=== PATIENT | female | born 1935 | race Caucasian/White ===

== ENCOUNTER 2016-05-01 12:52 | Inpatient (IN) | payer MEDICARE ==
[2016-05-01 15:47] VITALS: BMI 38.2
[2016-05-01] MEDS: KETOROLAC 30 MG/ML 1 ML VIAL IVP SCH (18:04)
[2016-05-01] MEDS: LIDOCAINE 5% PATCH TOPICAL SCH (18:05)
[2016-05-01] MEDS ORDERED: CYCLOBENZAPRINE 5 MG TAB PO STA (19:29)
--- NOTE | 2016-05-01 19:29 | P.HPIM ---
History of Present Illness H&P Date: 05/01/16 Chief Complaint: abd pain 80 yr old female with history of COPD is admitted to the hospital from [facility] after being admitted for sudden onset of abdominal pain. Pt apparently got out of bed on tuesday, suddenly noticed abdominal pain, right sided, radiating to her groin, intermittent in nature, exacerbated by movement relieved with rest. Pt thereafter drove to the ER, pt was admitted and was seen by Dr Waddell. Pt was in good health till she woke up that morning, denies having any fevers, chills, change in bowel habits, urinary urgency or frequency. Pt then underwent a CT scan to rule out appendicitis, was noted to have a non inflamed appendix, with non specific diverticuli, with no signs of active inflammation. No signs of occult fracture was noted. today, pt complaints of pain, with raising her right lower extremity, points to an area about 10cms from her umbilicus, laterally to the right. No previous surgeries in that area. Is usually healthy and very active. pt apparently also removed mariusz lights the night before the pain started, maneuvering around with a ladder. 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 History of Any Multi-Drug Resistant Organisms: None Reported Past Surgical History: Back Surgery Additional Past Surgical History / Comment(s): LAMINECTOMY, LEFT TOE SURGERY, ELBOW ON RIGHT, RIGHT CARPAL TUNNEL Past Anesthesia/Blood Transfusion Reactions: No Reported Reaction Past Psychological History: No Psychological Hx Reported Smoking Status: Never smoker - Past Family History Mother Additional Family Medical History / Comment(s): MOM PASSED FROM BLOOD CLOT Father Family Medical History: Dementia Medications and Allergies Home Medications Medication Instructions Recorded Confirmed Type Albuterol Sulfate [Proair Hfa] 1 puff INHALATION RT-BID 05/01/16 05/01/16 History Aspirin [Adult Low Dose Aspirin EC] 81 mg PO DAILY 05/01/16 05/01/16 History Budesonide/Formoterol Fumarate 2 puff INHALATION RT-BID 05/01/16 05/01/16 History [Symbicort 80-4.5 Mcg Inhaler] Cyanocobalamin (Vitamin B-12) 1 tab PO DAILY 05/01/16 05/01/16 History [Vitamin B12] Furosemide [Lasix] 20 mg PO DAILY 05/01/16 05/01/16 History Lisinopril [Zestril] 20 mg PO DAILY 05/01/16 05/01/16 History Multivitamin [Multivitamins Adult 1 tab PO DAILY 05/01/16 05/01/16 History Gummies] Simvastatin [Zocor] 40 mg PO HS 05/01/16 05/01/16 History Tiotropium 18 Mcg/Puff [Spiriva] 1 cap INHALATION RT-DAILY 05/01/16 05/01/16 History Vit A,C & E/Lutein/Minerals 1 tab PO DAILY 05/01/16 05/01/16 History [Ocuvite with Lutein Tablet] Allergies Allergy/AdvReac Type Severity Reaction Status Date / Time Sulfa (Sulfonamide Allergy Anaphylaxis Verified 05/01/16 15:47 Antibiotics) Physical Exam Vitals: Vital Signs Temp Pulse Resp BP Pulse Ox 05/01/16 15:14 101.2 F H 87 22 96/58 91 L Intake and Output 05/01/16 05/01/16 05/01/16 06:59 14:59 22:59 Other: Voiding Method Indwelling Catheter Weight 86 kg Patient Weight 05/02/16 06:59 Weight 86 kg Gen a & O times 4, appears to be in mod distress Lungs CTA b/l, no rhochi, wheezing appreciated Heart RRR, No murmurs appreciated, s1, s2 heard Abdomen: soft, point tenderness in the right lower quadrant, mostly in the abdominal wall, was able to reproduce the pain with pinching the abdominal wall fat. No RUQ tenderness. straight leg raise worsens the pain, however, it is more predominat at the same point, no organomegaly appreciated Hip joint appears stable, non tender to manipulation. Gamino in place Neuro : no focal motor or sensory deficits noted. Thrombosis Risk Factor Assmnt - Choose All That Apply Each Factor Represents 1 point: Obesity (BMI >25) Other Risk Factors: Yes Each Risk Factor Represents 3 Points: Age 75 years or older Other congenital or acquired thrombophilia - If yes, enter type in comment: No Thrombosis Risk Factor Assessment Total Risk Factor Score: 4 Thrombosis Risk Factor Assessment Level: Moderate Risk Assessment and Plan Plan: Abdominal pain, likely secondary to abdominal wall injury with rectus muscle sprain/tear vs panniculitis COPD that is stable HTN stable Dyslipidemia Plan Lidocaine patch one dose of flexeril Toradol 15mg iv q6h Reviewed ct scan results Lab work from [facility] Bed rest DVT prophylaxis with lovenox. Will obtain calcium and phos levels. to obtain a ca, phos score to rule out calciphylaxis. pain control.
[2016-05-01] MEDS: ALBUTEROL NEBULIZED 2.5 MG/3 ML INHALATION SCH (19:48)
[2016-05-01] MEDS: SYMBICORT 80-4.5 MCG INHALER INHALATION SCH (19:48)
[2016-05-01] MEDS: ENOXAPARIN 40 MG/0.4 ML SYRINGE SQ SCH (22:55)
[2016-05-02] MEDS: KETOROLAC 30 MG/ML 1 ML VIAL IVP SCH ×5 (00:02→23:22)
[2016-05-02] MEDS: ATORVASTATIN 20 MG TAB PO SCH ×2 (00:09→22:18)
[2016-05-02] MEDS: ALBUTEROL NEBULIZED 2.5 MG/3 ML INHALATION SCH ×2 (07:40→20:09)
[2016-05-02] MEDS: TIOTROPIUM 18 MCG/PUFF INHALER INHALATION SCH (08:35)
[2016-05-02] MEDS: SYMBICORT 80-4.5 MCG INHALER INHALATION SCH ×2 (08:38→20:09)
[2016-05-02] MEDS: ASPIRIN 81 MG CHEW PO SCH (09:20)
[2016-05-02] MEDS: LIDOCAINE 5% PATCH TOPICAL SCH (09:21)
[2016-05-02] MEDS: CYANOCOBALAMIN 500 MCG TAB PO SCH (09:21)
[2016-05-02 09:26] LABS: Basophils % (A) 1 %; CH 28.6; CHCM 31.3; Eosinophils # (A) 0.1 k/uL (0-0.7); Eosinophils % (A) 1 %; HCT 36.3 % (34.0-46.0); HDW 2.34; HGB 11.2 gm/dL (11.4-16.0); Luc % (Auto) 2; Lymphocytes # (A) 1.8 k/uL (1.0-4.8); Lymphocytes % (A) 30 %; MCH 28.4 pg (25.0-35.0); MCV 91.9 fL (80.0-100.0); Mean Platelet Volume 7.2; Monocytes # (A) 0.3 k/uL (0-1.0); Monocytes % (A) 6 %; Neutrophils # (A) 3.7 k/uL (1.3-7.7); Neutrophils % (A) 61 %; RBC 3.95 m/uL (3.80-5.40); RDW 13.5 % (11.5-15.5); WBC (Perox) 6.38
[2016-05-02 09:44] LABS: ALT 31 U/L (9-52); AST 18 U/L (14-36); Alkaline Phosphatase 70 U/L (38-126); Anion Gap 8 mmol/L; Blood Urea Nitrogen 22 mg/dL (7-17); Calcium 8.6 mg/dL (8.4-10.2); Carbon Dioxide 25 mmol/L (22-30); Chloride 106 mmol/L (98-107); Glucose 70 mg/dL (74-99); Non-African American GFR(MDRD) 57 (>60 ml/min/1.73 sqM); Phosphorous 3.8 mg/dL (2.5-4.5); Potassium 4.5 mmol/L (3.5-5.1); Sodium 139 mmol/L (137-145); Total Bilirubin 0.4 mg/dL (0.2-1.3); Total Protein 5.8 g/dL (6.3-8.2)
[2016-05-02] MEDS: HYDROmorphone 1 MG/ML 1 ML SYRINGE IVP PRN (13:23)
[2016-05-02] MEDS: ENOXAPARIN 40 MG/0.4 ML SYRINGE SQ SCH (17:44)
--- NOTE | 2016-05-02 19:07 | P.PN ---
Subjective 80-year-old female is admitted to the hospital from [facility] after being admitted for sudden onset of abdominal pain. Patient underwent a computed tomography scan of the abdomen pelvis and lower extremities did not reveal any abnormalities. Patient started having abdominal pain suddenly after moving out of bed. Pain appears to be secondary to his abdominal wall injury, or muscle sprain versus panniculitis Denies having any fevers, chills, nausea, vomiting, diarrhea. Patient states that the pain gets worse with any movement or raising her right lower extremity. Objective - Vital Signs Vital signs: Vital Signs Temp 98.6 F 05/02/16 14:53 Pulse 67 05/02/16 14:53 Resp 18 05/02/16 14:53 BP 112/54 05/02/16 14:53 Pulse Ox 96 05/02/16 14:53 Intake & Output 05/02/16 05/02/16 05/03/16 06:59 18:59 06:59 Output Total 800 600 Balance -800 -600 Output: Urine 800 600 Other: Voiding Method Indwelling Catheter Indwelling Catheter - Exam Gen. appearance alert oriented 3 in mild distress Lungs good air entry clear to auscultation no rhonchi or wheezing Heart S1-S2 heard regular rate and rhythm no murmurs appreciated Abdomen Is soft, point tenderness in the right hemiabdomen about 10 cm lateral to the umbilicus. Also reproduced with flexion at the hip joint Neurologically no focal motor or sensory deficits appreciated Neck is supple no JVD - Labs CBC & Chem 7: 05/02/16 08:43 05/02/16 08:43 Labs: Abnormal Lab Results - Last 24 Hours (Table) 05/02/16 05/02/16 Range/Units 08:43 08:43 Hgb 11.2 L (11.4-16.0) gm/dL BUN 22 H (7-17) mg/dL Glucose 70 L (74-99) mg/dL Total Protein 5.8 L (6.3-8.2) g/dL Albumin 3.1 L (3.5-5.0) g/dL Assessment and Plan Plan: Abdominal pain, likely secondary to abdominal wall injury with rectus muscle sprain/tear vs panniculitis COPD that is stable HTN stable Dyslipidemia Plan Lidocaine patch Continue with Dilaudid. Toradol 15mg iv q6h Reviewed ct scan results Lab work from [facility] Bed rest DVT prophylaxis with lovenox.
[2016-05-03] MEDS: HYDROmorphone 1 MG/ML 1 ML SYRINGE IVP PRN ×4 (01:15→23:06)
[2016-05-03] MEDS: KETOROLAC 30 MG/ML 1 ML VIAL IVP SCH ×4 (05:54→23:01)
[2016-05-03] MEDS: TIOTROPIUM 18 MCG/PUFF INHALER INHALATION SCH (07:30)
[2016-05-03] MEDS: SYMBICORT 80-4.5 MCG INHALER INHALATION SCH ×2 (07:30→20:33)
[2016-05-03] MEDS: ALBUTEROL NEBULIZED 2.5 MG/3 ML INHALATION SCH ×2 (07:31→20:33)
[2016-05-03 09:11] LABS: Basophils % (A) 0 %; CH 28.3; Eosinophils # (A) 0.2 k/uL (0-0.7); Eosinophils % (A) 4 %; HCT 36.4 % (34.0-46.0); HDW 2.35; HGB 11.6 gm/dL (11.4-16.0); Luc # (Auto) 0.14; Luc % (Auto) 2; Lymphocytes # (A) 1.5 k/uL (1.0-4.8); Lymphocytes % (A) 26 %; MCH 28.1 pg (25.0-35.0); MCHC 31.8 g/dL (31.0-37.0); MCV 88.6 fL (80.0-100.0); Mean Platelet Volume 6.7; Monocytes # (A) 0.3 k/uL (0-1.0); Monocytes % (A) 5 %; Neutrophils # (A) 3.7 k/uL (1.3-7.7); Neutrophils % (A) 62 %; RDW 13.4 % (11.5-15.5)
[2016-05-03] MEDS: ASPIRIN 81 MG CHEW PO SCH (10:22)
[2016-05-03] MEDS: CYANOCOBALAMIN 500 MCG TAB PO SCH (10:22)
[2016-05-03] MEDS: LIDOCAINE 5% PATCH TOPICAL SCH (10:22)
[2016-05-03] MEDS: ENOXAPARIN 40 MG/0.4 ML SYRINGE SQ SCH (17:46)
[2016-05-03] MEDS: ATORVASTATIN 20 MG TAB PO SCH (20:07)
--- NOTE | 2016-05-03 21:04 | P.PN ---
Subjective 80-year-old female is admitted to the hospital from [facility] after being admitted for sudden onset of abdominal pain. Patient underwent a computed tomography scan of the abdomen pelvis and lower extremities did not reveal any abnormalities. Patient started having abdominal pain suddenly after moving out of bed. Pain appears to be secondary to his abdominal wall injury, or muscle sprain versus panniculitis Denies having any fevers, chills, nausea, vomiting, diarrhea. Patient states that the pain gets worse with any movement or raising her right lower extremity. 05/03/2016 Patient continues to have abdominal pain is slightly better controlled on the current pain medications. Denies having any fevers, urinary urgency or frequency. No change in bowel habits reported. Objective - Vital Signs Vital signs: Vital Signs Temp 97.7 F 05/03/16 15:00 Pulse 78 05/03/16 20:43 Resp 20 05/03/16 15:00 BP 116/57 05/03/16 15:00 Pulse Ox 96 05/03/16 15:00 Intake & Output 05/03/16 05/03/16 05/04/16 06:59 18:59 06:59 Output Total 675 1000 Balance -675 -1000 Weight 89 kg Output: Urine 675 1000 Other: Voiding Method Indwelling Catheter Indwelling Catheter Indwelling Catheter # Voids 1 - Exam Gen. appearance alert oriented 3 in mild distress Lungs good air entry clear to auscultation no rhonchi or wheezing Heart S1-S2 heard regular rate and rhythm no murmurs appreciated Abdomen Is soft, point tenderness in the right hemiabdomen about 10 cm lateral to the umbilicus. Also reproduced with flexion at the hip joint Neurologically no focal motor or sensory deficits appreciated Neck is supple no JVD - Labs CBC & Chem 7: 05/03/16 08:15 05/02/16 08:43 Assessment and Plan Plan: Abdominal pain, likely secondary to abdominal wall injury with rectus muscle sprain/tear vs panniculitis COPD that is stable HTN stable Dyslipidemia Plan Lidocaine patch Continue with Dilaudid. Toradol 15mg iv q6h We'll obtain a MRI of the abdomen and right hip to evaluate entrapment syndrome/ muscle injury. Bed rest DVT prophylaxis with lovenox.
[2016-05-04] MEDS: HYDROmorphone 1 MG/ML 1 ML SYRINGE IVP PRN ×3 (03:49→14:57)
[2016-05-04] MEDS: KETOROLAC 30 MG/ML 1 ML VIAL IVP SCH ×3 (06:04→17:12)
--- NOTE | 2016-05-04 09:04 | MR ---
EXAMINATION TYPE: MR abdomen wo con DATE OF EXAM: 05/04/2016 8:49 AM COMPARISON: Outside CT abdomen and pelvis from 4 days earlier HISTORY: Abdominal wall injury, pain in right lower abdomen. Standard multiplanar, multisequence MRI departmental protocol Multiplanar, multisequence images of the abdomen were acquired. FINDINGS: Liver is normal in size. Some mild diffuse signal dropout consistent with mild fatty infilt ration is present. Gallbladder has distended margins without intraluminal gallstones or abnormal gall bladder wall thickening. Common bile duct measures up to 7 mm in diameter which is upper limits of no rmal for patient's age. There is a nonspecific 7 mm thin-walled cystic lesion in the pancreatic body that can be followed. Adrenal glands are within normal limits. Renal sizes are symmetric and slightly small. There are a few simple appearing cysts scattered throughout the right kidney. No hydronephros is is evident bilaterally. There is small to moderate-sized hiatal hernia. There is no suspicious small or large bowel dilatatio n. Normal-appearing appendix is seen from the cecum. Scattered colonic diverticula are present. Small area of abnormal stranding within the fat anteriorly in the mid left colon is redemonstrated seen be st on axial image 15. No free abdominal fluid collection is seen. No suspicious greater than 1 cm abd ominal adenopathy is noted. Anterior abdominal wall is intact without suspicious lateral bowel containing hernia. No worrisome petty bcutaneous solid or cystic mass or fluid collection is seen. There is some facet arthropathy and disc herniation contributing to spinal canal effacement at multip le levels in the mid lumbar spine. Slightly ectatic descending aorta is redemonstrated. IMPRESSION: Small focal area of epiploic appendagitis versus fatty infarction in the left colon mid segment anter ior aspect is redemonstrated at level just below umbilicus. No fat or bowel containing ventral wall h ernia identified. No new finding identified on this MRI to account for patient's symptoms.
[2016-05-04] MEDS: CYANOCOBALAMIN 500 MCG TAB PO SCH (09:37)
[2016-05-04] MEDS: LIDOCAINE 5% PATCH TOPICAL SCH (09:37)
[2016-05-04] MEDS: ASPIRIN 81 MG CHEW PO SCH (09:38)
[2016-05-04] MEDS: ALBUTEROL NEBULIZED 2.5 MG/3 ML INHALATION SCH ×2 (09:55→20:16)
[2016-05-04] MEDS: SYMBICORT 80-4.5 MCG INHALER INHALATION SCH ×2 (09:55→20:16)
[2016-05-04] MEDS: TIOTROPIUM 18 MCG/PUFF INHALER INHALATION SCH (09:56)
[2016-05-04 10:21] LABS: Basophils % (A) 0 %; CH 28.2; CHCM 31.7; Eosinophils # (A) 0.3 k/uL (0-0.7); Eosinophils % (A) 5 %; HCT 38.9 % (34.0-46.0); HDW 2.35; HGB 12.2 gm/dL (11.4-16.0); Luc # (Auto) 0.09; Luc % (Auto) 1; Lymphocytes # (A) 1.1 k/uL (1.0-4.8); Lymphocytes % (A) 17 %; MCHC 31.3 g/dL (31.0-37.0); MCV 89.4 fL (80.0-100.0); Mean Platelet Volume 6.7; Monocytes # (A) 0.4 k/uL (0-1.0); Monocytes % (A) 6 %; Neutrophils # (A) 4.3 k/uL (1.3-7.7); Neutrophils % (A) 70 %; RBC 4.35 m/uL (3.80-5.40); RDW 13.4 % (11.5-15.5); WBC 6.1 k/uL (3.8-10.6); WBC (Perox) 6.78
[2016-05-04 10:29] LABS: ALT 30 U/L (9-52); AST 22 U/L (14-36); Alkaline Phosphatase 69 U/L (38-126); Anion Gap 7 mmol/L; Blood Urea Nitrogen 18 mg/dL (7-17); Calcium 9.6 mg/dL (8.4-10.2); Carbon Dioxide 27 mmol/L (22-30); Chloride 107 mmol/L (98-107); Glucose 91 mg/dL (74-99); Non-African American GFR(MDRD) >60 (>60 ml/min/1.73 sqM); Potassium 4.9 mmol/L (3.5-5.1); Sodium 141 mmol/L (137-145); Total Bilirubin 0.6 mg/dL (0.2-1.3); Total Protein 6.1 g/dL (6.3-8.2)
--- NOTE | 2016-05-04 11:01 | MR ---
EXAMINATION TYPE: MR hip RT wo con DATE OF EXAM: 05/04/2016 8:49 AM COMPARISON: CT abdomen pelvis 04/30/2016 HISTORY: 80-year-old female Pain in right hip and groin, no known injury. TECHNIQUE: Multiplanar, multisequence images of the right hip were obtained without IV contrast. FINDINGS: There is mild to moderate generalized muscular atrophy throughout the musculature about the pelvis sp aring the adductors and iliopsoas. The rectus femoris origins are maintained. Mild tendinotic signal at the origin of the left hamstring s but otherwise, hamstrings origins are intact. The iliopsoas insertions are intact with some tendinosis on the right. There some increased signal at both gluteal insertions and mild bilateral gluteus minimus bursal effu sions. There is a small partial-thickness tear involving the lateral insertional fibers of the gluteu s medius on both sides. Normal course, caliber, and signal intensity of the sciatic nerves. Slight asymmetric edema in the subcutaneous fat of the lateral right hip, for example, series 701 axi al image 10. There is some edematous change with more confluent subcutaneous edema overlying the superficial fasci a laterally lower right abdomen, series 701, axial image 29. Some degenerative subarticular signal at the right greater than left SI joints. No evidence for hip f racture or AVN. No pelvic fracture is seen. No suspicious bone marrow replacement. There is degenerat kieran subchondral signal change and some bony irregularity at the pubic symphysis. Mild to moderate degenerative changes at both hips without significant hip joint effusion. Mild presacral edema and trace pelvic free fluid possibly an independent basis. Gamino catheter is in place decompressing the bladder. Sigmoid diverticulosis is noted. IMPRESSION: 1. Mild to moderate bilateral hip osteoarthrosis. No evidence for pelvic or hip fracture. 2. Bilateral insertional gluteal tendinosis and small partial-thickness tears of the lateral insertio nal fibers of the gluteus medius on both sides. 3. Some confluent edema in the subcutaneous fat lateral right hip and also along the lower right abdo men. Findings could reflect soft tissue contusion related to an injury. 4. Some presacral edema and mild pelvic free fluid. Findings could be reactive to some intra-abdomina l process or secondary to some degree of fluid overload. Clinically correlate. 5. Osteitis pubis. Sigmoid diverticulosis. Gamino catheter in place. Generalized muscular atrophy.
[2016-05-04] MEDS: ENOXAPARIN 40 MG/0.4 ML SYRINGE SQ SCH (17:12)
[2016-05-04] MEDS: MORPHINE SULFATE ER 15 MG TABLET PO SCH (20:33)
[2016-05-04] MEDS: ATORVASTATIN 20 MG TAB PO SCH (20:33)
--- NOTE | 2016-05-04 21:47 | P.PN ---
Subjective 80-year-old female is admitted to the hospital from [facility] after being admitted for sudden onset of abdominal pain. Patient underwent a computed tomography scan of the abdomen pelvis and lower extremities did not reveal any abnormalities. Patient started having abdominal pain suddenly after moving out of bed. Pain appears to be secondary to his abdominal wall injury, or muscle sprain versus panniculitis Denies having any fevers, chills, nausea, vomiting, diarrhea. Patient states that the pain gets worse with any movement or raising her right lower extremity. 05/03/2016 Patient continues to have abdominal pain is slightly better controlled on the current pain medications. Denies having any fevers, urinary urgency or frequency. No change in bowel habits reported. 05/04/16 States to be improved in regards to pain control No fevers, chills, nausea or vomiting are reported. Objective - Vital Signs Vital signs: Vital Signs Temp 98.3 F 05/04/16 15:00 Pulse 80 05/04/16 20:26 Resp 20 05/04/16 15:00 BP 144/71 05/04/16 15:00 Pulse Ox 97 05/04/16 15:00 Intake & Output 05/04/16 05/04/16 05/05/16 06:59 18:59 06:59 Intake Total 450 Output Total 950 1150 Balance -500 -1150 Weight 89 kg Intake: Oral 450 Output: Urine 950 1150 Other: Voiding Method Indwelling Catheter Indwelling Catheter Indwelling Catheter - Exam Gen. appearance alert oriented 3 in mild distress Lungs good air entry clear to auscultation no rhonchi or wheezing Heart S1-S2 heard regular rate and rhythm no murmurs appreciated Abdomen Is soft, point tenderness in the right hemiabdomen about 10 cm lateral to the umbilicus. Also reproduced with flexion at the hip joint Neurologically no focal motor or sensory deficits appreciated Neck is supple no JVD - Labs CBC & Chem 7: 05/04/16 09:13 05/04/16 09:13 Labs: Abnormal Lab Results - Last 24 Hours (Table) 05/04/16 Range/Units 09:13 BUN 18 H (7-17) mg/dL Total Protein 6.1 L (6.3-8.2) g/dL Albumin 3.2 L (3.5-5.0) g/dL Assessment and Plan Plan: Abdominal pain, likely secondary to abdominal wall injury with rectus muscle sprain/tear vs panniculitis COPD that is stable HTN stable Dyslipidemia Plan Lidocaine patch Continue with Dilaudid. Toradol 15mg iv q6h Mri does show gluteus medius partial tear and some fat stranding at the right hip. Fat stranding noted at paracolic gutter around the colon, however no bowel symptoms are reported. PT/OT d/c villeda cath May benefit from a inpatient vs outpatient rehab on discharge. Bed rest DVT prophylaxis with lovenox.
[2016-05-05] MEDS: KETOROLAC 30 MG/ML 1 ML VIAL IVP SCH ×3 (04:04→11:38)
[2016-05-05] MEDS: CYANOCOBALAMIN 500 MCG TAB PO SCH (07:54)
[2016-05-05] MEDS: LIDOCAINE 5% PATCH TOPICAL SCH (07:54)
[2016-05-05] MEDS: ASPIRIN 81 MG CHEW PO SCH (07:54)
[2016-05-05] MEDS: MORPHINE SULFATE ER 15 MG TABLET PO SCH ×2 (07:55→21:27)
[2016-05-05] MEDS: SYMBICORT 80-4.5 MCG INHALER INHALATION SCH ×2 (09:24→19:44)
[2016-05-05] MEDS: TIOTROPIUM 18 MCG/PUFF INHALER INHALATION SCH (09:24)
[2016-05-05] MEDS: ALBUTEROL NEBULIZED 2.5 MG/3 ML INHALATION SCH ×2 (09:24→19:44)
--- NOTE | 2016-05-05 10:28 | P.CONS ---
History of Present Illness - Chief Complaint Medical debility - History of Present Illness I had the opportunity see patient for inpatient rehab consultation with regard to medical debility, today. She was admitted to [facility] May 01 as a transfer from [place] with abdominal pain and COPD. Note MRI of abdomen demonstrated epiploic appendagitis versus fatty infarct of left colon. MRI of hips demonstrated mild to moderate bilateral arthritis, bilateral gluteal tendinosis, edema in the right hip and lower right lower quadrant of the abdomen , pre-sacral/pelvic edema, osteitis pubis, muscle atrophy and IDC. PT and OT prescribed. Previous functional history: As elicited from patient and family. 80-year-old right-handed white female who is , lives and one for home alone. Retired. History smoking but doesn't smoke or drink currently. Independent with cooking, laundry, driving, standing shower and gait without device. Family history father of heart attack. Mother at young age of 27 with a blood clot. Review of Systems Review of systems: ENT: Denies sneezes or discharge. Eyes: Denies discharge or photophobia. Cardiac: Denies chest pain or palpitation. Pulmonary: Denies cough or shortness of breath. Breast: Denies discharge or lumps. Gastrointestinal: Mild abdominal discomfort but much improved from admission. Genitourinary: Denies discharge or frequency. Musculoskeletal: Denies muscle or bone aches. Neurologic: Denies motor or sensory change. Endocrine: Denies shakes or sweats. Oncology: Denies cancers. Dermatologic: Denies rash, itching, pruritus. ALLERGY/immunology: Denies sneezes, rashes. 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 History of Any Multi-Drug Resistant Organisms: None Reported Past Surgical History: Back Surgery Additional Past Surgical History / Comment(s): LAMINECTOMY, LEFT TOE SURGERY, ELBOW ON RIGHT, RIGHT CARPAL TUNNEL Past Anesthesia/Blood Transfusion Reactions: No Reported Reaction Past Psychological History: No Psychological Hx Reported Smoking Status: Never smoker - Past Family History Mother Additional Family Medical History / Comment(s): MOM PASSED FROM BLOOD CLOT Father Family Medical History: Dementia Medications and Allergies Home Medications Medication Instructions Recorded Confirmed Type Albuterol Sulfate [Proair Hfa] 1 puff INHALATION RT-BID 05/01/16 05/01/16 History Aspirin [Adult Low Dose Aspirin EC] 81 mg PO DAILY 05/01/16 05/01/16 History Budesonide/Formoterol Fumarate 2 puff INHALATION RT-BID 05/01/16 05/01/16 History [Symbicort 80-4.5 Mcg Inhaler] Cyanocobalamin (Vitamin B-12) 1 tab PO DAILY 05/01/16 05/01/16 History [Vitamin B12] Furosemide [Lasix] 20 mg PO DAILY 05/01/16 05/01/16 History Lisinopril [Zestril] 20 mg PO DAILY 05/01/16 05/01/16 History Multivitamin [Multivitamins Adult 1 tab PO DAILY 05/01/16 05/01/16 History Gummies] Simvastatin [Zocor] 40 mg PO HS 05/01/16 05/01/16 History Tiotropium 18 Mcg/Puff [Spiriva] 1 cap INHALATION RT-DAILY 05/01/16 05/01/16 History Vit A,C & E/Lutein/Minerals 1 tab PO DAILY 05/01/16 05/01/16 History [Ocuvite with Lutein Tablet] Allergies Allergy/AdvReac Type Severity Reaction Status Date / Time Sulfa (Sulfonamide Allergy Anaphylaxis Verified 05/01/16 15:47 Antibiotics) Physical Exam Vitals: Vital Signs Temp Pulse Pulse Resp BP Pulse Ox 05/05/16 09:36 76 05/05/16 09:24 76 05/05/16 07:00 98.5 F 75 20 123/56 94 L 05/04/16 23:00 98.0 F 75 16 141/67 98 05/04/16 20:26 80 05/04/16 20:16 80 05/04/16 15:00 98.3 F 81 20 144/71 97 Intake and Output 05/04/16 05/05/16 05/05/16 22:59 06:59 14:59 Output Total 650 800 Balance -650 -800 Output: Urine 650 800 Other: Voiding Method Indwelling Catheter Toilet Diaper Weight 89.5 kg Skin: Good color, texture, turgor. General: Overweight and comfortable appearance. Head: Normocephalic, atraumatic. Eyes: Symmetric. Pupils equal round. Ears: Symmetric. Hearing within normal limits. Mouth: Clear. Neck: Supple. Carotid without bruit. Cardiac: Regular rate and rhythm. Lungs: Clear anteriorly and posteriorly. Abdomen: Soft active nontender, overweight. Extremities: Normal tone. Arthritic changes throughout of at least mild severity, including hands. Neurological: Mental status: Alert, cooperative, pleasant. Cranial nerves: Symmetric facial tone and trapezius. Motor: Normal strength and isolation all 4 limbs. Sensation: Intact throughout. DTRs: Symmetric and equal throughout. Mobility: Sits and stands minimal (to moderate) assistance. Results CBC & Chem 7: 05/04/16 09:13 05/04/16 09:13 Labs: Abnormal Lab Results - Last 24 Hours (Table) 05/04/16 Range/Units 09:13 BUN 18 H (7-17) mg/dL Total Protein 6.1 L (6.3-8.2) g/dL Albumin 3.2 L (3.5-5.0) g/dL MRI - abdomen: report reviewed (Epiploic appendagitis versus fatty infarct left colon.) Assessment and Plan Plan: Impression: 1. Medical debility. 2. Abdominal pain related to some type of diverticulitis/appendagitis versus fatty infarct, left colon. 3. Bilateral hip arthritis. 4. Pelvis with osteitis pubis, presacral/pelvic edema, bilateral gluteal tendinosis. 5 COPD. 6. Hypertension. 7. Overweight to obese. 8. Osteoarthritis. Comments and plan: At this time physical and occupational therapies are prescribed. Have discussed would anticipate endurance limited. Have discussed possible options after this. Note granddaughter who was present, works at [employer], is discussed that patient is from Dr. Sharp for for [place] discharge. [facility] would be appropriate if patient requires ongoing therapy , from here. In fact patient should do quite well.
--- NOTE | 2016-05-05 12:16 | XR ---
EXAMINATION TYPE: XR chest 2V DATE OF EXAM: 05/05/2016 12:05 PM COMPARISON: NONE INDICATION: ECF placement TECHNIQUE: Frontal and lateral views of the chest are obtained. FINDINGS: The heart size is normal. The pulmonary vasculature is normal. Small posterior left pleural effusion may be present. Mild subsegmental atelectasis may be at the loretta g bases. IMPRESSION: 1. Mild subsegmental atelectasis bilateral lung bases. Pneumonia is considered less likely within the differential. 2. Small left pleural effusion. 3. Upper lung snyder are clear.
--- NOTE | 2016-05-05 16:00 | P.PN ---
Subjective 80-year-old female is admitted to the hospital from [facility] after being admitted for sudden onset of abdominal pain. Patient underwent a computed tomography scan of the abdomen pelvis and lower extremities did not reveal any abnormalities. Patient started having abdominal pain suddenly after moving out of bed. Pain appears to be secondary to his abdominal wall injury, or muscle sprain versus panniculitis Denies having any fevers, chills, nausea, vomiting, diarrhea. Patient states that the pain gets worse with any movement or raising her right lower extremity. 05/03/2016 Patient continues to have abdominal pain is slightly better controlled on the current pain medications. Denies having any fevers, urinary urgency or frequency. No change in bowel habits reported. 05/04/16 States to be improved in regards to pain control No fevers, chills, nausea or vomiting are reported. 05/05/2016 Significant improved. Is able to tolerate physical therapy. Objective - Vital Signs Vital signs: Vital Signs Temp 98.5 F 05/05/16 07:00 Pulse 76 05/05/16 09:36 Resp 20 05/05/16 07:00 BP 123/56 05/05/16 07:00 Pulse Ox 94 L 05/05/16 07:00 Intake & Output 05/04/16 05/05/16 05/05/16 18:59 06:59 18:59 Output Total 1150 1000 Balance -1150 -1000 Weight 89.5 kg Output: Urine 1150 1000 Other: Voiding Method Indwelling Catheter Indwelling Catheter Toilet Diaper # Voids 2 - Exam Gen. appearance alert oriented 3 in mild distress Lungs good air entry clear to auscultation no rhonchi or wheezing Heart S1-S2 heard regular rate and rhythm no murmurs appreciated Abdomen Is soft, point tenderness in the right hemiabdomen about 10 cm lateral to the umbilicus. 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 Toradol 15mg iv q6h Mri does show gluteus medius partial tear and some fat stranding at the right hip. Fat stranding noted at paracolic gutter around the colon, however no bowel symptoms are reported. PT/OT. Will likely be discharged [facility]. Dr. berger's recommendations are appreciated. Bed rest DVT prophylaxis with lovenox. Changed to inpatient care
[2016-05-05] MEDS: ENOXAPARIN 40 MG/0.4 ML SYRINGE SQ SCH (17:43)
[2016-05-05] MEDS: ATORVASTATIN 20 MG TAB PO SCH (21:27)
[2016-05-06] MEDS: SYMBICORT 80-4.5 MCG INHALER INHALATION SCH ×2 (08:55→19:14)
[2016-05-06] MEDS: ALBUTEROL NEBULIZED 2.5 MG/3 ML INHALATION SCH ×2 (08:55→19:14)
[2016-05-06] MEDS: TIOTROPIUM 18 MCG/PUFF INHALER INHALATION SCH (08:55)
[2016-05-06] MEDS: MORPHINE SULFATE ER 15 MG TABLET PO SCH ×2 (09:26→20:00)
[2016-05-06] MEDS: ASPIRIN 81 MG CHEW PO SCH (09:27)
[2016-05-06] MEDS: CYANOCOBALAMIN 500 MCG TAB PO SCH (09:27)
[2016-05-06] MEDS: LIDOCAINE 5% PATCH TOPICAL SCH (09:28)
--- NOTE | 2016-05-06 16:30 | P.PN ---
Subjective 80-year-old female is admitted to the hospital from [facility] after being admitted for sudden onset of abdominal pain. Patient underwent a computed tomography scan of the abdomen pelvis and lower extremities did not reveal any abnormalities. Patient started having abdominal pain suddenly after moving out of bed. Pain appears to be secondary to his abdominal wall injury, or muscle sprain versus panniculitis Denies having any fevers, chills, nausea, vomiting, diarrhea. Patient states that the pain gets worse with any movement or raising her right lower extremity. 05/03/2016 Patient continues to have abdominal pain is slightly better controlled on the current pain medications. Denies having any fevers, urinary urgency or frequency. No change in bowel habits reported. 05/04/16 States to be improved in regards to pain control No fevers, chills, nausea or vomiting are reported. 05/05/2016 Significant improved. Is able to tolerate physical therapy 05/06/2016 Improved. No new complaints.. Objective - Vital Signs Vital signs: Vital Signs Temp 99.0 F 05/06/16 14:12 Pulse 87 05/06/16 14:12 Resp 18 05/06/16 14:12 BP 111/61 05/06/16 14:12 Pulse Ox 92 L 05/06/16 14:12 Intake & Output 05/05/16 05/06/16 05/06/16 18:59 06:59 18:59 Intake Total 240 Output Total 600 Balance -600 240 Weight 87 kg Intake: Oral 240 Output: Urine 600 Other: Voiding Method Toilet Toilet Diaper Diaper # Voids 2 2 4 - Exam Gen. appearance alert oriented 3 in mild distress Lungs good air entry clear to auscultation no rhonchi or wheezing Heart S1-S2 heard regular rate and rhythm no murmurs appreciated Abdomen Is soft, point tenderness in the right hemiabdomen about 10 cm lateral to the umbilicus. 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 Toradol 15mg iv q6h Mri does show gluteus medius partial tear and some fat stranding at the right hip. Fat stranding noted at paracolic gutter around the colon, however no bowel symptoms are reported. PT/OT. Will likely be discharged [facility]. Dr. berger's recommendations are appreciated. Bed rest DVT prophylaxis with lovenox. Changed to inpatient care
[2016-05-06] MEDS: ENOXAPARIN 40 MG/0.4 ML SYRINGE SQ SCH (17:55)
[2016-05-06] MEDS: ATORVASTATIN 20 MG TAB PO SCH (20:01)
[2016-05-06] MEDS: HYDROmorphone 1 MG/ML 1 ML SYRINGE IVP PRN (22:05)
[2016-05-07] MEDS: ASPIRIN 81 MG CHEW PO SCH (08:21)
[2016-05-07] MEDS: CYANOCOBALAMIN 500 MCG TAB PO SCH (08:21)
[2016-05-07] MEDS: LIDOCAINE 5% PATCH TOPICAL SCH (08:21)
[2016-05-07] MEDS: MORPHINE SULFATE ER 15 MG TABLET PO SCH ×2 (08:21→20:06)
[2016-05-07] MEDS: ALBUTEROL NEBULIZED 2.5 MG/3 ML INHALATION SCH ×2 (08:43→20:46)
[2016-05-07] MEDS: SYMBICORT 80-4.5 MCG INHALER INHALATION SCH ×2 (08:44→20:48)
[2016-05-07] MEDS: TIOTROPIUM 18 MCG/PUFF INHALER INHALATION SCH (08:44)
--- NOTE | 2016-05-07 15:58 | P.PN ---
Subjective 80-year-old female is admitted to the hospital from [facility] after being admitted for sudden onset of abdominal pain. Patient underwent a computed tomography scan of the abdomen pelvis and lower extremities did not reveal any abnormalities. Patient started having abdominal pain suddenly after moving out of bed. Pain appears to be secondary to his abdominal wall injury, or muscle sprain versus panniculitis Denies having any fevers, chills, nausea, vomiting, diarrhea. Patient states that the pain gets worse with any movement or raising her right lower extremity. 05/03/2016 Patient continues to have abdominal pain is slightly better controlled on the current pain medications. Denies having any fevers, urinary urgency or frequency. No change in bowel habits reported. 05/04/16 States to be improved in regards to pain control No fevers, chills, nausea or vomiting are reported. 05/05/2016 Significant improved. Is able to tolerate physical therapy 05/06/2016 Improved. No new complaints.. 05/07/2016 improved no new complaints. Patient is able to ambulate Objective - Vital Signs Vital signs: Vital Signs Temp 98.0 F 05/07/16 15:00 Pulse 78 05/07/16 15:00 Resp 16 05/07/16 15:00 BP 92/56 05/07/16 15:00 Pulse Ox 95 05/07/16 15:00 Intake & Output 05/06/16 05/07/16 05/07/16 18:59 06:59 18:59 Intake Total 365 740 200 Balance 365 740 200 Weight 83.5 kg Intake: IV 220 0.9@NS @ 20 ml/hr 220 Oral 365 520 200 Other: Voiding Method Toilet Toilet # Voids 2 2 3 - Exam Gen. appearance alert oriented 3 in mild distress Lungs good air entry clear to auscultation no rhonchi or wheezing Heart S1-S2 heard regular rate and rhythm no murmurs appreciated Abdomen Is soft, point tenderness in the right hemiabdomen about 10 cm lateral to the umbilicus. 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 We'll likely discharge the patient tomorrow. Toradol 15mg iv q6h Mri does show gluteus medius partial tear and some fat stranding at the right hip. Fat stranding noted at paracolic gutter around the colon, however no bowel symptoms are reported. PT/OT. Will likely be discharged [facility]. Bed rest DVT prophylaxis with lovenox. Changed to inpatient care
[2016-05-07] MEDS: ENOXAPARIN 40 MG/0.4 ML SYRINGE SQ SCH (16:57)
[2016-05-07] MEDS: ATORVASTATIN 20 MG TAB PO SCH (20:06)
[2016-05-08 07:36] VITALS: BP 101/58; RESP 20; TEMP 98.2
[2016-05-08] MEDS: MORPHINE SULFATE ER 15 MG TABLET PO SCH (08:39)
[2016-05-08] MEDS: LIDOCAINE 5% PATCH TOPICAL SCH (08:40)
[2016-05-08] MEDS: ASPIRIN 81 MG CHEW PO SCH (08:40)
[2016-05-08] MEDS: CYANOCOBALAMIN 500 MCG TAB PO SCH (08:40)
[2016-05-08] MEDS: SYMBICORT 80-4.5 MCG INHALER INHALATION SCH (09:43)
[2016-05-08] MEDS: ALBUTEROL NEBULIZED 2.5 MG/3 ML INHALATION SCH (09:43)
[2016-05-08] MEDS: TIOTROPIUM 18 MCG/PUFF INHALER INHALATION SCH (09:43)
[2016-05-08 12:35] VITALS: PULSE 87
--- NOTE | 2016-05-08 13:11 | P.DS ---
Providers Date of admission: 05/05/16 09:51 Expected date of discharge: 05/08/16 Attending physician: vIanna Sommers Consults: 05/05/16 09:45 Consult Physician Routine Consulting Provider: Yfn Barry Consult Reason/Comments: Rehab Do you want consulting provider notified?: Yes Primary care physician: [facility] Course: Subjective 80-year-old female is admitted to the hospital from [facility] after being admitted for sudden onset of abdominal pain. Patient underwent a computed tomography scan of the abdomen pelvis and lower extremities did not reveal any abnormalities. Patient started having abdominal pain suddenly after moving out of bed. Pain appears to be secondary to his abdominal wall injury, or muscle sprain versus panniculitis Denies having any fevers, chills, nausea, vomiting, diarrhea. Patient states that the pain gets worse with any movement or raising her right lower extremity. 05/03/2016 Patient continues to have abdominal pain is slightly better controlled on the current pain medications. Denies having any fevers, urinary urgency or frequency. No change in bowel habits reported. 05/04/16 States to be improved in regards to pain control No fevers, chills, nausea or vomiting are reported. 05/05/2016 Significant improved. Is able to tolerate physical therapy 05/06/2016 Improved. No new complaints.. 05/07/2016 improved no new complaints. Patient is able to ambulate 2016 Patient is able to stand without any help. Pain seems to be well-controlled. Denies having any nausea vomiting. Patient is able tolerate diet. - Exam Gen. appearance alert oriented 3 in mild distress Lungs good air entry clear to auscultation no rhonchi or wheezing Heart S1-S2 heard regular rate and rhythm no murmurs appreciated Abdomen Is soft, point tenderness in the right hemiabdomen about 10 cm lateral to the umbilicus. 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 Patient will be discharged to intermediate. These medications should ideally be discontinued in the next week to 2 weeks as patient's muscle tear pain will improve. Plan - Discharge Summary New Discharge Prescriptions: HYDROcodone/APAP 7.5-325MG [[place] 7.5-325] 1 tab PO Q6HR PRN #50 tab PRN Reason: Pain Morphine Sulfate ER [Ms Contin] 15 mg PO Q12HR #60 tablet Discharge Medication List Albuterol Sulfate [Proair Hfa] 1 puff INHALATION RT-BID 05/01/16 [History] Aspirin [Adult Low Dose Aspirin EC] 81 mg PO DAILY 05/01/16 [History] Budesonide/Formoterol Fumarate [Symbicort 80-4.5 Mcg Inhaler] 2 puff INHALATION RT-BID 05/01/16 [History] Cyanocobalamin (Vitamin B-12) [Vitamin B12] 1 tab PO DAILY 05/01/16 [History] Furosemide [Lasix] 20 mg PO DAILY 05/01/16 [History] Lisinopril [Zestril] 20 mg PO DAILY 05/01/16 [History] Multivitamin [Multivitamins Adult Gummies] 1 tab PO DAILY 05/01/16 [History] Simvastatin [Zocor] 40 mg PO HS 05/01/16 [History] Tiotropium 18 Mcg/Puff [Spiriva] 1 cap INHALATION RT-DAILY 05/01/16 [History] Vit A,C & E/Lutein/Minerals [Ocuvite with Lutein Tablet] 1 tab PO DAILY [History] HYDROcodone/APAP 7.5-325MG [[place] 7.5-325] 1 tab PO Q6HR PRN #50 tab 05/08/16 [ Rx] Morphine Sulfate ER [Ms Contin] 15 mg PO Q12HR #60 tablet 05/08/16 [Rx] Follow up Appointment(s)/Referral(s): Cristina Orozco MD [STAFF PHYSICIAN] - 1 Week Discharge Disposition: TRANSFER TO SNF/ECF
== END 2016-05-08 14:03 | DRG 392 ==
LOC: INTOOBSV 15:04 → 4MS4W 15:04 → OBSVTOIN 05-05 09:51
PROVIDERS: ADMIT Hospitalist; ATTEND Hospitalist
DX: R10.9 Unspecified abdominal pain (principal); J44.9 Chronic obstructive pulmonary disease, unspecified; M76.01 Gluteal tendinitis, right hip; M79.3 Panniculitis, unspecified; S39.001A Unspecified injury of muscle, fascia and tendon of abdomen, initial encounter; S39.011A Strain of muscle, fascia and tendon of abdomen, initial encounter; M76.02 Gluteal tendinitis, left hip; I10 Essential (primary) hypertension; E78.5 Hyperlipidemia, unspecified; Z87.891 Personal history of nicotine dependence; M19.90 Unspecified osteoarthritis, unspecified site; Z79.82 Long term (current) use of aspirin; Z79.51 Long term (current) use of inhaled steroids; Z79.899 Other long term (current) drug therapy
CPT/HCPCS: 71020; 74181; 80053; 84100; 85025; 94640; 94760; 96372; 96375; 96376

== ENCOUNTER 2017-08-08 11:56 | Inpatient (IN) | payer MEDICARE ==
[2017-08-08] MEDS ORDERED: ALBUTEROL NEBULIZED 2.5 MG/3 ML INHALATION STA (12:25)
[2017-08-08] MEDS ORDERED: IPRATROPIUM-ALBUTEROL 3 ML NEB INHALATION STA (12:25)
--- NOTE | 2017-08-08 12:36 | ED ---
General Adult HPI - General Chief complaint: Shortness of Breath Stated complaint: SOB Time Seen by Provider: 08/08/17 12:03 Source: patient, EMS, RN notes reviewed Mode of arrival: EMS Limitations: no limitations - History of Present Illness Initial comments: 81-year-old female history of COPD transferred from outside hospital for admission. Patient was found to have left lower lobe pneumonia with effusion. She was given antibiotics site Medrol and albuterol prior to transfer. Patient states she has had worsening productive cough and dyspnea for the past several days. She denies chest pain. Denies lower extremity pain or swelling. No abdominal pain nausea vomiting. - Related Data Home Medications Medication Instructions Recorded Confirmed Albuterol Sulfate [Proair Hfa] 1 puff INHALATION RT-BID 05/01/16 05/01/16 Aspirin [Adult Low Dose Aspirin EC] 81 mg PO DAILY 05/01/16 05/01/16 Budesonide/Formoterol Fumarate 2 puff INHALATION RT-BID 05/01/16 05/01/16 [Symbicort 80-4.5 Mcg Inhaler] Cyanocobalamin (Vitamin B-12) 1 tab PO DAILY 05/01/16 05/01/16 [Vitamin B12] Furosemide [Lasix] 20 mg PO DAILY 05/01/16 05/01/16 Lisinopril [Zestril] 20 mg PO DAILY 05/01/16 05/01/16 Multivitamin [Multivitamins Adult 1 tab PO DAILY 05/01/16 05/01/16 Gummies] Simvastatin [Zocor] 40 mg PO HS 05/01/16 05/01/16 Tiotropium 18 Mcg/Puff [Spiriva] 1 cap INHALATION RT-DAILY 05/01/16 05/01/16 Vits A,C,E/Lutein/Minerals 1 tab PO DAILY 05/01/16 05/01/16 [Ocuvite with Lutein Tablet] Previous Rx's Medication Instructions Recorded HYDROcodone/APAP 7.5-325MG [[place] 1 tab PO Q6HR PRN #50 tab 05/08/16 7.5-325] Morphine Sulfate ER [Ms Contin] 15 mg PO Q12HR #60 tablet 05/08/16 Allergies Allergy/AdvReac Type Severity Reaction Status Date / Time Sulfa (Sulfonamide Allergy Anaphylaxis Verified 08/08/17 12:10 Antibiotics) Review of Systems ROS Statement: Those systems with pertinent positive or pertinent negative responses have been documented in the HPI. ROS Other: All systems not noted in ROS Statement are negative. 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, renal mass History of Any Multi-Drug Resistant Organisms: None Reported Past Surgical History: Back Surgery Additional Past Surgical History / Comment(s): LAMINECTOMY, LEFT TOE SURGERY, ELBOW ON RIGHT, RIGHT CARPAL TUNNEL Past Anesthesia/Blood Transfusion Reactions: No Reported Reaction Past Psychological History: No Psychological Hx Reported Smoking Status: Never smoker Past Alcohol Use History: None Reported Past Drug Use History: None Reported - Past Family History Mother Additional Family Medical History / Comment(s): MOM PASSED FROM BLOOD CLOT Father Family Medical History: Dementia General Exam Limitations: no limitations General appearance: alert, in no apparent distress Head exam: Present: atraumatic, normocephalic Eye exam: Present: normal appearance, PERRL ENT exam: Present: normal exam Neck exam: Present: normal inspection. Absent: tenderness Respiratory exam: Present: respiratory distress, wheezes, rhonchi Cardiovascular Exam: Present: regular rate, normal rhythm GI/Abdominal exam: Present: soft. Absent: distended, tenderness, guarding Extremities exam: Present: normal inspection, normal capillary refill, pedal edema. Absent: calf tenderness Neurological exam: Present: alert, oriented X3, CN II-XII intact. Absent: motor sensory deficit Psychiatric exam: Present: normal affect, normal mood Skin exam: Present: warm, dry, intact. Absent: cyanosis, diaphoretic Course Vital Signs 08/08/17 12:04 Temperature 99.4 F Pulse Rate 104 H Respiratory 27 H Rate Blood Pressure 94/55 O2 Sat by Pulse 97 Oximetry Medical Decision Making - Medical Decision Making 81-year-old female with moderate respiratory distress secondary to pneumonia and COPD. Chest x-ray from outside hospital shows left infiltrate with effusion. She was given azithromycin, Rocephin and Solu-Medrol prior to transfer. Laboratory studies reveal a negative troponin, normal sodium and potassium. Creatinine is 2.0. White blood cell count elevated at 15.8, hemoglobin 10.1. Patient will be continued on BiPAP, given IV hydration, continued on treatment of COPD exacerbation and antibiotics. Dr. Ghosh is aware of this transfer. Disposition Clinical Impression: Community acquired pneumonia, Acute exacerbation of chronic obstructive airways disease Disposition: ADMITTED IP TO THIS [facility] Condition: Stable Is patient prescribed a controlled substance at discharge?: No Referrals: Nonstaff,Physician [Primary Care Provider] - 1-2 days Decision to Admit Reason: Admit from EC Decision Date: 08/08/17 Decision Time: 12:36
[2017-08-08] MEDS ORDERED: IPRATROPIUM-ALBUTEROL 3 ML NEB INHALATION PRN (13:14)
[2017-08-08] MEDS ORDERED: ALBUTEROL NEBULIZED 2.5 MG/3 ML INHALATION PRN (13:16)
--- NOTE | 2017-08-08 13:33 | XR ---
EXAMINATION TYPE: XR chest 1V portable DATE OF EXAM: 08/08/2017 COMPARISON: Prior chest x-ray May 05, 2016. Outside chest x-ray from earlier today. HISTORY: Shortness of breath TECHNIQUE: Single frontal view of the chest is obtained. FINDINGS: There is background chronic emphysematous change with new left midlung lateral opacity. Th ere are suspected small left greater than right bilateral pleural effusions on current study. The ca rdiac silhouette size remains mildly enlarged with atherosclerotic thoracic aorta. The osseous stru ctures remain demineralized. IMPRESSION: Chronic changes and mild cardiomegaly with new left greater than right small bilateral p leural effusions and new lateral left mid lung suspicious infiltrate. Advised progress two-view ches t x-ray.
--- NOTE | 2017-08-08 14:47 | P.HPIM ---
History of Present Illness Patient is a very pleasant 81-year-old female was transferred from outside hospital because of acute respiratory failure on BiPAP patient is found to have pneumonia patient does have the symptoms going on about 2-3 days unable to cough up anything patient is presently on BiPAP bilateral to provide much of the history patient used to smoke in the past. Patient is wheezing on exam patient is found to have left midlung infiltrate with bilateral pleural effusions. Unable to assess JVD I'll obtain a BNP patient has poor renal function with creatinine going up to 2 baseline creatinine around 1. Patient is on lisinopril and Lasix doesn't have any known history of CHF. Patient has wheezing on exam. Patient probably has pneumonia with the COPD exacerbation. Patient was started on IV fluids at 100 mL per hour. Since patient is an BiPAP will discuss with pulmonology and probably transfer her to ICU. Patient denied any recent hospitalizations patient can be treated like, today quite pneumonia with Rocephin and azithromycin. Review of Systems Unable to get much of the history patient denied any dysuria patient will to cough up anything since patient is at has BiPAP unable to get much of the history from the patient. 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, renal mass History of Any Multi-Drug Resistant Organisms: None Reported Past Surgical History: Back Surgery Additional Past Surgical History / Comment(s): LAMINECTOMY, LEFT TOE SURGERY, ELBOW ON RIGHT, RIGHT CARPAL TUNNEL Past Anesthesia/Blood Transfusion Reactions: No Reported Reaction Past Psychological History: No Psychological Hx Reported Smoking Status: Never smoker Past Alcohol Use History: None Reported Past Drug Use History: None Reported - Past Family History Mother Additional Family Medical History / Comment(s): MOM PASSED FROM BLOOD CLOT Father Family Medical History: Dementia Medications and Allergies Home Medications Medication Instructions Recorded Confirmed Type Aspirin [Adult Low Dose Aspirin EC] 81 mg PO DAILY 05/01/16 08/08/17 History Cyanocobalamin (Vitamin B-12) 1 tab PO DAILY 05/01/16 08/08/17 History [Vitamin B12] Furosemide [Lasix] 20 mg PO DAILY 05/01/16 08/08/17 History Lisinopril [Zestril] 20 mg PO DAILY 05/01/16 08/08/17 History Simvastatin [Zocor] 40 mg PO HS 05/01/16 08/08/17 History Vits A,C,E/Lutein/Minerals 1 tab PO DAILY 05/01/16 08/08/17 History [Ocuvite with Lutein Tablet] Budesonide-Formot 160-4.5 Mcg 2 puff INHALATION RT-BID 08/08/17 08/08/17 History [Symbicort 160-4.5 Mcg Inhaler] Montelukast [Singulair] 10 mg PO HS 08/08/17 08/08/17 History Allergies Allergy/AdvReac Type Severity Reaction Status Date / Time Sulfa (Sulfonamide Allergy Anaphylaxis Verified 08/08/17 13:40 Antibiotics) Physical Exam Vitals: Vital Signs Temp Pulse Resp BP Pulse Ox 08/08/17 13:12 98 48 H 187/134 95 08/08/17 12:48 98 08/08/17 12:33 98 28 H 08/08/17 12:04 99.4 F 104 H 27 H 94/55 97 Intake and Output 08/07/17 08/08/17 08/08/17 22:59 06:59 14:59 Other: Weight 75.296 kg PHYSICAL EXAMINATION: GENERAL: The patient is alert and oriented x3, patient is not on any respiratory distress on BiPAP HEENT: Pupils are round and equally reacting to light. EOMI. No scleral icterus. No conjunctival pallor. Normocephalic, atraumatic. No pharyngeal erythema. No thyromegaly. CARDIOVASCULAR: S1 and S2 present. No murmurs, rubs, or gallops. PULMONARY: Patient is on BiPAP expiratory wheezing on exam no cigarette in crackles were appreciated I am unable to appreciate JVD ABDOMEN: Soft, nontender, nondistended, normoactive bowel sounds. No palpable organomegaly. MUSCULOSKELETAL: No joint swelling or deformity. EXTREMITIES: No cyanosis, clubbing, or pedal edema. NEUROLOGICAL: Gross neurological examination did not reveal any focal deficits. SKIN: No rashes. Assessment and Plan Plan: Acute hypoxic and hypercapnic respiratory failure secondary to pneumonia and COPD exacerbation patient was started on Rocephin as the medicine patient is also on IV steroids which will be continued inhalational treatments. Patient is on BiPAP support. Patient will be admitted to ICU. -COPD with acute exacerbation -Hypertension hold off on lisinopril because of acute renal dysfunction patient baseline creatinine is around 1 now around 2 patient was started on IV fluids as of my suspicion is low that patient has CHF exacerbation we'll obtain a BNP as I'm unable to appreciate JVD or S3 -Hyperlipidemia -Osteoarthritis -Previous history of smoking
[2017-08-08] MEDS: SODIUM CHLORIDE 0.9% 1,000 ML IV SCH (15:04)
[2017-08-08 15:43] LABS: Glucose,Whole Blood 177 mg/dL (75-99)
[2017-08-08] MEDS ORDERED: cefTRIAXone IN SWFI 1,000 MG/10 ML SYRINGE IVP SCH (16:00)
[2017-08-08] MEDS ORDERED: AZITHROMYCIN 500 MG in SODIUM CHLORIDE 0.9% 250 ML IVPB SCH (16:00)
[2017-08-08] MEDS: IPRATROPIUM-ALBUTEROL 3 ML NEB INHALATION SCH ×2 (16:10→20:49)
[2017-08-08] MEDS ORDERED: NALOXONE 0.4 MG/ML 1 ML VIAL IV PRN (16:20)
[2017-08-08 16:58] LABS: Glucose,Whole Blood 193 mg/dL (75-99)
[2017-08-08] MEDS: INSULIN ASPART 100 UNIT/ML 1 ML 10 ML VIAL SQ SCH ×2 (17:04→21:28)
[2017-08-08] MEDS: methylPREDNISolone SOD SUCCI 40 MG/ML 1 ML VIAL IV SCH (17:04)
[2017-08-08] MEDS ORDERED: SODIUM CHLORIDE 0.9% 500 ML IV ONE ×2 (17:22→19:59)
--- NOTE | 2017-08-08 17:25 | P.CNPUL ---
History of Present Illness Consult date: 08/08/17 Reason for consult: dyspnea, COPD, pneumonia History of present illness: A 81-year-old female patient with known history of mild COPD with a baseline FEV1 of 82% of predicted, whereas been followed up in our office with Dr. Skinner. The patient is known to have hyperlipidemia and hypertension. The patient came into the hospital for increased shortness of breath. The patient was apparently having increased cough and dyspnea chest tightness and wheezing. She was found to have a pneumonia at [facility] and the patient got transferred to our hospital for further care. She was having considerable distress and she was placed on BiPAP for respiratory support and currently she is on BiPAP at a pressure of 12/5 cm of water with an FiO2 of 40%. She was is saturating in the order of 93%. She is hemodynamically stable. Her white cell count is at 15.8. Hemoglobin is at 10.1. Chest x-ray showed a left lower lobe pulmonary infiltrate along with small effusion in addition to chronic changes. The patient is alert and awake. The patient is following commands and answering questions appropriately. The patient has no chest pain. No pleurisy. No hemoptysis. She is currently on Rocephin and Zithromax. The patient has been given a course of Z-Luis on outpatient basis and she just finished a course of Z-Luis prior to her coming to the hospital. She is having frequent coughing spells. No significant sputum production. No drop in urine output. No edema in lower extremities. No altered mentation. No aspiration and she is able to swallow food without any major difficulties. Currently she is on high flow oxygen as she is having some soft diet at 10 L/m nasal cannula. Review of Systems Constitutional: Reports fatigue, Reports weakness Eyes: denies blurred vision, denies bulging eye, denies decreased vision Ears: deny: decreased hearing, ear discharge, earache, tinnitus Ears, nose, mouth and throat: Denies headache, Denies sore throat Breasts: absent: change in shape, gynecomastia, masses Cardiovascular: Reports decreased exercise tolerance, Reports dyspnea on exertion, Reports shortness of breath Respiratory: Reports cough, Reports dyspnea, Reports wheezing Gastrointestinal: Denies abdominal pain, Denies diarrhea, Denies nausea, Denies vomiting Genitourinary: Denies dysuria, Denies hematuria Menstruation: Reports as per HPI Musculoskeletal: Denies myalgias Musculoskeletal: absent: ankle pain, ankle stiffness, ankle swelling Integumentary: Denies pruritus, Denies rash Neurological: Denies numbness, Denies weakness Psychiatric: Reports as per HPI Endocrine: Reports as per HPI Hematologic/Lymphatic: Reports as per HPI Allergic/Immunologic: Reports as per HPI Past Medical History Past Medical History: Heart Failure, COPD, Hyperlipidemia, Hypertension, Osteoarthritis (OA), Pneumonia Additional Past Medical History / Comment(s): COPD there has been mild in severity with an FEV1 of 82%, closed head injury during childhood, osteoarthritis, hypertension, hyperlipidemia, rectus diathesis of the abdominal wall History of Any Multi-Drug Resistant Organisms: None Reported Past Surgical History: Back Surgery Additional Past Surgical History / Comment(s): neck sx-, LEFT TOE SURGERY, RIGHT CARPAL TUNNEL Past Anesthesia/Blood Transfusion Reactions: No Reported Reaction Smoking Status: Former smoker - Past Family History Mother Additional Family Medical History / Comment(s): MOM PASSED FROM BLOOD CLOT Father Family Medical History: Dementia Medications and Allergies Home Medications Medication Instructions Recorded Confirmed Type Aspirin [Adult Low Dose Aspirin EC] 81 mg PO DAILY 05/01/16 08/08/17 History Cyanocobalamin (Vitamin B-12) 1 tab PO DAILY 05/01/16 08/08/17 History [Vitamin B12] Furosemide [Lasix] 20 mg PO DAILY 05/01/16 08/08/17 History Lisinopril [Zestril] 20 mg PO DAILY 05/01/16 08/08/17 History Simvastatin [Zocor] 40 mg PO HS 05/01/16 08/08/17 History Vits A,C,E/Lutein/Minerals 1 tab PO DAILY 05/01/16 08/08/17 History [Ocuvite with Lutein Tablet] Budesonide-Formot 160-4.5 Mcg 2 puff INHALATION RT-BID 08/08/17 08/08/17 History [Symbicort 160-4.5 Mcg Inhaler] Montelukast [Singulair] 10 mg PO HS 08/08/17 08/08/17 History Allergies Allergy/AdvReac Type Severity Reaction Status Date / Time Sulfa (Sulfonamide Allergy Anaphylaxis Verified 08/08/17 13:40 Antibiotics) Physical Exam Vitals: Vital Signs Temp Pulse Resp BP Pulse Ox 08/08/17 16:10 87 08/08/17 15:19 98.5 F 42 L 42 H 105/51 96 08/08/17 14:48 95 20 80/47 96 08/08/17 13:12 98 48 H 187/134 95 08/08/17 12:48 98 08/08/17 12:33 98 28 H 08/08/17 12:04 99.4 F 104 H 27 H 94/55 97 Intake and Output 08/08/17 08/08/17 08/08/17 06:59 14:59 22:59 Other: Weight 75.296 kg GENERAL: The patient is alert and oriented x3, patient is not on any respiratory distress on BiPAP HEENT: Pupils are round and equally reacting to light. EOMI. No scleral icterus. No conjunctival pallor. Normocephalic, atraumatic. No pharyngeal erythema. No thyromegaly. CARDIOVASCULAR: S1 and S2 present. No murmurs, rubs, or gallops. PULMONARY: Patient is on BiPAP expiratory wheezing on exam no cigarette in crackles were appreciated on the left lung specially in the left mid and lower lung area. No significant wheezing. ABDOMEN: Soft, nontender, nondistended, normoactive bowel sounds. No palpable organomegaly. MUSCULOSKELETAL: No joint swelling or deformity. EXTREMITIES: No cyanosis, clubbing, or pedal edema. NEUROLOGICAL: Gross neurological examination did not reveal any focal deficits. SKIN: No rashes. Results - Laboratory Findings Abnormal lab findings: Abnormal Labs 08/08/17 15:40 POC Glucose (mg/dL) 177 H - Diagnostic Findings Chest x-ray: image reviewed Assessment and Plan Plan: Assessment 1 acute COPD exacerbation secondary to a left lung pneumonia. The patient has extensive left upper/lower, possible bilobar, pneumonia on today's chest x-ray. She has been treated on outpatient basis with a course of Zithromax without much benefit. 2 acute hypoxic respiratory failure secondary to above 3 acute BiPAP dependent respiratory failure 4 hypertension 5 hyperlipidemia 6 osteoarthritis Plan Broaden antibiotic coverage. Put the patient on a combination of Levaquin and Zosyn. Check blood culture. Check sputum Gram stain and culture. Continue using BiPAP and alternate this with high flow oxygen to maintain a saturation above 90%. Phenergan for cough 5 miles every 6-8 hours. Monitor fever pattern. Monitor white count. Continue DuoNeb nebulized 2 minutes on the clock. IV Solu Medrol 40 mg every 6 hours. Repeat chest x-ray in the morning. Heparin subcu for DVT prophylaxis. Normal state rate of 100 mL an hour. We' ll continue to follow make further recommendations based on her overall progress.
[2017-08-08] MEDS: PROMETHAZ-COD 6.25-10 MG/5 ML 5 ML CUP PO PRN (17:54)
[2017-08-08] MEDS ORDERED: LEVOFLOXACIN 750MG-D5W PMX 750 MG in DEXTROSE/WATER 1 150ML.BAG IVPB SCH (18:00)
[2017-08-08] MEDS ORDERED: methylPREDNISolone SOD SUCCI 125 MG/2 ML VIAL IV SCH (18:00)
[2017-08-08] MEDS: PIPERACILLIN-TAZOBACTAM 3.375 GM in DEXTROSE/WATER 1 50ML.BAG IVPB SCH (18:09)
[2017-08-08 19:55] LABS: Glucose,Whole Blood 221 mg/dL (75-99)
[2017-08-08] MEDS: SYMBICORT 160-4.5 MCG INHALER INHALATION SCH (20:49)
[2017-08-08] MEDS: LEVOFLOXACIN 750MG-D5W PMX 750 MG in DEXTROSE/WATER 1 150ML.BAG IVPB SCH (21:33)
[2017-08-08] MEDS: ATORVASTATIN 20 MG TAB PO SCH (21:33)
[2017-08-08] MEDS: BENZONATATE 100 MG CAP PO PRN (21:34)
[2017-08-09] MEDS: SODIUM CHLORIDE 0.9% 1,000 ML IV SCH ×2 (00:30→13:37)
[2017-08-09] MEDS: methylPREDNISolone SOD SUCCI 40 MG/ML 1 ML VIAL IV SCH ×4 (00:58→17:31)
[2017-08-09] MEDS: PIPERACILLIN-TAZOBACTAM 3.375 GM in DEXTROSE/WATER 1 50ML.BAG IVPB SCH ×3 (00:58→16:16)
[2017-08-09] MEDS: HEPARIN SODIUM,PORCINE 5,000 UNIT/ML 1 ML VIAL SQ SCH ×3 (00:58→16:16)
[2017-08-09] MEDS: PROMETHAZ-COD 6.25-10 MG/5 ML 5 ML CUP PO PRN ×3 (01:12→17:31)
[2017-08-09 04:44] LABS: Hemoglobin A1C 5.6 % (4.0-6.0)
[2017-08-09 04:44] LABS: Basophils % (A) 0 %; Eosinophils % (A) 0 %; HCT 27.8 % (34.0-46.0); HGB 9.2 gm/dL (11.4-16.0); Lymphocytes # (A) 0.6 k/uL (1.0-4.8); Lymphocytes % (A) 5 %; MCH 28.3 pg (25.0-35.0); MCV 85.8 fL (80.0-100.0); Mean Platelet Volume 7.3; Monocytes # (A) 0.5 k/uL (0-1.0); Monocytes % (A) 4 %; Neutrophils # (A) 10.5 k/uL (1.3-7.7); Neutrophils % (A) 90 %; Platelet Count 198 k/uL (150-450); RBC 3.24 m/uL (3.80-5.40); WBC 11.7 k/uL (3.8-10.6)
[2017-08-09 04:54] LABS: Calcium 8.8 mg/dL (8.4-10.2); Magnesium 2.9 mg/dL (1.6-2.3); Phosphorus 3.5 mg/dL (2.5-4.5); Potassium 4.7 mmol/L (3.5-5.1)
[2017-08-09 07:15] LABS: Glucose,Whole Blood 131 mg/dL (75-99)
[2017-08-09] MEDS: INSULIN ASPART 100 UNIT/ML 1 ML 10 ML VIAL SQ SCH ×4 (08:17→21:38)
[2017-08-09] MEDS: ASPIRIN 81 MG PO SCH (08:19)
[2017-08-09] MEDS: BENZOCAINE/MENTHOL LOZENG 1 EACH LOZENGE MUCOUS MEM PRN ×3 (08:19→16:12)
--- NOTE | 2017-08-09 08:22 | XR ---
EXAMINATION TYPE: XR chest 1V DATE OF EXAM: 08/09/2017 COMPARISON: 08/08/2017 HISTORY: Chest pain TECHNIQUE: Single frontal view of the chest is obtained. FINDINGS: Left midlung opacity, predominantly peripherally based and small left pleural effusion rem ain. The previously seen blunting of the right costophrenic angle has resolved. Background hyperinfla tion and pulmonary emphysematous changes are noted. Cardiac silhouette is enlarged. Diffuse osseous d emineralization is again noted. IMPRESSION: 1. Persistent left midlung opacity and small left pleural effusion that may represent either focal pn eumonia. Follow-up to resolution is recommended. 2. Resolution the previously seen trace right pleural effusion. 3. Background pulmonary emphysema.
[2017-08-09] MEDS: PANTOPRAZOLE 40 MG TABLET PO SCH (08:55)
[2017-08-09] MEDS: IPRATROPIUM-ALBUTEROL 3 ML NEB INHALATION SCH ×4 (09:43→20:20)
[2017-08-09] MEDS: SYMBICORT 160-4.5 MCG INHALER INHALATION SCH ×2 (09:49→20:33)
[2017-08-09 12:07] LABS: Glucose,Whole Blood 126 mg/dL (75-99)
[2017-08-09] MEDS: BENZONATATE 100 MG CAP PO PRN (13:58)
--- NOTE | 2017-08-09 16:00 | P.PN ---
Subjective 81-year-old pleasant female was admitted secondary to pneumonia left lower lobe and acute hypoxic and hypercapnic respiratory failure secondary to COPD exacerbation patient is feeling much better today patient on 4 L now still wheezing quite a bit. Patient is presently on Zosyn and levofloxacin. Patient feels much better. His cough coughing quite a bit. Constitutional: Denied any fatigue denied any fever. Cardio vascular: denied any chest pain, palpitations Gastrointestinal denied any nausea vomiting Pulmonary: As mentioned in HPI Neurologic denied any new focal deficits Objective - Vital Signs Vital signs: Vital Signs Temp 97.1 F L 08/09/17 12:00 Pulse 93 08/09/17 15:30 Resp 16 08/09/17 15:50 BP 109/62 08/09/17 15:30 Pulse Ox 97 08/09/17 15:30 Intake & Output 08/08/17 08/09/17 08/09/17 18:59 06:59 18:59 Intake Total 850 3320.0 900 Output Total 300 1575 550 Balance 550 1745.0 350 Weight 75.296 kg 81.2 kg Intake: IV 850 1700.0 900 Levofloxacin 750Mg-D5w 150 Pmx 750 mg In Dextrose/ Water 1 150ml.bag @ 100 mls/hr IVPB Q24H [facility] Rx#: [id number] Piperacillin-Tazobactam 3 50 50.0 .375 gm In Dextrose/Water 1 50ml.bag @ 12.5 mls/hr IVPB Q8HR [facility] Rx#: [id number] Sodium Chloride 0.9% 1, 800 1000 900 000 ml @ 100 mls/hr IV . Q10H [facility] Rx#:[id number] Sodium Chloride 0.9% 500 500 ml @ 999 mls/hr IV .Q31M [facility] Rx#:[id number] Oral 1620 Output: Urine 300 1575 550 - Exam PHYSICAL EXAMINATION: GENERAL: The patient is alert and oriented x3, is on 4 L of oxygen HEENT: Pupils are round and equally reacting to light. EOMI. No scleral icterus. No conjunctival pallor. Normocephalic, atraumatic. No pharyngeal erythema. No thyromegaly. CARDIOVASCULAR: S1 and S2 present. No murmurs, rubs, or gallops. PULMONARY: Significant expiratory wheezing was appreciated ABDOMEN: Soft, nontender, nondistended, normoactive bowel sounds. No palpable organomegaly. MUSCULOSKELETAL: No joint swelling or deformity. EXTREMITIES: No cyanosis, clubbing, or pedal edema. NEUROLOGICAL: Gross neurological examination did not reveal any focal deficits. SKIN: No rashes. - Labs CBC & Chem 7: 08/09/17 04:20 08/09/17 04:20 Labs: Abnormal Lab Results - Last 24 Hours (Table) 08/08/17 08/08/17 08/08/17 Range/Units 16:57 18:42 19:53 WBC (3.8-10.6) k/uL RBC (3.80-5.40) m/uL Hgb (11.4-16.0) gm/dL Hct (34.0-46.0) % Neutrophils # (1.3-7.7) k/uL Lymphocytes # (1.0-4.8) k/uL Chloride (98-107) mmol/L Carbon Dioxide (22-30) mmol/L BUN (7-17) mg/dL Creatinine (0.52-1.04) mg/dL Glucose (74-99) mg/dL POC Glucose (mg/dL) 193 H 221 H (75-99) mg/dL Plasma Lactic Acid Rashad 3.2 H* (0.7-2.0) mmol/L Magnesium (1.6-2.3) mg/dL 08/09/17 08/09/17 08/09/17 Range/Units 04:20 04:20 07:13 WBC 11.7 H (3.8-10.6) k/uL RBC 3.24 L (3.80-5.40) m/uL Hgb 9.2 L (11.4-16.0) gm/dL Hct 27.8 L (34.0-46.0) % Neutrophils # 10.5 H (1.3-7.7) k/uL Lymphocytes # 0.6 L (1.0-4.8) k/uL Chloride 110 H (98-107) mmol/L Carbon Dioxide 19 L (22-30) mmol/L BUN 32 H (7-17) mg/dL Creatinine 1.20 H (0.52-1.04) mg/dL Glucose 123 H (74-99) mg/dL POC Glucose (mg/dL) 131 H (75-99) mg/dL Plasma Lactic Acid Rashad (0.7-2.0) mmol/L Magnesium 2.9 H (1.6-2.3) mg/dL 08/09/17 Range/Units 12:05 WBC (3.8-10.6) k/uL RBC (3.80-5.40) m/uL Hgb (11.4-16.0) gm/dL Hct (34.0-46.0) % Neutrophils # (1.3-7.7) k/uL Lymphocytes # (1.0-4.8) k/uL Chloride (98-107) mmol/L Carbon Dioxide (22-30) mmol/L BUN (7-17) mg/dL Creatinine (0.52-1.04) mg/dL Glucose (74-99) mg/dL POC Glucose (mg/dL) 126 H (75-99) mg/dL Plasma Lactic Acid Rashad (0.7-2.0) mmol/L Magnesium (1.6-2.3) mg/dL Microbiology - Last 24 Hours (Table) 08/08/17 21:00 Gram Stain - Preliminary Sputum Sputum Culture - Preliminary Assessment and Plan Plan: Acute hypoxic and hypercapnic respiratory failure secondary to pneumonia and COPD exacerbation patient was started on Zosyn and levofloxacin patient is also on IV steroids which will be continued inhalational treatments. Patient is on BiPAP support. Patient will remain in ICU for today -COPD with acute exacerbation -Hypertension hold off on lisinopril because of acute renal dysfunction patient baseline creatinine is around 1 , creatinine improved with IV fluids now around 1.2 my suspicion is low that patient has CHF exacerbation . -Hyperlipidemia -Osteoarthritis -Previous history of smoking
[2017-08-09 17:11] LABS: Glucose,Whole Blood 172 mg/dL (75-99)
--- NOTE | 2017-08-09 18:50 | P.PN ---
Subjective Progress Note Date: 08/09/17 Principal diagnosis: Acute exacerbation of chronic obstructive pulmonary disease secondary to left lung pneumonia. A 81-year-old female patient with known history of mild COPD with a baseline FEV1 of 82% of predicted, whereas been followed up in our office with Dr. Skinner. The patient is known to have hyperlipidemia and hypertension. The patient came into the hospital for increased shortness of breath. The patient was apparently having increased cough and dyspnea chest tightness and wheezing. She was found to have a pneumonia at [facility] and the patient got transferred to our hospital for further care. She was having considerable distress and she was placed on BiPAP for respiratory support and currently she is on BiPAP at a pressure of 12/5 cm of water with an FiO2 of 40%. She was is saturating in the order of 93%. She is hemodynamically stable. Her white cell count is at 15.8. Hemoglobin is at 10.1. Chest x-ray showed a left lower lobe pulmonary infiltrate along with small effusion in addition to chronic changes. The patient is alert and awake. The patient is following commands and answering questions appropriately. The patient has no chest pain. No pleurisy. No hemoptysis. She is currently on Rocephin and Zithromax. The patient has been given a course of Z-Luis on outpatient basis and she just finished a course of Z-Luis prior to her coming to the hospital. She is having frequent coughing spells. No significant sputum production. No drop in urine output. No edema in lower extremities. No altered mentation. No aspiration and she is able to swallow food without any major difficulties. Currently she is on high flow oxygen as she is having some soft diet at 10 L/m nasal cannula. The patient is seen again today 08/09/2017 in follow-up in the intensive care unit. She is awake and alert in no acute distress. She states she is breathing easier today as compared to yesterday. She still has an ongoing dry nonproductive cough. She is currently off the BiPAP and maintaining good O2 saturations in the mid 90s on 6 L high flow nasal cannula. She is currently afebrile. Sputum cultures pending. White count 11.7. Hemoglobin 9.2. Creatinine 1.20. Bicarb 19. She remains on Zosyn and Levaquin. Bronchodilators and Symbicort. Phenergan With Codeine and Tessalon Perles. Objective - Vital Signs Vital signs: Vital Signs Temp 97.1 F L 08/09/17 12:00 Pulse 100 08/09/17 18:00 Resp 23 08/09/17 18:00 BP 127/63 08/09/17 18:00 Pulse Ox 95 08/09/17 18:00 Intake & Output 08/08/17 08/09/17 08/09/17 18:59 06:59 18:59 Intake Total 850 3320.0 1200 Output Total 300 1575 900 Balance 550 1745.0 300 Weight 75.296 kg 81.2 kg Intake: IV 850 1700.0 1200 Levofloxacin 750Mg-D5w 150 Pmx 750 mg In Dextrose/ Water 1 150ml.bag @ 100 mls/hr IVPB Q24H [facility] Rx#: [id number] Piperacillin-Tazobactam 3 50 50.0 .375 gm In Dextrose/Water 1 50ml.bag @ 12.5 mls/hr IVPB Q8HR [facility] Rx#: [id number] Sodium Chloride 0.9% 1, 800 1000 1200 000 ml @ 100 mls/hr IV . Q10H [facility] Rx#:[id number] Sodium Chloride 0.9% 500 500 ml @ 999 mls/hr IV .Q31M [facility] Rx#:[id number] Oral 1620 Output: Urine 300 1575 900 - Exam GENERAL: The patient is alert and oriented x3, patient is not on any respiratory distress on 6 L high flow nasal cannula HEENT: Pupils are round and equally reacting to light. EOMI. No scleral icterus. No conjunctival pallor. Normocephalic, atraumatic. No pharyngeal erythema. No thyromegaly. CARDIOVASCULAR: S1 and S2 present. No murmurs, rubs, or gallops. PULMONARY: Patient is on BiPAP expiratory wheezing on exam no cigarette in crackles were appreciated on the left lung specially in the left mid and lower lung area. No significant wheezing. ABDOMEN: Soft, nontender, nondistended, normoactive bowel sounds. No palpable organomegaly. MUSCULOSKELETAL: No joint swelling or deformity. EXTREMITIES: No cyanosis, clubbing, or pedal edema. NEUROLOGICAL: Gross neurological examination did not reveal any focal deficits. SKIN: No rashes. - Labs CBC & Chem 7: 08/09/17 04:20 08/09/17 04:20 Labs: Abnormal Lab Results - Last 24 Hours (Table) 08/08/17 08/08/17 08/09/17 Range/Units 18:42 19:53 04:20 WBC 11.7 H (3.8-10.6) k/uL RBC 3.24 L (3.80-5.40) m/uL Hgb 9.2 L (11.4-16.0) gm/dL Hct 27.8 L (34.0-46.0) % Neutrophils # 10.5 H (1.3-7.7) k/uL Lymphocytes # 0.6 L (1.0-4.8) k/uL Chloride (98-107) mmol/L Carbon Dioxide (22-30) mmol/L BUN (7-17) mg/dL Creatinine (0.52-1.04) mg/dL Glucose (74-99) mg/dL POC Glucose (mg/dL) 221 H (75-99) mg/dL Plasma Lactic Acid Rashad 3.2 H* (0.7-2.0) mmol/L Magnesium (1.6-2.3) mg/dL 08/09/17 08/09/17 08/09/17 Range/Units 04:20 07:13 12:05 WBC (3.8-10.6) k/uL RBC (3.80-5.40) m/uL Hgb (11.4-16.0) gm/dL Hct (34.0-46.0) % Neutrophils # (1.3-7.7) k/uL Lymphocytes # (1.0-4.8) k/uL Chloride 110 H (98-107) mmol/L Carbon Dioxide 19 L (22-30) mmol/L BUN 32 H (7-17) mg/dL Creatinine 1.20 H (0.52-1.04) mg/dL Glucose 123 H (74-99) mg/dL POC Glucose (mg/dL) 131 H 126 H (75-99) mg/dL Plasma Lactic Acid Rashad (0.7-2.0) mmol/L Magnesium 2.9 H (1.6-2.3) mg/dL 08/09/17 Range/Units 17:10 WBC (3.8-10.6) k/uL RBC (3.80-5.40) m/uL Hgb (11.4-16.0) gm/dL Hct (34.0-46.0) % Neutrophils # (1.3-7.7) k/uL Lymphocytes # (1.0-4.8) k/uL Chloride (98-107) mmol/L Carbon Dioxide (22-30) mmol/L BUN (7-17) mg/dL Creatinine (0.52-1.04) mg/dL Glucose (74-99) mg/dL POC Glucose (mg/dL) 172 H (75-99) mg/dL Plasma Lactic Acid Rashad (0.7-2.0) mmol/L Magnesium (1.6-2.3) mg/dL Microbiology - Last 24 Hours (Table) 08/08/17 21:00 Gram Stain - Preliminary Sputum Sputum Culture - Preliminary Assessment and Plan Assessment: Assessment 1 acute COPD exacerbation secondary to a left lung pneumonia. The patient has extensive left upper/lower, possible bilobar, pneumonia on today's chest x-ray. She has been treated on outpatient basis with a course of Zithromax without much benefit. Currently on Zosyn and Levaquin. 2 acute hypoxic respiratory failure secondary to above 3 acute BiPAP dependent respiratory failure 4 hypertension 5 hyperlipidemia 6 osteoarthritis Plan The patient was seen and evaluated by Dr. Nesbitt. We'll continue with her current antibiotics for now. Continue bronchodilators and Symbicort. Continue IV Solu-Medrol. She remains on Phenergan with codeine and Tessalon Perles for her cough. She is breathing easier today as compared to yesterday. Less time on BiPAP. She is on heparin subcutaneous for DVT prophylaxis. Protonix for GI prophylaxis. She can be transferred out of the intensive care unit today. We' ll continue to follow and make further recommendations based on her clinical status. I, the cosigning physician, performed a history & physical examination of the patient. Lungs sounds with bilateral end expiratory wheeze. Crackles in the left lung base.. Maintaining good O2 saturations in the 90s on 6 L/m per nasal cannula.. I discussed the assessment and plan of care with my nurse practitioner, Kiki Patel. I attest to the above note as dictated by her.
[2017-08-09 20:07] LABS: Glucose,Whole Blood 160 mg/dL (75-99)
[2017-08-09] MEDS ORDERED: BENZONATATE 100 MG CAP PO ONE (21:00)
[2017-08-09] MEDS ORDERED: ATORVASTATIN 20 MG TAB ONE (21:00)
[2017-08-09] MEDS: LEVOFLOXACIN 750MG-D5W PMX 750 MG in DEXTROSE/WATER 1 150ML.BAG IVPB SCH (21:46)
[2017-08-10] MEDS ORDERED: HEPARIN SODIUM,PORCINE 5,000 UNIT/ML 1 ML VIAL ONE
[2017-08-10] MEDS ORDERED: methylPREDNISolone SOD SUCCI 40 MG/ML 1 ML VIAL ONE
[2017-08-10 03:50] LABS: Magnesium 2.7 mg/dL (1.6-2.3); Phosphorus 3.1 mg/dL (2.5-4.5)
[2017-08-10 04:22] LABS: Basophils % (A) 0 %; Eosinophils % (A) 0 %; HCT 29.1 % (34.0-46.0)
[2017-08-10 04:26] LABS: HGB 9.4 gm/dL (11.4-16.0); Lymphocytes # (A) 0.6 k/uL (1.0-4.8); Lymphocytes % (A) 5 %; MCH 27.7 pg (25.0-35.0); MCHC 32.3 g/dL (31.0-37.0); MCV 85.7 fL (80.0-100.0); Mean Platelet Volume 7.1; Monocytes # (A) 0.4 k/uL (0-1.0); Monocytes % (A) 3 %; Neutrophils # (A) 12.2 k/uL (1.3-7.7); Neutrophils % (A) 91 %; Platelet Count 254 k/uL (150-450); RDW 13.9 % (11.5-15.5); WBC 13.4 k/uL (3.8-10.6)
[2017-08-10] MEDS: methylPREDNISolone SOD SUCCI 40 MG/ML 1 ML VIAL IV SCH ×5 (06:42→23:04)
[2017-08-10 07:19] LABS: Calcium 8.9 mg/dL (8.4-10.2)
[2017-08-10 07:35] LABS: Glucose,Whole Blood 132 mg/dL (75-99)
[2017-08-10] MEDS: IPRATROPIUM-ALBUTEROL 3 ML NEB INHALATION SCH ×4 (08:19→18:51)
[2017-08-10] MEDS: SYMBICORT 160-4.5 MCG INHALER INHALATION SCH ×2 (08:19→18:51)
[2017-08-10] MEDS: PIPERACILLIN-TAZOBACTAM 3.375 GM in DEXTROSE/WATER 1 50ML.BAG IVPB SCH ×4 (08:29→23:08)
[2017-08-10] MEDS: HEPARIN SODIUM,PORCINE 5,000 UNIT/ML 1 ML VIAL SQ SCH ×4 (08:30→23:04)
[2017-08-10] MEDS: INSULIN ASPART 100 UNIT/ML 1 ML 10 ML VIAL SQ SCH ×4 (08:30→20:28)
[2017-08-10] MEDS: ATORVASTATIN 20 MG TAB PO SCH ×2 (08:30→20:30)
--- NOTE | 2017-08-10 08:30 | XR ---
EXAMINATION TYPE: XR chest 1V DATE OF EXAM: 08/10/2017 COMPARISON: 08/09/2017 HISTORY: 81-year-old female with COPD exacerbation, bronchitis, pneumonia TECHNIQUE: Single frontal view of the chest is obtained. FINDINGS: Heart upper limits of normal in size. Atherosclerotic arch calcifications. Focal consolidation left m id lung persists. Also redemonstrated are the small left pleural effusion with adjacent left basilar opacity. Trace right effusion now seen. IMPRESSION: 1. Small left pleural effusion with adjacent atelectasis and/or consolidation. 2. Similar more extensive consolidation, probable pneumonia throughout the left mid lung. Follow-up a fter treatment to ensure clearance. 3. A trace right effusion is now seen.
[2017-08-10] MEDS: SODIUM CHLORIDE 0.9% 1,000 ML IV SCH ×3 (08:31→16:27)
[2017-08-10] MEDS: ASPIRIN 81 MG PO SCH (08:31)
[2017-08-10] MEDS: PANTOPRAZOLE 40 MG TABLET PO SCH (08:33)
[2017-08-10] MEDS: PROMETHAZ-COD 6.25-10 MG/5 ML 5 ML CUP PO PRN ×2 (08:37→13:57)
[2017-08-10 12:05] LABS: Glucose,Whole Blood 125 mg/dL (75-99)
[2017-08-10] MEDS: BENZOCAINE/MENTHOL LOZENG 1 EACH LOZENGE MUCOUS MEM PRN (14:20)
[2017-08-10 16:56] LABS: Glucose,Whole Blood 133 mg/dL (75-99)
--- NOTE | 2017-08-10 17:36 | P.PN ---
Subjective Progress Note Date: 08/10/17 A 81-year-old female patient with known history of mild COPD with a baseline FEV1 of 82% of predicted, whereas been followed up in our office with Dr. Skinner. The patient is known to have hyperlipidemia and hypertension. The patient came into the hospital for increased shortness of breath. The patient was apparently having increased cough and dyspnea chest tightness and wheezing. She was found to have a pneumonia at [facility] and the patient got transferred to our hospital for further care. She was having considerable distress and she was placed on BiPAP for respiratory support and currently she is on BiPAP at a pressure of 12/5 cm of water with an FiO2 of 40%. She was is saturating in the order of 93%. She is hemodynamically stable. Her white cell count is at 15.8. Hemoglobin is at 10.1. Chest x-ray showed a left lower lobe pulmonary infiltrate along with small effusion in addition to chronic changes. The patient is alert and awake. The patient is following commands and answering questions appropriately. The patient has no chest pain. No pleurisy. No hemoptysis. She is currently on Rocephin and Zithromax. The patient has been given a course of Z-Luis on outpatient basis and she just finished a course of Z-Luis prior to her coming to the hospital. She is having frequent coughing spells. No significant sputum production. No drop in urine output. No edema in lower extremities. No altered mentation. No aspiration and she is able to swallow food without any major difficulties. Currently she is on high flow oxygen as she is having some soft diet at 10 L/m nasal cannula. The patient is seen again today 08/09/2017 in follow-up in the intensive care unit. She is awake and alert in no acute distress. She states she is breathing easier today as compared to yesterday. She still has an ongoing dry nonproductive cough. She is currently off the BiPAP and maintaining good O2 saturations in the mid 90s on 6 L high flow nasal cannula. She is currently afebrile. Sputum cultures pending. White count 11.7. Hemoglobin 9.2. Creatinine 1.20. Bicarb 19. She remains on Zosyn and Levaquin. Bronchodilators and Symbicort. Phenergan With Codeine and Tessalon Perles. On today's evaluation of 08/10/2017, the patient is less short of breath. She is still having coughing episodes. Her oxidation is improved and she is currently down to 3 L of oxygen nasal cannula. However, the chest x-ray still showing a stable large consolidation of the left lung. I will give the patient another day of treatment with antibiotics and if abnormalities persist we'll proceed with a CAT scan of the chest. Otherwise, she has no specific complaints and she has no altered mentation. She'll be able to sit up on a chair today for us. She is hemodynamically stable on no pressors. No fever or chills. No other significant events over the past 24 hours. She has been resuscitated adequately and adequately with IV fluids. The antibiotic coverage remains a combination of Zosyn and Levaquin. All of the cultures of been negative thus far. Objective - Vital Signs Vital signs: Vital Signs Temp 98.6 F 08/10/17 16:00 Pulse 102 H 08/10/17 17:00 Resp 24 08/10/17 17:00 BP 133/92 08/10/17 17:00 Pulse Ox 97 08/10/17 17:00 Intake & Output 08/09/17 08/10/17 08/10/17 18:59 06:59 18:59 Intake Total 1200 1100 750.0 Output Total 688 314 6095 Balance 300 250 -851.0 Weight 88.5 kg Intake: IV 1200 1100 750.0 Piperacillin-Tazobactam 3 50.0 .375 gm In Dextrose/Water 1 50ml.bag @ 12.5 mls/hr IVPB Q8HR [facility] Rx#: [id number] Sodium Chloride 0.9% 1, 1200 1100 700 000 ml @ 100 mls/hr IV . Q10H [facility] Rx#:[id number] Output: Urine 150 346 [id number] Stool 1 Other: Voiding Method Bedside Commode # Voids 1 - Exam GENERAL: The patient is alert and oriented x3, patient is not on any respiratory distress on 6 L high flow nasal cannula HEENT: Pupils are round and equally reacting to light. EOMI. No scleral icterus. No conjunctival pallor. Normocephalic, atraumatic. No pharyngeal erythema. No thyromegaly. CARDIOVASCULAR: S1 and S2 present. No murmurs, rubs, or gallops. PULMONARY: Patient has scattered rhonchi and crackles are still present in the left lung compared to the right. Few scattered expiratory wheezes. Overall air entry is adequate bilaterally. ABDOMEN: Soft, nontender, nondistended, normoactive bowel sounds. No palpable organomegaly. MUSCULOSKELETAL: No joint swelling or deformity. EXTREMITIES: No cyanosis, clubbing, or pedal edema. NEUROLOGICAL: Gross neurological examination did not reveal any focal deficits. SKIN: No rashes. Examination of the skin revealed no evidence of significant rashes, suspicious appearing nevi or other concerning lesions. - Labs CBC & Chem 7: 08/10/17 03:05 08/10/17 03:05 Labs: Abnormal Lab Results - Last 24 Hours (Table) 08/09/17 08/10/17 08/10/17 Range/Units 20:04 03:05 03:05 WBC 13.4 H (3.8-10.6) k/uL RBC 3.40 L (3.80-5.40) m/uL Hgb 9.4 L (11.4-16.0) gm/dL Hct 29.1 L (34.0-46.0) % Neutrophils # 12.2 H (1.3-7.7) k/uL Lymphocytes # 0.6 L (1.0-4.8) k/uL Chloride (98-107) mmol/L Carbon Dioxide (22-30) mmol/L BUN (7-17) mg/dL Creatinine (0.52-1.04) mg/dL Glucose (74-99) mg/dL POC Glucose (mg/dL) 160 H (75-99) mg/dL Magnesium 2.7 H (1.6-2.3) mg/dL 08/10/17 08/10/17 08/10/17 Range/Units 03:05 07:33 12:03 WBC (3.8-10.6) k/uL RBC (3.80-5.40) m/uL Hgb (11.4-16.0) gm/dL Hct (34.0-46.0) % Neutrophils # (1.3-7.7) k/uL Lymphocytes # (1.0-4.8) k/uL Chloride 111 H (98-107) mmol/L Carbon Dioxide 18 L (22-30) mmol/L BUN 39 H (7-17) mg/dL Creatinine 1.26 H (0.52-1.04) mg/dL Glucose 123 H (74-99) mg/dL POC Glucose (mg/dL) 132 H 125 H (75-99) mg/dL Magnesium (1.6-2.3) mg/dL 08/10/17 Range/Units 16:54 WBC (3.8-10.6) k/uL RBC (3.80-5.40) m/uL Hgb (11.4-16.0) gm/dL Hct (34.0-46.0) % Neutrophils # (1.3-7.7) k/uL Lymphocytes # (1.0-4.8) k/uL Chloride (98-107) mmol/L Carbon Dioxide (22-30) mmol/L BUN (7-17) mg/dL Creatinine (0.52-1.04) mg/dL Glucose (74-99) mg/dL POC Glucose (mg/dL) 133 H (75-99) mg/dL Magnesium (1.6-2.3) mg/dL Microbiology - Last 24 Hours (Table) 08/08/17 18:42 Blood Culture - Preliminary Blood No Growth after 24 hours Assessment and Plan Plan: Assessment 1 acute COPD exacerbation secondary to a left lung pneumonia. The patient has extensive left upper/lower, possible bilobar, pneumonia on today's chest x-ray. The patient still has a dense consolidation of the left lung, however chronic issues improved and her oxidation is also improved where the patient is using only 3 L of oxygen nasal cannula. Overnight she still spend the night on BiPAP. She is clinically improving however. Cultures of been negative. She is on a combination of Zosyn and Levaquin. 2 acute hypoxic respiratory failure secondary to above, improving 3 acute BiPAP dependent respiratory failure, improving 4 hypertension 5 hyperlipidemia 6 osteoarthritis Plan Continue same antibiotic coverage and steroid treatment. Repeat chest x-ray in the morning. If the findings of the left lung are still the same, will need a CAT scan of the chest. We will continue utilizing the BiPAP on and off during the day and continuously at nighttime. Keep the oxygen at 3 L/m nasal cannula. Sit up on a chair. Increased level of activity as tolerated. We'll continue to follow.
--- NOTE | 2017-08-10 18:54 | P.PN ---
Subjective Progress Note Date: 08/10/17 Progress note being dictated for Dr. Sommers. Interval history:81-year-old pleasant female was admitted secondary to pneumonia left lower lobe and acute hypoxic and hypercapnic respiratory failure secondary to COPD exacerbation patient is feeling much better today patient on 4 L now still wheezing quite a bit. Patient is presently on Zosyn and levofloxacin. Patient feels much better. His cough coughing quite a bit. Constitutional: Denied any fatigue denied any fever. Cardio vascular: denied any chest pain, palpitations Gastrointestinal denied any nausea vomiting Pulmonary: As mentioned in HPI Neurologic denied any new focal deficits 08/10/2017 required BiPAP support during the night. Maintained on Zosyn and Levaquin. Cultures currently negative. Currently maintaining O2 sats of mid 90s on 3 L nasal cannula. Chest x-ray reporting smaller pleural effusion, adjacent atelectasis/consolidation, left midlung more extensive consolidation persists, probable pneumonia, trace right effusion. Shortness of breath improving, nonproductive cough. Review of systems: CONSTITUTIONAL: No fever, no malaise, fatigue. HEENT: No recent visual problems or hearing problems. Denied any sore throat. CARDIOVASCULAR: No chest pain, no palpitations, no syncope. PULMONARY: less shortness of breath, no cough, no hemoptysis. GASTROINTESTINAL: No diarrhea, no nausea, no vomiting, no abdominal pain. Normoactive bowel sounds. NEUROLOGICAL: No headaches, no weakness, no numbness. HEMATOLOGICAL: Denies any bleeding or petechiae. GENITOURINARY: Denies any burning micturition, frequency, or urgency. MUSCULOSKELETAL/RHEUMATOLOGICAL: Denies any joint pain, swelling, or any muscle pain. ENDOCRINE: Denies any polyuria or polydipsia. PSYCHIATRIC: No anxiety, no depression The rest of the 14 point review of systems is negative Active Medications Albuterol/Ipratropium (Duoneb 0.5 Mg-3 Mg/3 Ml Soln) 3 ml INHALATION RT-Q4H PRN PRN Reason: Shortness Of Breath Or Wheezing Albuterol/Ipratropium (Duoneb 0.5 Mg-3 Mg/3 Ml Soln) 3 ml INHALATION RT-QID [facility] Last Admin: 08/10/17 15:25 Dose: 3 ml Aspirin (Aspirin) 81 mg PO DAILY [facility] Last Admin: 08/10/17 08:31 Dose: 81 mg Atorvastatin Calcium (Lipitor) 20 mg PO HS [facility] Last Admin: 08/10/17 08:30 Dose: Not Given Benzocaine/Menthol (Cepacol Lozenge) 1 each MUCOUS MEM Q4HR PRN PRN Reason: Cough Last Admin: 08/10/17 14:20 Dose: 1 each Benzonatate (Tessalon Perles) 100 mg PO TID PRN PRN Reason: Cough Last Admin: 08/09/17 13:58 Dose: 100 mg Budesonide/Formoterol Fumarate (Symbicort 160-4.5 Mcg Inhaler) 2 puff INHALATION RT-BID [facility] Last Admin: 08/10/17 08:19 Dose: 2 puff Heparin Sodium (Porcine) (Heparin) 5,000 unit SQ Q8HR [facility] Last Admin: 08/10/17 16:26 Dose: 5,000 unit Sodium Chloride (Saline 0.9%) 1,000 mls @ 100 mls/hr IV .Q10H [facility] Last Admin: 08/10/17 16:27 Dose: 100 mls/hr Piperacillin/Tazobactam/ (Dextrose 3.375 gm/ IV Solution) 50 mls @ 12.5 mls/hr IVPB Q8HR [facility] Last Admin: 08/10/17 16:26 Dose: 12.5 mls/hr Levofloxacin 750 mg/ IV (Solution) 150 mls @ 100 mls/hr IVPB Q24H [facility] Last Admin: 08/09/17 21:46 Dose: 100 mls/hr Insulin Aspart (Novolog) 0 unit SQ ACHS [facility] PRN Reason: Protocol Last Admin: 08/10/17 17:09 Dose: 1 unit Methylprednisolone Sodium Succinate (Solu-Medrol) 40 mg IV Q6HR [facility] Last Admin: 08/10/17 17:09 Dose: 40 mg Naloxone HCl (Narcan) 0.2 mg IV Q2M PRN PRN Reason: Opioid Reversal Pantoprazole Sodium (Protonix) 40 mg PO AC-BRKFST [facility] Last Admin: 08/10/17 08:33 Dose: 40 mg Promethazine HCl/Codeine (Phenergan With Codeine) 5 ml PO Q6H PRN PRN Reason: Cold Symptoms Last Admin: 08/10/17 13:57 Dose: 5 ml Objective - Vital Signs Vital signs: Vital Signs Temp 98.6 F 04/18/18 16:00 Pulse 102 H 08/10/17 17:00 Resp 24 08/10/17 17:00 BP 133/92 08/10/17 17:00 Pulse Ox 97 08/10/17 17:00 Intake & Output 08/09/17 08/10/17 08/10/17 18:59 06:59 18:59 Intake Total 1200 1100 750.0 Output Total 993 389 1211 Balance 300 250 -851.0 Weight 88.5 kg Intake: IV 1200 1100 750.0 Piperacillin-Tazobactam 3 50.0 .375 gm In Dextrose/Water 1 50ml.bag @ 12.5 mls/hr IVPB Q8HR [facility] Rx#: [id number] Sodium Chloride 0.9% 1, 1200 1100 700 000 ml @ 100 mls/hr IV . Q10H [facility] Rx#:[id number] Output: Urine 248 [id number] [id number] Stool 1 Other: Voiding Method Bedside Commode # Voids 1 - Exam GENERAL: The patient is alert and oriented x3, is on 4 L of oxygen HEENT: Pupils are round and equally reacting to light. EOMI. No scleral icterus. No conjunctival pallor. Normocephalic, atraumatic. No pharyngeal erythema. No thyromegaly. CARDIOVASCULAR: S1 and S2 present. No murmurs, rubs, or gallops. PULMONARY: Bilateral bases diminished, left lung with scattered rhonchi, scattered crackles, less expiratory wheezing ABDOMEN: Soft, nontender, nondistended, normoactive bowel sounds. No palpable organomegaly. MUSCULOSKELETAL: No joint swelling or deformity. EXTREMITIES: No cyanosis, clubbing, or pedal edema. NEUROLOGICAL: Gross neurological examination did not reveal any focal deficits. SKIN: No rashes. - Labs CBC & Chem 7: 08/10/17 03:05 08/10/17 03:05 Labs: Abnormal Lab Results - Last 24 Hours (Table) 08/09/17 08/10/17 08/10/17 Range/Units 20:04 03:05 03:05 WBC 13.4 H (3.8-10.6) k/uL RBC 3.40 L (3.80-5.40) m/uL Hgb 9.4 L (11.4-16.0) gm/dL Hct 29.1 L (34.0-46.0) % Neutrophils # 12.2 H (1.3-7.7) k/uL Lymphocytes # 0.6 L (1.0-4.8) k/uL Chloride (98-107) mmol/L Carbon Dioxide (22-30) mmol/L BUN (7-17) mg/dL Creatinine (0.52-1.04) mg/dL Glucose (74-99) mg/dL POC Glucose (mg/dL) 160 H (75-99) mg/dL Magnesium 2.7 H (1.6-2.3) mg/dL 08/10/17 08/10/17 08/10/17 Range/Units 03:05 07:33 12:03 WBC (3.8-10.6) k/uL RBC (3.80-5.40) m/uL Hgb (11.4-16.0) gm/dL Hct (34.0-46.0) % Neutrophils # (1.3-7.7) k/uL Lymphocytes # (1.0-4.8) k/uL Chloride 111 H (98-107) mmol/L Carbon Dioxide 18 L (22-30) mmol/L BUN 39 H (7-17) mg/dL Creatinine 1.26 H (0.52-1.04) mg/dL Glucose 123 H (74-99) mg/dL POC Glucose (mg/dL) 132 H 125 H (75-99) mg/dL Magnesium (1.6-2.3) mg/dL 08/10/17 Range/Units 16:54 WBC (3.8-10.6) k/uL RBC (3.80-5.40) m/uL Hgb (11.4-16.0) gm/dL Hct (34.0-46.0) % Neutrophils # (1.3-7.7) k/uL Lymphocytes # (1.0-4.8) k/uL Chloride (98-107) mmol/L Carbon Dioxide (22-30) mmol/L BUN (7-17) mg/dL Creatinine (0.52-1.04) mg/dL Glucose (74-99) mg/dL POC Glucose (mg/dL) 133 H (75-99) mg/dL Magnesium (1.6-2.3) mg/dL Microbiology - Last 24 Hours (Table) 08/08/17 18:42 Blood Culture - Preliminary Blood No Growth after 24 hours Assessment and Plan Assessment: Acute hypoxic and hypercapnic respiratory failure secondary to pneumonia and COPD exacerbation -COPD with acute exacerbation -Hypertension hold off on lisinopril because of acute renal dysfunction patient baseline creatinine is around 1 , creatinine improved with IV fluids now around 1.2 my suspicion is low that patient has CHF exacerbation . -Hyperlipidemia -Osteoarthritis -Previous history of smoking Plan: Continue on current medication regime ,monitoring and symptomatic treatment.Patient will remain in ICU for today. Maintain IV antibiotics, nebulized bronchodilators, IV steroids, prn BiPAP support. Possible Chest CT as per pulmonary. Close monitoring of renal function with repeat labs ordered for a.m. smoking cessation addressed. The impression and plan of care has been dictated as directed. : I performed a history and examination of this patient, discussed the same with the dictator. I agree with the dictator's note ,documented as a scribe. Any additional findings or plans will be noted.
[2017-08-10 20:26] LABS: Glucose,Whole Blood 144 mg/dL (75-99)
[2017-08-10] MEDS: LEVOFLOXACIN 750MG-D5W PMX 750 MG in DEXTROSE/WATER 1 150ML.BAG IVPB SCH (20:37)
[2017-08-11] MEDS: SODIUM CHLORIDE 0.9% 1,000 ML IV SCH ×4 (02:57→16:59)
[2017-08-11] MEDS: PROMETHAZ-COD 6.25-10 MG/5 ML 5 ML CUP PO PRN ×3 (04:33→17:07)
[2017-08-11 04:46] LABS: Basophils % (A) 0 %; Eosinophils % (A) 0 %; Lymphocytes # (A) 0.9 k/uL (1.0-4.8); Lymphocytes % (A) 8 %; MCHC 31.3 g/dL (31.0-37.0); MCV 86.5 fL (80.0-100.0); Monocytes # (A) 0.6 k/uL (0-1.0); Monocytes % (A) 5 %; Neutrophils # (A) 9.1 k/uL (1.3-7.7); Neutrophils % (A) 85 %; Platelet Count 317 k/uL (150-450); RDW 14.1 % (11.5-15.5); WBC 10.7 k/uL (3.8-10.6)
[2017-08-11 04:57] LABS: Magnesium 2.4 mg/dL (1.6-2.3); Phosphorus 3.4 mg/dL (2.5-4.5); Potassium 4.9 mmol/L (3.5-5.1)
[2017-08-11] MEDS: methylPREDNISolone SOD SUCCI 40 MG/ML 1 ML VIAL IV SCH ×4 (05:02→23:46)
[2017-08-11] MEDS: SYMBICORT 160-4.5 MCG INHALER INHALATION SCH ×2 (07:20→19:20)
[2017-08-11] MEDS: IPRATROPIUM-ALBUTEROL 3 ML NEB INHALATION SCH ×4 (07:20→19:20)
[2017-08-11] MEDS: HEPARIN SODIUM,PORCINE 5,000 UNIT/ML 1 ML VIAL SQ SCH ×3 (07:38→23:46)
[2017-08-11] MEDS: PANTOPRAZOLE 40 MG TABLET PO SCH (07:38)
[2017-08-11] MEDS: BENZOCAINE/MENTHOL LOZENG 1 EACH LOZENGE MUCOUS MEM PRN ×3 (07:38→21:09)
[2017-08-11] MEDS: ASPIRIN 81 MG PO SCH (07:38)
[2017-08-11 07:39] LABS: Glucose,Whole Blood 106 mg/dL (75-99)
[2017-08-11] MEDS: INSULIN ASPART 100 UNIT/ML 1 ML 10 ML VIAL SQ SCH ×4 (07:54→20:34)
[2017-08-11] MEDS: PIPERACILLIN-TAZOBACTAM 3.375 GM in DEXTROSE/WATER 1 50ML.BAG IVPB SCH ×3 (08:12→23:46)
--- NOTE | 2017-08-11 08:43 | XR ---
EXAMINATION TYPE: XR chest 1V DATE OF EXAM: 08/11/2017 COMPARISON: 08/10/2017 INDICATION: Previous abnormal chest, bronchitis pneumonia COPD exacerbation TECHNIQUE: Single frontal view of the chest is obtained. FINDINGS: The heart size is upper limits of normal. The pulmonary vasculature is normal. There is density within the periphery of the left midlung. There is silhouetting left diaphragm. Mil d infiltrate such as atelectasis at the right base. IMPRESSION: 1. Persistent peripheral density left midlung. A pneumonia is within the differential. Underlying mas s is not excluded. This should be followed to clearing. 2. Silhouetting the left diaphragm. Some minimal atelectasis is also noted at the right base.
[2017-08-11] MEDS ORDERED: RX INFO: IV CONTRAST WAS GIVEN 1 EACH MISC MISCELLANE PRN (09:16)
[2017-08-11] MEDS ORDERED: FUROSEMIDE 10 MG/ML 4 ML VIAL IV STA (09:17)
--- NOTE | 2017-08-11 09:17 | P.PN ---
Subjective Progress Note Date: 08/11/17 A 81-year-old female patient with known history of mild COPD with a baseline FEV1 of 82% of predicted, whereas been followed up in our office with Dr. Skinner. The patient is known to have hyperlipidemia and hypertension. The patient came into the hospital for increased shortness of breath. The patient was apparently having increased cough and dyspnea chest tightness and wheezing. She was found to have a pneumonia at [facility] and the patient got transferred to our hospital for further care. She was having considerable distress and she was placed on BiPAP for respiratory support and currently she is on BiPAP at a pressure of 12/5 cm of water with an FiO2 of 40%. She was is saturating in the order of 93%. She is hemodynamically stable. Her white cell count is at 15.8. Hemoglobin is at 10.1. Chest x-ray showed a left lower lobe pulmonary infiltrate along with small effusion in addition to chronic changes. The patient is alert and awake. The patient is following commands and answering questions appropriately. The patient has no chest pain. No pleurisy. No hemoptysis. She is currently on Rocephin and Zithromax. The patient has been given a course of Z-Luis on outpatient basis and she just finished a course of Z-Luis prior to her coming to the hospital. She is having frequent coughing spells. No significant sputum production. No drop in urine output. No edema in lower extremities. No altered mentation. No aspiration and she is able to swallow food without any major difficulties. Currently she is on high flow oxygen as she is having some soft diet at 10 L/m nasal cannula. The patient is seen again today 08/09/2017 in follow-up in the intensive care unit. She is awake and alert in no acute distress. She states she is breathing easier today as compared to yesterday. She still has an ongoing dry nonproductive cough. She is currently off the BiPAP and maintaining good O2 saturations in the mid 90s on 6 L high flow nasal cannula. She is currently afebrile. Sputum cultures pending. White count 11.7. Hemoglobin 9.2. Creatinine 1.20. Bicarb 19. She remains on Zosyn and Levaquin. Bronchodilators and Symbicort. Phenergan With Codeine and Tessalon Perles. On today's evaluation of 08/10/2017, the patient is less short of breath. She is still having coughing episodes. Her oxidation is improved and she is currently down to 3 L of oxygen nasal cannula. However, the chest x-ray still showing a stable large consolidation of the left lung. I will give the patient another day of treatment with antibiotics and if abnormalities persist we'll proceed with a CAT scan of the chest. Otherwise, she has no specific complaints and she has no altered mentation. She'll be able to sit up on a chair today for us. She is hemodynamically stable on no pressors. No fever or chills. No other significant events over the past 24 hours. She has been resuscitated adequately and adequately with IV fluids. The antibiotic coverage remains a combination of Zosyn and Levaquin. All of the cultures of been negative thus far. On 08/11/2017, the patient is being seen for a follow-up. The patient is being cheered for pneumonia. The chest x-ray is unchanged and there is a masslike consolidation within the left lung. She is on a combination of Zosyn and Levaquin. I think she deserves a CAT scan of the chest to make sure there is no underlying mass. Meanwhile, the patient is still on the same antibiotic coverage at 3 L of oxygen by nasal cannula. She is having episodic cough without any hemoptysis. Chest is still congested and the patient is still having some bronchospasm wheezing still on IV Solu-Medrol 40 mg every 6 hours. She is also Phenergan With Codeine regarding her cough. No nausea. No vomiting no altered mentation. No other significant events over the past 24 hours. Cultures of been all negative. Objective - Vital Signs Vital signs: Vital Signs Temp 98.5 F 08/11/17 08:00 Pulse 97 08/11/17 08:00 Resp 31 H 08/11/17 08:00 BP 127/71 08/11/17 08:00 Pulse Ox 95 08/11/17 08:00 Intake & Output 08/10/17 08/11/17 08/11/17 18:59 06:59 18:59 Intake Total 775.0 712.5 12.5 Output Total 1851 400 300 Balance -1076.0 312.5 -287.5 Weight 82.2 kg Intake: IV 775.0 712.5 12.5 Levofloxacin 750Mg-D5w 150 Pmx 750 mg In Dextrose/ Water 1 150ml.bag @ 100 mls/hr IVPB Q24H [facility] Rx#: [id number] Piperacillin-Tazobactam 3 75.0 62.5 12.5 .375 gm In Dextrose/Water 1 50ml.bag @ 12.5 mls/hr IVPB Q8HR [facility] Rx#: [id number] Sodium Chloride 0.9% 1, 700 500 000 ml @ 100 mls/hr IV . Q10H [facility] Rx#:[id number] Output: Urine 1850 400 300 Stool 1 Other: Voiding Method Bedside Commode Bedside Commode # Voids 1 - Exam GENERAL: The patient is alert and oriented x3, patient is not on any respiratory distress on 6 L high flow nasal cannula HEENT: Pupils are round and equally reacting to light. EOMI. No scleral icterus. No conjunctival pallor. Normocephalic, atraumatic. No pharyngeal erythema. No thyromegaly. CARDIOVASCULAR: S1 and S2 present. No murmurs, rubs, or gallops. PULMONARY: Patient has scattered rhonchi and crackles are still present in the left lung compared to the right. Few scattered expiratory wheezes. Overall air entry is adequate bilaterally. ABDOMEN: Soft, nontender, nondistended, normoactive bowel sounds. No palpable organomegaly. MUSCULOSKELETAL: No joint swelling or deformity. EXTREMITIES: No cyanosis, clubbing, or pedal edema. NEUROLOGICAL: Gross neurological examination did not reveal any focal deficits. SKIN: No rashes. Examination of the skin revealed no evidence of significant rashes, suspicious appearing nevi or other concerning lesions. - Labs CBC & Chem 7: 08/11/17 04:23 08/11/17 04:23 Labs: Abnormal Lab Results - Last 24 Hours (Table) 08/10/17 08/10/17 08/10/17 Range/Units 12:03 16:54 20:24 WBC (3.8-10.6) k/uL RBC (3.80-5.40) m/uL Hgb (11.4-16.0) gm/dL Hct (34.0-46.0) % Neutrophils # (1.3-7.7) k/uL Lymphocytes # (1.0-4.8) k/uL Chloride (98-107) mmol/L Carbon Dioxide (22-30) mmol/L BUN (7-17) mg/dL Creatinine (0.52-1.04) mg/dL Glucose (74-99) mg/dL POC Glucose (mg/dL) 125 H 133 H 144 H (75-99) mg/dL Magnesium (1.6-2.3) mg/dL 08/11/17 08/11/17 08/11/17 Range/Units 04:23 04:23 07:36 WBC 10.7 H (3.8-10.6) k/uL RBC 3.70 L (3.80-5.40) m/uL Hgb 10.0 L (11.4-16.0) gm/dL Hct 32.0 L (34.0-46.0) % Neutrophils # 9.1 H (1.3-7.7) k/uL Lymphocytes # 0.9 L (1.0-4.8) k/uL Chloride 108 H (98-107) mmol/L Carbon Dioxide 19 L (22-30) mmol/L BUN 39 H (7-17) mg/dL Creatinine 1.10 H (0.52-1.04) mg/dL Glucose 104 H (74-99) mg/dL POC Glucose (mg/dL) 106 H (75-99) mg/dL Magnesium 2.4 H (1.6-2.3) mg/dL Microbiology - Last 24 Hours (Table) 08/08/17 18:42 Blood Culture - Preliminary Blood No Growth after 48 hours Assessment and Plan Plan: Assessment 1 acute COPD exacerbation secondary to a left lung pneumonia. T the patient was covered with broad-spectrum antibiotics with a combination of Zosyn and Levaquin. No major improvement of the chest x-ray finding and the patient has a masslike consolidation of the left lung. The patient clinically is improved. X-ray findings are still abnormal. We'll like to get a CAT scan of the chest to characterized abnormalities. 2 acute hypoxic respiratory failure secondary to above, improving 3 acute BiPAP dependent respiratory failure, improving, and the patient is currently off BiPAP on 3 L of oxygen nasal cannula 4 hypertension 5 hyperlipidemia 6 osteoarthritis Plan Proceed with a CAT scan of the chest. Kept on the IV fluids to KVO. Give the patient dose of Lasix 40 mg IV push. Continue Zosyn and Levaquin. Continue Phenergan with codeine for cough. May decide symptoms patient out of the intensive care unit depending on the CAT scan findings. We'll continue to follow. The patient is still on bronchodilators and systemic steroids. She is a bit bronchospastic and wheezy and will continue the same treatment.
--- NOTE | 2017-08-11 12:07 | CT ---
EXAMINATION TYPE: CT chest w con DATE OF EXAM: 08/11/2017 COMPARISON: Chest x-ray 08/11/2017 HISTORY: Patient complains of difficulty breathing. CT DLP: 471 mGycm, Automated exposure control for dose reduction was used. CONTRAST: Performed injected with 80 mL of Isovue 300. TECHNIQUE: Axial images were obtained at 5 mm thick sections. Reconstructed images are reviewed on Globial computer in the coronal plane. FINDINGS: There is some prominence of the right lobe thyroid wrapping around to near the esophagus an d posterior to the trachea. There are scattered groundglass opacities in the lungs. There is consolidation with air bronchograms within the lingula abutting the major fissure on the left. Consolidation is in the left lower lobe wh ich may be some compressive atelectasis adjacent to a small left pleural effusion. A small right pleu ral effusion is present. No enlarged mediastinal or hilar adenopathy is evident. Multiple scattered small shotty lymph nodes are present within the mediastinum. The ascending aorta diameter at the level of the main pulmonary artery is 3.4 cm. The main pulmonary artery diameter at the bifurcation is 3.[address] sections are obtained through the upper abdomen. Abdomen is essentially unremarkable. IMPRESSIONS: 1. Left midlung consolidation more suggestive for pneumonia. Follow-up to clearing is recommended. 2. Scattered groundglass opacities in the right upper lung field. 3. Small bilateral pleural effusions with some compressive atelectasis adjacent at the left lung base .
[2017-08-11 12:10] LABS: Glucose,Whole Blood 103 mg/dL (75-99)
[2017-08-11 16:59] LABS: Glucose,Whole Blood 99 mg/dL (75-99)
--- NOTE | 2017-08-11 17:30 | P.PN ---
Subjective Progress Note Date: 08/11/17 Progress note being dictated for Dr. Sommers. Interval history:81-year-old pleasant female was admitted secondary to pneumonia left lower lobe and acute hypoxic and hypercapnic respiratory failure secondary to COPD exacerbation patient is feeling much better today patient on 4 L now still wheezing quite a bit. Patient is presently on Zosyn and levofloxacin. Patient feels much better. His cough coughing quite a bit. Constitutional: Denied any fatigue denied any fever. Cardio vascular: denied any chest pain, palpitations Gastrointestinal denied any nausea vomiting Pulmonary: As mentioned in HPI Neurologic denied any new focal deficits 08/10/2017 required BiPAP support during the night. Maintained on Zosyn and Levaquin. Cultures currently negative. Currently maintaining O2 sats of mid 90s on 3 L nasal cannula. Chest x-ray reporting smaller pleural effusion, adjacent atelectasis/consolidation, left midlung more extensive consolidation persists, probable pneumonia, trace right effusion. Shortness of breath improving, nonproductive cough. Review of systems: CONSTITUTIONAL: No fever, no malaise, fatigue. HEENT: No recent visual problems or hearing problems. Denied any sore throat. CARDIOVASCULAR: No chest pain, no palpitations, no syncope. PULMONARY: less shortness of breath, no cough, no hemoptysis. GASTROINTESTINAL: No diarrhea, no nausea, no vomiting, no abdominal pain. Normoactive bowel sounds. NEUROLOGICAL: No headaches, no weakness, no numbness. HEMATOLOGICAL: Denies any bleeding or petechiae. GENITOURINARY: Denies any burning micturition, frequency, or urgency. MUSCULOSKELETAL/RHEUMATOLOGICAL: Denies any joint pain, swelling, or any muscle pain. ENDOCRINE: Denies any polyuria or polydipsia. PSYCHIATRIC: No anxiety, no depression The rest of the 14 point review of systems is negative Active Medications Albuterol/Ipratropium (Duoneb 0.5 Mg-3 Mg/3 Ml Soln) 3 ml INHALATION RT-Q4H PRN PRN Reason: Shortness Of Breath Or Wheezing Albuterol/Ipratropium (Duoneb 0.5 Mg-3 Mg/3 Ml Soln) 3 ml INHALATION RT-QID [facility] Last Admin: 08/10/17 15:25 Dose: 3 ml Aspirin (Aspirin) 81 mg PO DAILY [facility] Last Admin: 08/10/17 08:31 Dose: 81 mg Atorvastatin Calcium (Lipitor) 20 mg PO HS [facility] Last Admin: 08/10/17 08:30 Dose: Not Given Benzocaine/Menthol (Cepacol Lozenge) 1 each MUCOUS MEM Q4HR PRN PRN Reason: Cough Last Admin: 08/10/17 14:20 Dose: 1 each Benzonatate (Tessalon Perles) 100 mg PO TID PRN PRN Reason: Cough Last Admin: 08/09/17 13:58 Dose: 100 mg Budesonide/Formoterol Fumarate (Symbicort 160-4.5 Mcg Inhaler) 2 puff INHALATION RT-BID [facility] Last Admin: 08/10/17 08:19 Dose: 2 puff Heparin Sodium (Porcine) (Heparin) 5,000 unit SQ Q8HR [facility] Last Admin: 08/10/17 16:26 Dose: 5,000 unit Sodium Chloride (Saline 0.9%) 1,000 mls @ 100 mls/hr IV .Q10H [facility] Last Admin: 08/10/17 16:27 Dose: 100 mls/hr Piperacillin/Tazobactam/ (Dextrose 3.375 gm/ IV Solution) 50 mls @ 12.5 mls/hr IVPB Q8HR [facility] Last Admin: 08/10/17 16:26 Dose: 12.5 mls/hr Levofloxacin 750 mg/ IV (Solution) 150 mls @ 100 mls/hr IVPB Q24H [facility] Last Admin: 08/09/17 21:46 Dose: 100 mls/hr Insulin Aspart (Novolog) 0 unit SQ ACHS [facility] PRN Reason: Protocol Last Admin: 08/10/17 17:09 Dose: 1 unit Methylprednisolone Sodium Succinate (Solu-Medrol) 40 mg IV Q6HR [facility] Last Admin: 08/10/17 17:09 Dose: 40 mg Naloxone HCl (Narcan) 0.2 mg IV Q2M PRN PRN Reason: Opioid Reversal Pantoprazole Sodium (Protonix) 40 mg PO AC-BRKFST [facility] Last Admin: 08/10/17 08:33 Dose: 40 mg Promethazine HCl/Codeine (Phenergan With Codeine) 5 ml PO Q6H PRN PRN Reason: Cold Symptoms Last Admin: 08/10/17 13:57 Dose: 5 ml 08/11/2017 sitting up in chair, less congested productive cough. Nagel colored sputum. Maintained on Zosyn,Levaquin, steroids, nebulized bronchodilators. Wheezing improving. Chest x-ray unchanged reporting persistent left midlung focal consolidation, small left pleural effusion with adjacent left basilar opacity. Chest CT reporting left midlung consolidation suggestive of pneumonia , scattered groundglass opacity disease of the right upper lung field, small bilateral pleural effusions with some compressive atelectasis adjacent at the left lung base, ascending aorta 3.4 cm. renal function improving. Objective - Vital Signs Vital signs: Vital Signs Temp 98.4 F 08/11/17 12:00 Pulse 78 08/11/17 15:59 Resp 25 H 08/11/17 15:00 BP 129/58 08/11/17 15:00 Pulse Ox 97 08/11/17 15:43 Intake & Output 08/10/17 08/11/17 08/11/17 18:59 06:59 18:59 Intake Total 775.0 712.5 50.0 Output Total 1851 400 700 Balance -1076.0 312.5 -650.0 Weight 82.2 kg Intake: IV 775.0 712.5 50.0 Levofloxacin 750Mg-D5w 150 Pmx 750 mg In Dextrose/ Water 1 150ml.bag @ 100 mls/hr IVPB Q24H [facility] Rx#: [id number] Piperacillin-Tazobactam 3 75.0 62.5 50.0 .375 gm In Dextrose/Water 1 50ml.bag @ 12.5 mls/hr IVPB Q8HR [facility] Rx#: [id number] Sodium Chloride 0.9% 1, 700 500 000 ml @ 20 mls/hr IV . Q24H [facility] Rx#:[id number] Output: Urine 1850 400 700 Stool 1 Other: Voiding Method Bedside Commode Bedside Commode Bedside Commode # Voids 1 1 - Exam GENERAL: Sitting up in chair, alert and oriented x3, in no acute distress HEENT: Pupils are round and equally reacting to light. EOMI. No scleral icterus. No conjunctival pallor. Normocephalic, atraumatic. CARDIOVASCULAR: S1 and S2 present. No murmurs, rubs, or gallops. PULMONARY: Bilateral bases diminished, left lung with scattered rhonchi, scattered crackles, expiratory wheezing improving ABDOMEN: Soft, nontender, nondistended, normoactive bowel sounds. No palpable organomegaly. MUSCULOSKELETAL: No joint swelling or deformity. EXTREMITIES: No cyanosis, clubbing, or pedal edema. NEUROLOGICAL: Gross neurological examination did not reveal any focal deficits. SKIN: No rashes. - Labs CBC & Chem 7: 08/11/17 04:23 08/11/17 04:23 Labs: Abnormal Lab Results - Last 24 Hours (Table) 08/10/17 08/11/17 08/11/17 Range/Units 20:24 04:23 04:23 WBC 10.7 H (3.8-10.6) k/uL RBC 3.70 L (3.80-5.40) m/uL Hgb 10.0 L (11.4-16.0) gm/dL Hct 32.0 L (34.0-46.0) % Neutrophils # 9.1 H (1.3-7.7) k/uL Lymphocytes # 0.9 L (1.0-4.8) k/uL Chloride 108 H (98-107) mmol/L Carbon Dioxide 19 L (22-30) mmol/L BUN 39 H (7-17) mg/dL Creatinine 1.10 H (0.52-1.04) mg/dL Glucose 104 H (74-99) mg/dL POC Glucose (mg/dL) 144 H (75-99) mg/dL Magnesium 2.4 H (1.6-2.3) mg/dL 08/11/17 08/11/17 Range/Units 07:36 12:08 WBC (3.8-10.6) k/uL RBC (3.80-5.40) m/uL Hgb (11.4-16.0) gm/dL Hct (34.0-46.0) % Neutrophils # (1.3-7.7) k/uL Lymphocytes # (1.0-4.8) k/uL Chloride (98-107) mmol/L Carbon Dioxide (22-30) mmol/L BUN (7-17) mg/dL Creatinine (0.52-1.04) mg/dL Glucose (74-99) mg/dL POC Glucose (mg/dL) 106 H 103 H (75-99) mg/dL Magnesium (1.6-2.3) mg/dL Microbiology - Last 24 Hours (Table) 08/08/17 21:00 Gram Stain - Final Sputum Sputum Culture - Final 08/08/17 18:42 Blood Culture - Preliminary Blood No Growth after 48 hours Assessment and Plan Assessment: Acute hypoxic and hypercapnic respiratory failure secondary to pneumonia and COPD exacerbation -COPD with acute exacerbation -Hypertension hold off on lisinopril because of acute renal dysfunction patient baseline creatinine is around 1. my suspicion is low that patient has CHF exacerbation . -Hyperlipidemia -Osteoarthritis -Previous history of smoking Plan: Continue on current medication regime ,monitoring and symptomatic treatment.Maintain IV antibiotics, nebulized bronchodilators, IV steroids, prn BiPAP support. Close monitoring of renal function. smoking cessation addressed. Patient has been cleared for transfer out of ICU as per aircraft quality control inspector/pulmonary. The impression and plan of care has been dictated as directed. : I performed a history and examination of this patient, discussed the same with the dictator. I agree with the dictator's note ,documented as a scribe. Any additional findings or plans will be noted.
[2017-08-11] MEDS: ATORVASTATIN 20 MG TAB PO SCH (20:26)
[2017-08-11 20:33] LABS: Glucose,Whole Blood 145 mg/dL (75-99)
[2017-08-12 04:58] LABS: Basophils % (A) 0 %; Eosinophils % (A) 0 %; HCT 31.6 % (34.0-46.0); Lymphocytes # (A) 1.1 k/uL (1.0-4.8); Lymphocytes % (A) 12 %; MCH 27.3 pg (25.0-35.0); MCHC 31.7 g/dL (31.0-37.0); MCV 86.3 fL (80.0-100.0); Mean Platelet Volume 6.8; Monocytes # (A) 0.7 k/uL (0-1.0); Monocytes % (A) 7 %; Neutrophils # (A) 7.6 k/uL (1.3-7.7); Neutrophils % (A) 78 %; Platelet Count 357 k/uL (150-450); RBC 3.66 m/uL (3.80-5.40); RDW 14.4 % (11.5-15.5); WBC 9.7 k/uL (3.8-10.6)
[2017-08-12 05:20] LABS: Magnesium 2.3 mg/dL (1.6-2.3); Phosphorus 4.2 mg/dL (2.5-4.5)
[2017-08-12] MEDS: methylPREDNISolone SOD SUCCI 40 MG/ML 1 ML VIAL IV SCH (05:32)
[2017-08-12 05:39] LABS: Calcium 8.9 mg/dL (8.4-10.2); Potassium 5.3 mmol/L (3.5-5.1)
[2017-08-12 07:31] LABS: Glucose,Whole Blood 131 mg/dL (75-99)
[2017-08-12] MEDS: INSULIN ASPART 100 UNIT/ML 1 ML 10 ML VIAL SQ SCH ×4 (07:44→20:31)
--- NOTE | 2017-08-12 08:10 | XR ---
EXAMINATION TYPE: XR chest 1V DATE OF EXAM: 08/12/2017 HISTORY: Shortness of breath. COMPARISON: 08/11/2017 TECHNIQUE: Single view of the chest is submitted. FINDINGS: Demonstrated are scattered senescent parenchymal change. There is stable left basilar infiltrate. Improved aeration perihilar regions. Improved status of pulm onary vasculature. Small effusions present. The heart is stable. Hilar and mediastinal structures are within normal limits. Degenerative changes are seen of the dorsal spine. IMPRESSION: 1. Overall improvement noted with persistent left basilar infiltrate and/or atelectasis and small ef fusions.
[2017-08-12] MEDS: SYMBICORT 160-4.5 MCG INHALER INHALATION SCH ×2 (08:11→19:30)
[2017-08-12] MEDS: IPRATROPIUM-ALBUTEROL 3 ML NEB INHALATION SCH ×4 (08:11→19:33)
[2017-08-12] MEDS: HEPARIN SODIUM,PORCINE 5,000 UNIT/ML 1 ML VIAL SQ SCH ×2 (08:50→15:06)
[2017-08-12] MEDS: PANTOPRAZOLE 40 MG TABLET PO SCH (08:50)
[2017-08-12] MEDS: ASPIRIN 81 MG PO SCH (08:51)
[2017-08-12] MEDS: PIPERACILLIN-TAZOBACTAM 3.375 GM in DEXTROSE/WATER 1 50ML.BAG IVPB SCH ×2 (08:51→15:06)
[2017-08-12] MEDS ORDERED: LEVOFLOXACIN 750MG-D5W PMX 750 MG in DEXTROSE/WATER 1 150ML.BAG IVPB SCH (09:00)
[2017-08-12 12:23] LABS: Glucose,Whole Blood 97 mg/dL (75-99)
--- NOTE | 2017-08-12 13:42 | P.PN ---
Subjective Progress Note Date: 08/12/17 A 81-year-old female patient with known history of mild COPD with a baseline FEV1 of 82% of predicted, whereas been followed up in our office with Dr. Skinner. The patient is known to have hyperlipidemia and hypertension. The patient came into the hospital for increased shortness of breath. The patient was apparently having increased cough and dyspnea chest tightness and wheezing. She was found to have a pneumonia at [facility] and the patient got transferred to our hospital for further care. She was having considerable distress and she was placed on BiPAP for respiratory support and currently she is on BiPAP at a pressure of 12/5 cm of water with an FiO2 of 40%. She was is saturating in the order of 93%. She is hemodynamically stable. Her white cell count is at 15.8. Hemoglobin is at 10.1. Chest x-ray showed a left lower lobe pulmonary infiltrate along with small effusion in addition to chronic changes. The patient is alert and awake. The patient is following commands and answering questions appropriately. The patient has no chest pain. No pleurisy. No hemoptysis. She is currently on Rocephin and Zithromax. The patient has been given a course of Z-Luis on outpatient basis and she just finished a course of Z-Luis prior to her coming to the hospital. She is having frequent coughing spells. No significant sputum production. No drop in urine output. No edema in lower extremities. No altered mentation. No aspiration and she is able to swallow food without any major difficulties. Currently she is on high flow oxygen as she is having some soft diet at 10 L/m nasal cannula. The patient is seen again today 08/09/2017 in follow-up in the intensive care unit. She is awake and alert in no acute distress. She states she is breathing easier today as compared to yesterday. She still has an ongoing dry nonproductive cough. She is currently off the BiPAP and maintaining good O2 saturations in the mid 90s on 6 L high flow nasal cannula. She is currently afebrile. Sputum cultures pending. White count 11.7. Hemoglobin 9.2. Creatinine 1.20. Bicarb 19. She remains on Zosyn and Levaquin. Bronchodilators and Symbicort. Phenergan With Codeine and Tessalon Perles. On today's evaluation of 08/10/2017, the patient is less short of breath. She is still having coughing episodes. Her oxidation is improved and she is currently down to 3 L of oxygen nasal cannula. However, the chest x-ray still showing a stable large consolidation of the left lung. I will give the patient another day of treatment with antibiotics and if abnormalities persist we'll proceed with a CAT scan of the chest. Otherwise, she has no specific complaints and she has no altered mentation. She'll be able to sit up on a chair today for us. She is hemodynamically stable on no pressors. No fever or chills. No other significant events over the past 24 hours. She has been resuscitated adequately and adequately with IV fluids. The antibiotic coverage remains a combination of Zosyn and Levaquin. All of the cultures of been negative thus far. On 08/11/2017, the patient is being seen for a follow-up. The patient is being cheered for pneumonia. The chest x-ray is unchanged and there is a masslike consolidation within the left lung. She is on a combination of Zosyn and Levaquin. I think she deserves a CAT scan of the chest to make sure there is no underlying mass. Meanwhile, the patient is still on the same antibiotic coverage at 3 L of oxygen by nasal cannula. She is having episodic cough without any hemoptysis. Chest is still congested and the patient is still having some bronchospasm wheezing still on IV Solu-Medrol 40 mg every 6 hours. She is also Phenergan With Codeine regarding her cough. No nausea. No vomiting no altered mentation. No other significant events over the past 24 hours. Cultures of been all negative. On 08/13/2007 and I'm seeing this patient for a follow-up. Clinically the patient is improved. I repeated a chest x-ray today shows improvement in the left lung consolidation. This is of history and pneumonia and this finding was also confirmed by CAT scan of the chest. No fever. No chills. Cough has subsided. Less short of breath. No nausea or vomiting. Awake and alert and she has adequate mentation. He remains on examination of Zosyn and Levaquin. She is also on IV Solu-Medrol which are being gradually tapered off the prednisone burst taper. She is on Phenergan for codeine for cough and her IV fluids at KVO. Objective - Vital Signs Vital signs: Vital Signs Temp 98.5 F 08/12/17 08:00 Pulse 81 08/12/17 12:00 Resp 25 H 08/12/17 12:00 BP 109/76 08/12/17 12:00 Pulse Ox 98 08/12/17 12:00 Intake & Output 08/11/17 08/12/17 08/12/17 18:59 06:59 18:59 Intake Total 200.0 120 Output Total 1950 1100 1 Balance -1750.0 -980 -1 Weight 82.3 kg Intake: IV 200.0 120 Piperacillin-Tazobactam 3 100.0 .375 gm In Dextrose/Water 1 50ml.bag @ 12.5 mls/hr IVPB Q8HR [facility] Rx#: [id number] Sodium Chloride 0.9% 1, 100 120 000 ml @ 20 mls/hr IV . Q24H [facility] Rx#:[id number] Output: Urine 1950 1100 Stool 1 Other: Voiding Method Bedside Commode Bedside Commode Bedside Commode # Voids 1 # Bowel Movements 1 - Exam GENERAL: The patient is alert and oriented x3, patient is not on any respiratory distress on 6 L high flow nasal cannula HEENT: Pupils are round and equally reacting to light. EOMI. No scleral icterus. No conjunctival pallor. Normocephalic, atraumatic. No pharyngeal erythema. No thyromegaly. CARDIOVASCULAR: S1 and S2 present. No murmurs, rubs, or gallops. PULMONARY: Patient has scattered rhonchi and crackles are still present in the left lung compared to the right. Few scattered expiratory wheezes. Overall air entry is adequate bilaterally. ABDOMEN: Soft, nontender, nondistended, normoactive bowel sounds. No palpable organomegaly. MUSCULOSKELETAL: No joint swelling or deformity. EXTREMITIES: No cyanosis, clubbing, or pedal edema. NEUROLOGICAL: Gross neurological examination did not reveal any focal deficits. SKIN: No rashes. Examination of the skin revealed no evidence of significant rashes, suspicious appearing nevi or other concerning lesions. - Labs CBC & Chem 7: 08/12/17 04:23 08/12/17 04:23 Labs: Abnormal Lab Results - Last 24 Hours (Table) 08/11/17 08/12/17 08/12/17 Range/Units 20:28 04:23 04:23 RBC 3.66 L (3.80-5.40) m/uL Hgb 10.0 L (11.4-16.0) gm/dL Hct 31.6 L (34.0-46.0) % Potassium 5.3 H (3.5-5.1) mmol/L BUN 43 H (7-17) mg/dL Creatinine 1.27 H (0.52-1.04) mg/dL Glucose 122 H (74-99) mg/dL POC Glucose (mg/dL) 145 H (75-99) mg/dL 08/12/17 Range/Units 07:29 RBC (3.80-5.40) m/uL Hgb (11.4-16.0) gm/dL Hct (34.0-46.0) % Potassium (3.5-5.1) mmol/L BUN (7-17) mg/dL Creatinine (0.52-1.04) mg/dL Glucose (74-99) mg/dL POC Glucose (mg/dL) 131 H (75-99) mg/dL Microbiology - Last 24 Hours (Table) 08/08/17 18:42 Blood Culture - Preliminary Blood No Growth after 72 hours Assessment and Plan Plan: Assessment 1 acute COPD exacerbation secondary to a left lung pneumonia. T the patient was covered with broad-spectrum antibiotics with a combination of Zosyn and Levaquin. No major improvement of the chest x-ray finding and the patient has a masslike consolidation of the left lung. The patient clinically is improved. . The chest x-ray however is improving on today's evaluation and a CAT scan of the chest shows consolidation consistent with pneumonia and that is no indication for an underlying malignancy at this point 2 acute hypoxic respiratory failure secondary to above, improving 3 acute BiPAP dependent respiratory failure, improving, and the patient is currently off BiPAP on 3 L of oxygen nasal cannula 4 hypertension 5 hyperlipidemia 6 osteoarthritis Plan Transfer this patient out of the intensive care units. Continue the same antibiotic coverage. The patient is improving. Cough has subsided. She is afebrile. She is hemodynamically stable. Stopped IV Solu Medrol.. Prednisone burst taper and stop the IV Solu-Medrol. We'll continue to follow.
[2017-08-12] MEDS: SODIUM CHLORIDE 0.9% 1,000 ML IV SCH (15:04)
[2017-08-12 16:55] LABS: Glucose,Whole Blood 95 mg/dL (75-99)
[2017-08-12 20:32] LABS: Glucose,Whole Blood 126 mg/dL (75-99)
[2017-08-12] MEDS: ATORVASTATIN 20 MG TAB PO SCH (21:05)
--- NOTE | 2017-08-12 21:21 | P.PN ---
Subjective Progress Note Date: 08/12/17 Progress note being dictated for Dr. Sommers. Interval history:81-year-old pleasant female was admitted secondary to pneumonia left lower lobe and acute hypoxic and hypercapnic respiratory failure secondary to COPD exacerbation patient is feeling much better today patient on 4 L now still wheezing quite a bit. Patient is presently on Zosyn and levofloxacin. Patient feels much better. His cough coughing quite a bit. Constitutional: Denied any fatigue denied any fever. Cardio vascular: denied any chest pain, palpitations Gastrointestinal denied any nausea vomiting Pulmonary: As mentioned in HPI Neurologic denied any new focal deficits 08/10/2017 required BiPAP support during the night. Maintained on Zosyn and Levaquin. Cultures currently negative. Currently maintaining O2 sats of mid 90s on 3 L nasal cannula. Chest x-ray reporting smaller pleural effusion, adjacent atelectasis/consolidation, left midlung more extensive consolidation persists, probable pneumonia, trace right effusion. Shortness of breath improving, nonproductive cough. Review of systems: CONSTITUTIONAL: No fever, no malaise, fatigue. HEENT: No recent visual problems or hearing problems. Denied any sore throat. CARDIOVASCULAR: No chest pain, no palpitations, no syncope. PULMONARY: less shortness of breath, no cough, no hemoptysis. GASTROINTESTINAL: No diarrhea, no nausea, no vomiting, no abdominal pain. Normoactive bowel sounds. NEUROLOGICAL: No headaches, no weakness, no numbness. HEMATOLOGICAL: Denies any bleeding or petechiae. GENITOURINARY: Denies any burning micturition, frequency, or urgency. MUSCULOSKELETAL/RHEUMATOLOGICAL: Denies any joint pain, swelling, or any muscle pain. ENDOCRINE: Denies any polyuria or polydipsia. PSYCHIATRIC: No anxiety, no depression The rest of the 14 point review of systems is negative Active Medications Albuterol/Ipratropium (Duoneb 0.5 Mg-3 Mg/3 Ml Soln) 3 ml INHALATION RT-Q4H PRN PRN Reason: Shortness Of Breath Or Wheezing Albuterol/Ipratropium (Duoneb 0.5 Mg-3 Mg/3 Ml Soln) 3 ml INHALATION RT-QID [facility] Last Admin: 08/10/17 15:25 Dose: 3 ml Aspirin (Aspirin) 81 mg PO DAILY [facility] Last Admin: 08/10/17 08:31 Dose: 81 mg Atorvastatin Calcium (Lipitor) 20 mg PO HS [facility] Last Admin: 08/10/17 08:30 Dose: Not Given Benzocaine/Menthol (Cepacol Lozenge) 1 each MUCOUS MEM Q4HR PRN PRN Reason: Cough Last Admin: 08/10/17 14:20 Dose: 1 each Benzonatate (Tessalon Perles) 100 mg PO TID PRN PRN Reason: Cough Last Admin: 08/09/17 13:58 Dose: 100 mg Budesonide/Formoterol Fumarate (Symbicort 160-4.5 Mcg Inhaler) 2 puff INHALATION RT-BID [facility] Last Admin: 08/10/17 08:19 Dose: 2 puff Heparin Sodium (Porcine) (Heparin) 5,000 unit SQ Q8HR [facility] Last Admin: 08/10/17 16:26 Dose: 5,000 unit Sodium Chloride (Saline 0.9%) 1,000 mls @ 100 mls/hr IV .Q10H [facility] Last Admin: 08/10/17 16:27 Dose: 100 mls/hr Piperacillin/Tazobactam/ (Dextrose 3.375 gm/ IV Solution) 50 mls @ 12.5 mls/hr IVPB Q8HR [facility] Last Admin: 08/10/17 16:26 Dose: 12.5 mls/hr Levofloxacin 750 mg/ IV (Solution) 150 mls @ 100 mls/hr IVPB Q24H [facility] Last Admin: 08/09/17 21:46 Dose: 100 mls/hr Insulin Aspart (Novolog) 0 unit SQ ACHS [facility] PRN Reason: Protocol Last Admin: 08/10/17 17:09 Dose: 1 unit Methylprednisolone Sodium Succinate (Solu-Medrol) 40 mg IV Q6HR [facility] Last Admin: 08/10/17 17:09 Dose: 40 mg Naloxone HCl (Narcan) 0.2 mg IV Q2M PRN PRN Reason: Opioid Reversal Pantoprazole Sodium (Protonix) 40 mg PO AC-BRKFST [facility] Last Admin: 08/10/17 08:33 Dose: 40 mg Promethazine HCl/Codeine (Phenergan With Codeine) 5 ml PO Q6H PRN PRN Reason: Cold Symptoms Last Admin: 08/10/17 13:57 Dose: 5 ml 08/11/2017 sitting up in chair, less congested productive cough. Nagel colored sputum. Maintained on Zosyn,Levaquin, steroids, nebulized bronchodilators. Wheezing improving. Chest x-ray unchanged reporting persistent left midlung focal consolidation, small left pleural effusion with adjacent left basilar opacity. Chest CT reporting left midlung consolidation suggestive of pneumonia , scattered groundglass opacity disease of the right upper lung field, small bilateral pleural effusions with some compressive atelectasis adjacent at the left lung base, ascending aorta 3.4 cm. renal function improving. 08/12/2017 maintained on steroids, nebulized bronchodilators, Zosyn and Levaquin significant clinical improvement. Shortness of breath improving, cough subsided. Afebrile. Ambulating in the hallway, tolerating exertion well. Creatinine 1.27. currently being packed up for transfer out of ICU. Objective - Vital Signs Vital signs: Vital Signs Temp 98.1 F 08/12/17 16:00 Pulse 80 08/12/17 19:44 Resp 26 H 08/12/17 18:00 BP 115/61 08/12/17 17:00 Pulse Ox 97 08/12/17 19:34 Intake & Output 08/12/17 08/12/17 08/13/17 06:59 18:59 06:59 Intake Total 120 760 Output Total 1100 2 Balance -980 758 Weight 82.3 kg 82.3 kg Intake: IV 120 160 Sodium Chloride 0.9% 1, 120 160 000 ml @ 20 mls/hr IV . Q24H [facility] Rx#:[id number] Oral 600 Output: Urine 1100 Stool 2 Other: Voiding Method Bedside Commode Bedside Commode # Voids 3 # Bowel Movements 1 - Exam GENERAL: Sitting up in chair, alert and oriented x3, in no acute distress HEENT: Pupils are round and equally reacting to light. EOMI. No scleral icterus. No conjunctival pallor. Oral mucosa moist CARDIOVASCULAR: S1 and S2 present. No murmurs, rubs, or gallops. PULMONARY: Bilateral bases diminished, left lung with scattered rhonchi, scattered crackles, expiratory wheezing improving ABDOMEN: Soft, nontender, nondistended, normoactive bowel sounds. No palpable organomegaly. MUSCULOSKELETAL: No joint swelling or deformity. EXTREMITIES: No cyanosis, clubbing, or pedal edema. NEUROLOGICAL: Gross neurological examination did not reveal any focal deficits. SKIN: No rashes. - Labs CBC & Chem 7: 08/12/17 04:23 08/12/17 04:23 Labs: Abnormal Lab Results - Last 24 Hours (Table) 08/12/17 08/12/17 08/12/17 Range/Units 04:23 04:23 07:29 RBC 3.66 L (3.80-5.40) m/uL Hgb 10.0 L (11.4-16.0) gm/dL Hct 31.6 L (34.0-46.0) % Potassium 5.3 H (3.5-5.1) mmol/L BUN 43 H (7-17) mg/dL Creatinine 1.27 H (0.52-1.04) mg/dL Glucose 122 H (74-99) mg/dL POC Glucose (mg/dL) 131 H (75-99) mg/dL 08/12/17 Range/Units 20:30 RBC (3.80-5.40) m/uL Hgb (11.4-16.0) gm/dL Hct (34.0-46.0) % Potassium (3.5-5.1) mmol/L BUN (7-17) mg/dL Creatinine (0.52-1.04) mg/dL Glucose (74-99) mg/dL POC Glucose (mg/dL) 126 H (75-99) mg/dL Microbiology - Last 24 Hours (Table) 08/08/17 18:42 Blood Culture - Preliminary Blood No Growth after 96 hours Assessment and Plan Assessment: Acute hypoxic and hypercapnic respiratory failure secondary to pneumonia and COPD exacerbation -COPD with acute exacerbation -Hypertension hold off on lisinopril because of acute renal dysfunction patient baseline creatinine is around 1. my suspicion is low that patient has CHF exacerbation . -Hyperlipidemia -Osteoarthritis -Previous history of smoking Plan: Continue on current medication regime ,monitoring and symptomatic treatment.Maintain IV antibiotics, nebulized bronchodilators, IV steroids. Close monitoring of renal function. smoking cessation addressed. Transferring out of ICU as per information technology security analyst/pulmonary. The impression and plan of care has been dictated as directed. : I performed a history and examination of this patient, discussed the same with the dictator. I agree with the dictator's note ,documented as a scribe. Any additional findings or plans will be noted.
[2017-08-13] MEDS: PIPERACILLIN-TAZOBACTAM 3.375 GM in DEXTROSE/WATER 1 50ML.BAG IVPB SCH ×4 (00:22→23:30)
[2017-08-13] MEDS: HEPARIN SODIUM,PORCINE 5,000 UNIT/ML 1 ML VIAL SQ SCH ×4 (00:22→23:30)
--- NOTE | 2017-08-13 07:11 | XR ---
EXAMINATION TYPE: XR chest 1V DATE OF EXAM: 08/13/2017 HISTORY: COPD ex., PNM, bronchitis. REFERENCE: Previous study dated 08/12/2017. FINDINGS: There continues to be left basilar airspace disease. There is a left-sided effusion. There is underlying COPD. Heart size is obscured. IMPRESSION: 1. COPD. 2. LEFT BASILAR AIRSPACE DISEASE. 3. LEFT-SIDED EFFUSION.
[2017-08-13 07:27] LABS: Glucose,Whole Blood 73 mg/dL (75-99)
[2017-08-13] MEDS: IPRATROPIUM-ALBUTEROL 3 ML NEB INHALATION SCH ×4 (08:26→20:53)
[2017-08-13] MEDS: SYMBICORT 160-4.5 MCG INHALER INHALATION SCH ×2 (08:26→20:51)
[2017-08-13] MEDS: INSULIN ASPART 100 UNIT/ML 1 ML 10 ML VIAL SQ SCH ×4 (08:30→22:17)
[2017-08-13 08:42] LABS: Magnesium 2.1 mg/dL (1.6-2.3); Phosphorus 3.3 mg/dL (2.5-4.5)
[2017-08-13] MEDS: ASPIRIN 81 MG PO SCH (08:51)
[2017-08-13] MEDS: PANTOPRAZOLE 40 MG TABLET PO SCH (08:51)
[2017-08-13] MEDS: predniSONE 20 MG TAB PO SCH (08:53)
[2017-08-13 09:11] LABS: HCT 35.5 % (34.0-46.0); HGB 11.1 gm/dL (11.4-16.0); MCH 27.1 pg (25.0-35.0); MCHC 31.2 g/dL (31.0-37.0); MCV 86.7 fL (80.0-100.0); Mean Platelet Volume 6.8; Platelet Count 473 k/uL (150-450); RDW 14.5 % (11.5-15.5); WBC 13.8 k/uL (3.8-10.6)
[2017-08-13 10:55] LABS: Band Neutrophils % 1 %; Lymphocytes # (M) 3.45 k/uL (1.0-4.8); Metamyelocytes # (M) 0.28 k/uL (0); Metamyelocytes % 2 %; Myelocytes # (M) 0.28 k/uL (0); Myelocytes % 2 %; Neutrophils % (M) 62 %; Nucleated Red Blood Cells 0 /100 WBC (0-0); Total Cells Counted 100
[2017-08-13 10:57] LABS: Polychromasia Present
[2017-08-13 10:59] LABS: Poikilocytosis (M) Present
[2017-08-13 11:31] LABS: Glucose,Whole Blood 77 mg/dL (75-99)
[2017-08-13] MEDS: SODIUM CHLORIDE 0.9% 1,000 ML IV SCH (14:09)
--- NOTE | 2017-08-13 15:57 | PN ---
PROGRESS NOTE DATE OF SERVICE: 08/13/2017 This 81-year-old woman who was admitted with COPD, acute exacerbation, and acute hypoxic, hypercarbic respiratory failure is being closely monitored. No chest pain. No palpitations. No fever. On exam, alert and oriented x3. The pulse is 97, blood pressure 110/60, respirations 16, temperature 97.4, pulse ox 96% on room air. HEENT: Conjunctivae normal. NECK: No jugular venous distention. CARDIOVASCULAR SYSTEM: S1, S2 muffled. RESPIRATORY SYSTEM: Breath sounds diminished at the bases. Bilateral scattered rhonchi and crackles. ABDOMEN: Soft, non-tender. LEGS: No edema. No swelling. NERVOUS SYSTEM: No focal deficit. LABS: WBC 13.8. ASSESSMENT: 1. Chronic obstructive pulmonary disease, acute exacerbation, with acute hypoxic, hypercarbic respiratory failure. 2. Hypertension. 3. Hyperlipidemia. 4. Degenerative joint disease. 5. History of nicotine dependence. RECOMMENDATIONS AND DISCUSSION: I recommend to continue current medication, continue with symptomatic treatment. Otherwise, at this time I recommend monitoring creatinine closely. Continue the bronchodilators. Patient is on p.o. steroids. Continue the broad-spectrum IV antibiotics. Guarded prognosis. Further recommendations to follow. MMODL / IJN: [id number] /
--- NOTE | 2017-08-13 16:41 | P.PN ---
Subjective Progress Note Date: 08/13/17 A 81-year-old female patient with known history of mild COPD with a baseline FEV1 of 82% of predicted, whereas been followed up in our office with Dr. Skinner. The patient is known to have hyperlipidemia and hypertension. The patient came into the hospital for increased shortness of breath. The patient was apparently having increased cough and dyspnea chest tightness and wheezing. She was found to have a pneumonia at [facility] and the patient got transferred to our hospital for further care. She was having considerable distress and she was placed on BiPAP for respiratory support and currently she is on BiPAP at a pressure of 12/5 cm of water with an FiO2 of 40%. She was is saturating in the order of 93%. She is hemodynamically stable. Her white cell count is at 15.8. Hemoglobin is at 10.1. Chest x-ray showed a left lower lobe pulmonary infiltrate along with small effusion in addition to chronic changes. The patient is alert and awake. The patient is following commands and answering questions appropriately. The patient has no chest pain. No pleurisy. No hemoptysis. She is currently on Rocephin and Zithromax. The patient has been given a course of Z-Luis on outpatient basis and she just finished a course of Z-Luis prior to her coming to the hospital. She is having frequent coughing spells. No significant sputum production. No drop in urine output. No edema in lower extremities. No altered mentation. No aspiration and she is able to swallow food without any major difficulties. Currently she is on high flow oxygen as she is having some soft diet at 10 L/m nasal cannula. The patient is seen again today 08/09/2017 in follow-up in the intensive care unit. She is awake and alert in no acute distress. She states she is breathing easier today as compared to yesterday. She still has an ongoing dry nonproductive cough. She is currently off the BiPAP and maintaining good O2 saturations in the mid 90s on 6 L high flow nasal cannula. She is currently afebrile. Sputum cultures pending. White count 11.7. Hemoglobin 9.2. Creatinine 1.20. Bicarb 19. She remains on Zosyn and Levaquin. Bronchodilators and Symbicort. Phenergan With Codeine and Tessalon Perles. On today's evaluation of 08/10/2017, the patient is less short of breath. She is still having coughing episodes. Her oxidation is improved and she is currently down to 3 L of oxygen nasal cannula. However, the chest x-ray still showing a stable large consolidation of the left lung. I will give the patient another day of treatment with antibiotics and if abnormalities persist we'll proceed with a CAT scan of the chest. Otherwise, she has no specific complaints and she has no altered mentation. She'll be able to sit up on a chair today for us. She is hemodynamically stable on no pressors. No fever or chills. No other significant events over the past 24 hours. She has been resuscitated adequately and adequately with IV fluids. The antibiotic coverage remains a combination of Zosyn and Levaquin. All of the cultures of been negative thus far. On 08/11/2017, the patient is being seen for a follow-up. The patient is being cheered for pneumonia. The chest x-ray is unchanged and there is a masslike consolidation within the left lung. She is on a combination of Zosyn and Levaquin. I think she deserves a CAT scan of the chest to make sure there is no underlying mass. Meanwhile, the patient is still on the same antibiotic coverage at 3 L of oxygen by nasal cannula. She is having episodic cough without any hemoptysis. Chest is still congested and the patient is still having some bronchospasm wheezing still on IV Solu-Medrol 40 mg every 6 hours. She is also Phenergan With Codeine regarding her cough. No nausea. No vomiting no altered mentation. No other significant events over the past 24 hours. Cultures of been all negative. On 08/13/2007 and I'm seeing this patient for a follow-up. Clinically the patient is improved. I repeated a chest x-ray today shows improvement in the left lung consolidation. This is of history and pneumonia and this finding was also confirmed by CAT scan of the chest. No fever. No chills. Cough has subsided. Less short of breath. No nausea or vomiting. Awake and alert and she has adequate mentation. He remains on examination of Zosyn and Levaquin. She is also on IV Solu-Medrol which are being gradually tapered off the prednisone burst taper. She is on Phenergan for codeine for cough and her IV fluids at KVO. On 08/13/2017 the patient has no specific complaints. She is on the medical floor. She got moved out of the intensive care unit. Her pneumonia is improving and the patient's consolidation of the left upper lobe is improved compared to yesterday. Cultures of been all negative. She is afebrile. No hemoptysis. No pleurisy. She is on a prednisone burst taper. She remains on accommodation of Zosyn and Levaquin. She may need another 24-48 ordered hours treatments regarding her pneumonia. Her white cell count is not elevated for now. Her blood sugar is 77. Objective - Vital Signs Vital signs: Vital Signs Temp 97.8 F 08/13/17 13:56 Pulse 98 08/13/17 13:56 Resp 18 08/13/17 13:56 BP 112/55 08/13/17 13:56 Pulse Ox 94 L 08/13/17 13:56 Intake & Output 08/12/17 08/13/17 08/13/17 18:59 06:59 18:59 Intake Total 760 560 90 Output Total 2 401 1 Balance 758 159 89 Weight 82.3 kg 82.3 kg Intake: IV 160 80 90 Piperacillin-Tazobactam 3 50 .375 gm In Dextrose/Water 1 50ml.bag @ 12.5 mls/hr IVPB Q8HR [facility] Rx#: [id number] Sodium Chloride 0.9% 1, 160 80 40 000 ml @ 20 mls/hr IV . Q24H [facility] Rx#:[id number] Oral 600 480 Output: Urine 400 Stool 2 1 1 Other: Voiding Method Bedside Commode Bedside Commode Bedside Commode # Voids 3 4 # Bowel Movements 1 - Exam GENERAL: The patient is alert and oriented x3, patient is not on any respiratory distress on 6 L high flow nasal cannula HEENT: Pupils are round and equally reacting to light. EOMI. No scleral icterus. No conjunctival pallor. Normocephalic, atraumatic. No pharyngeal erythema. No thyromegaly. CARDIOVASCULAR: S1 and S2 present. No murmurs, rubs, or gallops. PULMONARY: Patient has scattered rhonchi and crackles are still present in the left lung compared to the right. Few scattered expiratory wheezes. Overall air entry is adequate bilaterally. ABDOMEN: Soft, nontender, nondistended, normoactive bowel sounds. No palpable organomegaly. MUSCULOSKELETAL: No joint swelling or deformity. EXTREMITIES: No cyanosis, clubbing, or pedal edema. NEUROLOGICAL: Gross neurological examination did not reveal any focal deficits. SKIN: No rashes. Examination of the skin revealed no evidence of significant rashes, suspicious appearing nevi or other concerning lesions. - Labs CBC & Chem 7: 08/13/17 07:24 08/12/17 04:23 Labs: Abnormal Lab Results - Last 24 Hours (Table) 08/12/17 08/13/17 08/13/17 Range/Units 20:30 07:22 07:24 WBC 13.8 H (3.8-10.6) k/uL Hgb 11.1 L (11.4-16.0) gm/dL Plt Count 473 H (150-450) k/uL Neutrophils # (Manual) 8.60 H (1.3-7.7) k/uL Monocytes # (Manual) 1.10 H (0-1.0) k/uL Metamyelocytes # (Man) 0.28 H (0) k/uL Myelocytes # (Manual) 0.28 H (0) k/uL POC Glucose (mg/dL) 126 H 73 L (75-99) mg/dL Microbiology - Last 24 Hours (Table) 08/08/17 18:42 Blood Culture - Preliminary Blood No Growth after 96 hours Assessment and Plan Plan: Assessment 1 acute COPD exacerbation secondary to a left lung pneumonia. The patient is improving. The left lung consolidation also improving and the patient has developed a small effusion on the left 2 acute hypoxic respiratory failure secondary to above, improving 3 acute BiPAP dependent respiratory failure, improving, and the patient is currently off BiPAP on 3 L of oxygen nasal cannula 4 hypertension 5 hyperlipidemia 6 osteoarthritis 7 chronic renal failure with a GFR of 40. Plan Continue same treatment. Increased level of activity as tolerated. Wean down the FiO2. Phenergan for cough. Prednisone burst taper. Zosyn and Levaquin as empiric antibiotic coverage. We'll continue to follow.
[2017-08-13 17:40] LABS: Glucose,Whole Blood 106 mg/dL (75-99)
[2017-08-13] MEDS: BENZOCAINE/MENTHOL LOZENG 1 EACH LOZENGE MUCOUS MEM PRN (17:55)
[2017-08-13] MEDS: BENZONATATE 100 MG CAP PO PRN (17:56)
[2017-08-13] MEDS: MONTELUKAST 10 MG TAB PO SCH (21:02)
[2017-08-13] MEDS: ATORVASTATIN 20 MG TAB PO SCH (21:02)
[2017-08-14] MEDS: IPRATROPIUM-ALBUTEROL 3 ML NEB INHALATION SCH ×4 (07:08→19:53)
[2017-08-14] MEDS: SYMBICORT 160-4.5 MCG INHALER INHALATION SCH ×2 (07:08→19:54)
[2017-08-14 07:25] LABS: Glucose,Whole Blood 67 mg/dL (75-99)
[2017-08-14 07:38] LABS: Glucose,Whole Blood 82 mg/dL (75-99)
[2017-08-14 07:55] LABS: HCT 33.5 % (34.0-46.0); HGB 10.9 gm/dL (11.4-16.0); MCH 27.9 pg (25.0-35.0); MCHC 32.4 g/dL (31.0-37.0); Mean Platelet Volume 6.4; Platelet Count 447 k/uL (150-450); RDW 14.8 % (11.5-15.5); WBC 12.6 k/uL (3.8-10.6)
[2017-08-14 07:58] LABS: Calcium 8.9 mg/dL (8.4-10.2); Potassium 4.4 mmol/L (3.5-5.1)
[2017-08-14] MEDS: INSULIN ASPART 100 UNIT/ML 1 ML 10 ML VIAL SQ SCH ×4 (08:10→21:09)
[2017-08-14] MEDS: PIPERACILLIN-TAZOBACTAM 3.375 GM in DEXTROSE/WATER 1 50ML.BAG IVPB SCH ×3 (08:14→23:59)
[2017-08-14] MEDS: CYANOCOBALAMIN 500 MCG TAB PO SCH (08:14)
[2017-08-14] MEDS: LISINOPRIL 20 MG TAB PO SCH (08:15)
[2017-08-14] MEDS: VIT A,C & E-LUTEIN-MINERALS 1 EACH TAB PO SCH (08:15)
[2017-08-14] MEDS: predniSONE 20 MG TAB PO SCH (08:15)
[2017-08-14] MEDS: FUROSEMIDE 20 MG TAB PO SCH (08:16)
[2017-08-14] MEDS: ASPIRIN 81 MG PO SCH (08:16)
[2017-08-14] MEDS: PANTOPRAZOLE 40 MG TABLET PO SCH (08:17)
[2017-08-14] MEDS: HEPARIN SODIUM,PORCINE 5,000 UNIT/ML 1 ML VIAL SQ SCH ×2 (08:17→17:22)
[2017-08-14 08:26] LABS: Band Neutrophils % 4 %; Eosinophils # (M) 0.38 k/uL (0-0.7); Metamyelocytes # (M) 0.88 k/uL (0); Metamyelocytes % 7 %; Monocytes # (M) 0.63 k/uL (0-1.0); Myelocytes # (M) 0.25 k/uL (0); Myelocytes % 2 %; Neutrophils % (M) 55 %; Nucleated Red Blood Cells 0 /100 WBC (0-0); Polychromasia Present; Total Cells Counted 200
[2017-08-14] MEDS ORDERED: LEVOFLOXACIN 750 MG TAB PO SCH (09:00)
[2017-08-14 11:44] LABS: Glucose,Whole Blood 103 mg/dL (75-99)
[2017-08-14] MEDS: SODIUM CHLORIDE 0.9% 1,000 ML IV SCH (13:00)
--- NOTE | 2017-08-14 14:08 | P.PN ---
Subjective Progress Note Date: 08/14/17 A 81-year-old female patient with known history of mild COPD with a baseline FEV1 of 82% of predicted, whereas been followed up in our office with Dr. Skinner. The patient is known to have hyperlipidemia and hypertension. The patient came into the hospital for increased shortness of breath. The patient was apparently having increased cough and dyspnea chest tightness and wheezing. She was found to have a pneumonia at [facility] and the patient got transferred to our hospital for further care. She was having considerable distress and she was placed on BiPAP for respiratory support and currently she is on BiPAP at a pressure of 12/5 cm of water with an FiO2 of 40%. She was is saturating in the order of 93%. She is hemodynamically stable. Her white cell count is at 15.8. Hemoglobin is at 10.1. Chest x-ray showed a left lower lobe pulmonary infiltrate along with small effusion in addition to chronic changes. The patient is alert and awake. The patient is following commands and answering questions appropriately. The patient has no chest pain. No pleurisy. No hemoptysis. She is currently on Rocephin and Zithromax. The patient has been given a course of Z-Luis on outpatient basis and she just finished a course of Z-Luis prior to her coming to the hospital. She is having frequent coughing spells. No significant sputum production. No drop in urine output. No edema in lower extremities. No altered mentation. No aspiration and she is able to swallow food without any major difficulties. Currently she is on high flow oxygen as she is having some soft diet at 10 L/m nasal cannula. The patient is seen again today 08/09/2017 in follow-up in the intensive care unit. She is awake and alert in no acute distress. She states she is breathing easier today as compared to yesterday. She still has an ongoing dry nonproductive cough. She is currently off the BiPAP and maintaining good O2 saturations in the mid 90s on 6 L high flow nasal cannula. She is currently afebrile. Sputum cultures pending. White count 11.7. Hemoglobin 9.2. Creatinine 1.20. Bicarb 19. She remains on Zosyn and Levaquin. Bronchodilators and Symbicort. Phenergan With Codeine and Tessalon Perles. On today's evaluation of 08/10/2017, the patient is less short of breath. She is still having coughing episodes. Her oxidation is improved and she is currently down to 3 L of oxygen nasal cannula. However, the chest x-ray still showing a stable large consolidation of the left lung. I will give the patient another day of treatment with antibiotics and if abnormalities persist we'll proceed with a CAT scan of the chest. Otherwise, she has no specific complaints and she has no altered mentation. She'll be able to sit up on a chair today for us. She is hemodynamically stable on no pressors. No fever or chills. No other significant events over the past 24 hours. She has been resuscitated adequately and adequately with IV fluids. The antibiotic coverage remains a combination of Zosyn and Levaquin. All of the cultures of been negative thus far. On 08/11/2017, the patient is being seen for a follow-up. The patient is being cheered for pneumonia. The chest x-ray is unchanged and there is a masslike consolidation within the left lung. She is on a combination of Zosyn and Levaquin. I think she deserves a CAT scan of the chest to make sure there is no underlying mass. Meanwhile, the patient is still on the same antibiotic coverage at 3 L of oxygen by nasal cannula. She is having episodic cough without any hemoptysis. Chest is still congested and the patient is still having some bronchospasm wheezing still on IV Solu-Medrol 40 mg every 6 hours. She is also Phenergan With Codeine regarding her cough. No nausea. No vomiting no altered mentation. No other significant events over the past 24 hours. Cultures of been all negative. On 08/13/2007 and I'm seeing this patient for a follow-up. Clinically the patient is improved. I repeated a chest x-ray today shows improvement in the left lung consolidation. This is of history and pneumonia and this finding was also confirmed by CAT scan of the chest. No fever. No chills. Cough has subsided. Less short of breath. No nausea or vomiting. Awake and alert and she has adequate mentation. He remains on examination of Zosyn and Levaquin. She is also on IV Solu-Medrol which are being gradually tapered off the prednisone burst taper. She is on Phenergan for codeine for cough and her IV fluids at KVO. On 08/13/2017 the patient has no specific complaints. She is on the medical floor. She got moved out of the intensive care unit. Her pneumonia is improving and the patient's consolidation of the left upper lobe is improved compared to yesterday. Cultures of been all negative. She is afebrile. No hemoptysis. No pleurisy. She is on a prednisone burst taper. She remains on accommodation of Zosyn and Levaquin. She may need another 24-48 ordered hours treatments regarding her pneumonia. Her white cell count is not elevated for now. Her blood sugar is 77. On 08/12/2017, the patient is doing extremely well. She is off oxygen. No respiratory difficulties. No chest pain. No hemoptysis or pleurisy. White cell count at 12.6. Communicating. Still on a combination of Zosyn and Levaquin and prednisone burst taper. No other significant events over the past 24 hours. She is active. No altered mentation. We're probably looking for discharging this patient with the next 24 hours. Objective - Vital Signs Vital signs: Vital Signs Temp 97.6 F 08/14/17 06:40 Pulse 84 08/14/17 11:15 Resp 16 08/14/17 06:40 BP 146/71 08/14/17 06:40 Pulse Ox 94 L 08/14/17 06:40 Intake & Output 08/13/17 08/14/17 08/14/17 18:59 06:59 18:59 Intake Total 90 1780 Output Total 1 2 1 Balance 89 1778 -1 Weight 82.3 kg Intake: IV 90 50 Piperacillin-Tazobactam 3 50 50 .375 gm In Dextrose/Water 1 50ml.bag @ 12.5 mls/hr IVPB Q8HR MICHELINE Rx#: [id number] Sodium Chloride 0.9% 1, 40 000 ml @ 20 mls/hr IV . Q24H MICHELINE Rx#:[id number] Intake, IV Titration 400 Amount Sodium Chloride 0.9% 1, 400 000 ml @ 20 mls/hr IV . Q24H MICHELINE Rx#:[id number] Oral 1330 Output: Stool 1 2 1 Other: Voiding Method Bedside Commode Bedside Commode Bedside Commode # Voids 4 2 - Exam GENERAL: The patient is alert and oriented x3, patient is not on any respiratory distress on 6 L high flow nasal cannula HEENT: Pupils are round and equally reacting to light. EOMI. No scleral icterus. No conjunctival pallor. Normocephalic, atraumatic. No pharyngeal erythema. No thyromegaly. CARDIOVASCULAR: S1 and S2 present. No murmurs, rubs, or gallops. PULMONARY: Patient has scattered rhonchi and crackles are still present in the left lung compared to the right. Few scattered expiratory wheezes. Overall air entry is adequate bilaterally. ABDOMEN: Soft, nontender, nondistended, normoactive bowel sounds. No palpable organomegaly. MUSCULOSKELETAL: No joint swelling or deformity. EXTREMITIES: No cyanosis, clubbing, or pedal edema. NEUROLOGICAL: Gross neurological examination did not reveal any focal deficits. SKIN: No rashes. Examination of the skin revealed no evidence of significant rashes, suspicious appearing nevi or other concerning lesions. - Labs CBC & Chem 7: 08/14/17 06:49 08/14/17 06:49 Labs: Abnormal Lab Results - Last 24 Hours (Table) 08/13/17 08/14/17 08/14/17 Range/Units 17:37 06:49 06:49 WBC 12.6 H (3.8-10.6) k/uL Hgb 10.9 L (11.4-16.0) gm/dL Hct 33.5 L (34.0-46.0) % Metamyelocytes # (Man) 0.88 H (0) k/uL Myelocytes # (Manual) 0.25 H (0) k/uL Carbon Dioxide 31 H (22-30) mmol/L BUN 29 H (7-17) mg/dL Glucose 60 L (74-99) mg/dL POC Glucose (mg/dL) 106 H (75-99) mg/dL 08/14/17 08/14/17 Range/Units 07:20 11:42 WBC (3.8-10.6) k/uL Hgb (11.4-16.0) gm/dL Hct (34.0-46.0) % Metamyelocytes # (Man) (0) k/uL Myelocytes # (Manual) (0) k/uL Carbon Dioxide (22-30) mmol/L BUN (7-17) mg/dL Glucose (74-99) mg/dL POC Glucose (mg/dL) 67 L 103 H (75-99) mg/dL Microbiology - Last 24 Hours (Table) 08/08/17 18:42 Blood Culture - Preliminary Blood No Growth after 120 hours Assessment and Plan Plan: Assessment 1 acute COPD exacerbation secondary to a left lung pneumonia. Clinically improved. This was likely a bacterial pneumonia that responded nicely to a combination of Zosyn and Levaquin and the patient's left upper lobe consolidation is gradually improving. Meanwhile, patient is improved and patient is currently on room air. She is having some limited ongoing cough. No altered mentation. Hemodynamically stable. 2 acute hypoxic respiratory failure secondary to above, improving, currently on room air oxygen with a pulse ox of 94% 3 acute BiPAP dependent respiratory failure, recovered 4 hypertension 5 hyperlipidemia 6 osteoarthritis 7 acute kidney injury, recovered Plan Complete a prednisone burst taper. The IV Zosyn can be discontinued tomorrow and the patient can be discharged home on Levaquin. Promethazine for cough. Increased level of activity as tolerated. Advance diet. We'll continue to follow on outpatient basis. Kept on IV fluids to KVO.
--- NOTE | 2017-08-14 16:52 | PN ---
PROGRESS NOTE DATE OF SERVICE: 08/14/2017 This 81-year-old woman was admitted with COPD acute exacerbation as well as respiratory failure is improving significantly. No chest pain. No palpitations. No fever. EXAM: Alert, and oriented x3. Pulse is 82. Blood pressure 140/71, respiration 16, temperature 97.6, pulse ox 94% on room air. HEENT: Conjunctivae normal. NECK: No jugular venous distention. Cardiovascular: S1, S2 muffled. RESPIRATORY: Breath sounds diminished in the bases. A few scattered rhonchi and crackles. Abdomen is soft, nontender. Legs are no edema, no swelling. Central nervous system: No focal deficits. LABS: WBC 12.6. ASSESSMENT: 1. Chronic obstructive pulmonary disease exacerbation with acute hypoxic hypercarbic respiratory failure. 2. Hypertension. 3. Hyperlipidemia. 4. History of degenerative joint disease. 5. History of nicotine dependence. RECOMMENDATIONS AND DISCUSSION: I recommend to continue current medications, management and symptomatic treatment, continue the bronchodilators. Continue steroids. Further recommendations to follow. MMODL / IJN: [id number] /
[2017-08-14 17:29] LABS: Glucose,Whole Blood 113 mg/dL (75-99)
[2017-08-14 20:32] LABS: Glucose,Whole Blood 110 mg/dL (75-99)
[2017-08-14] MEDS: MONTELUKAST 10 MG TAB PO SCH (21:08)
[2017-08-14] MEDS: ATORVASTATIN 20 MG TAB PO SCH (21:08)
[2017-08-15] MEDS: HEPARIN SODIUM,PORCINE 5,000 UNIT/ML 1 ML VIAL SQ SCH ×2 (00:15→08:19)
[2017-08-15 07:06] LABS: Glucose,Whole Blood 74 mg/dL (75-99)
[2017-08-15 07:35] LABS: Basophils # (A) 0.1 k/uL (0-0.2); Basophils % (A) 1 %; Eosinophils # (A) 0.3 k/uL (0-0.7); Eosinophils % (A) 2 %; HCT 38.1 % (34.0-46.0); HGB 11.8 gm/dL (11.4-16.0); Hypochromasia Slight; Lymphocytes # (A) 4.1 k/uL (1.0-4.8); Lymphocytes % (A) 26 %; MCH 27.1 pg (25.0-35.0); MCV 87.3 fL (80.0-100.0); Mean Platelet Volume 6.5; Monocytes # (A) 0.8 k/uL (0-1.0); Monocytes % (A) 5 %; Neutrophils % (A) 64 %; Platelet Count 483 k/uL (150-450); RBC 4.36 m/uL (3.80-5.40); RDW 14.9 % (11.5-15.5); WBC 15.5 k/uL (3.8-10.6)
[2017-08-15] MEDS: SYMBICORT 160-4.5 MCG INHALER INHALATION SCH (07:37)
[2017-08-15] MEDS: IPRATROPIUM-ALBUTEROL 3 ML NEB INHALATION SCH ×2 (07:37→11:22)
[2017-08-15 07:45] LABS: Calcium 9.4 mg/dL (8.4-10.2); Potassium 4.4 mmol/L (3.5-5.1)
[2017-08-15] MEDS: INSULIN ASPART 100 UNIT/ML 1 ML 10 ML VIAL SQ SCH ×2 (08:17→12:47)
[2017-08-15 08:19] VITALS: BP 172/73; RESP 18; TEMP 97.6
[2017-08-15] MEDS: PIPERACILLIN-TAZOBACTAM 3.375 GM in DEXTROSE/WATER 1 50ML.BAG IVPB SCH (08:19)
[2017-08-15] MEDS: predniSONE 20 MG TAB PO SCH (08:19)
[2017-08-15] MEDS: VIT A,C & E-LUTEIN-MINERALS 1 EACH TAB PO SCH (08:19)
[2017-08-15] MEDS: CYANOCOBALAMIN 500 MCG TAB PO SCH (08:20)
[2017-08-15] MEDS: ASPIRIN 81 MG PO SCH (08:20)
[2017-08-15] MEDS: FUROSEMIDE 20 MG TAB PO SCH (08:20)
[2017-08-15] MEDS: LISINOPRIL 20 MG TAB PO SCH (08:20)
[2017-08-15] MEDS: PANTOPRAZOLE 40 MG TABLET PO SCH (08:20)
[2017-08-15 11:37] VITALS: PULSE 74
[2017-08-15 11:46] VITALS: BMI 35.4
[2017-08-15 11:50] LABS: Glucose,Whole Blood 95 mg/dL (75-99)
[2017-08-15 12:31] LABS: Glucose,Whole Blood 126 mg/dL (75-99)
--- NOTE | 2017-08-15 14:06 | P.PN ---
Subjective Progress Note Date: 08/15/17 Principal diagnosis: Acute COPD exacerbation secondary to a left lung pneumonia, clinically improved A 81-year-old female patient with known history of mild COPD with a baseline FEV1 of 82% of predicted, whereas been followed up in our office with Dr. Skinner. The patient is known to have hyperlipidemia and hypertension. The patient came into the hospital for increased shortness of breath. The patient was apparently having increased cough and dyspnea chest tightness and wheezing. She was found to have a pneumonia at [facility] and the patient got transferred to our hospital for further care. She was having considerable distress and she was placed on BiPAP for respiratory support and currently she is on BiPAP at a pressure of 12/5 cm of water with an FiO2 of 40%. She was is saturating in the order of 93%. She is hemodynamically stable. Her white cell count is at 15.8. Hemoglobin is at 10.1. Chest x-ray showed a left lower lobe pulmonary infiltrate along with small effusion in addition to chronic changes. The patient is alert and awake. The patient is following commands and answering questions appropriately. The patient has no chest pain. No pleurisy. No hemoptysis. She is currently on Rocephin and Zithromax. The patient has been given a course of Z-Luis on outpatient basis and she just finished a course of Z-Luis prior to her coming to the hospital. She is having frequent coughing spells. No significant sputum production. No drop in urine output. No edema in lower extremities. No altered mentation. No aspiration and she is able to swallow food without any major difficulties. Currently she is on high flow oxygen as she is having some soft diet at 10 L/m nasal cannula. The patient is seen again today 08/09/2017 in follow-up in the intensive care unit. She is awake and alert in no acute distress. She states she is breathing easier today as compared to yesterday. She still has an ongoing dry nonproductive cough. She is currently off the BiPAP and maintaining good O2 saturations in the mid 90s on 6 L high flow nasal cannula. She is currently afebrile. Sputum cultures pending. White count 11.7. Hemoglobin 9.2. Creatinine 1.20. Bicarb 19. She remains on Zosyn and Levaquin. Bronchodilators and Symbicort. Phenergan With Codeine and Tessalon Perles. On today's evaluation of 08/10/2017, the patient is less short of breath. She is still having coughing episodes. Her oxidation is improved and she is currently down to 3 L of oxygen nasal cannula. However, the chest x-ray still showing a stable large consolidation of the left lung. I will give the patient another day of treatment with antibiotics and if abnormalities persist we'll proceed with a CAT scan of the chest. Otherwise, she has no specific complaints and she has no altered mentation. She'll be able to sit up on a chair today for us. She is hemodynamically stable on no pressors. No fever or chills. No other significant events over the past 24 hours. She has been resuscitated adequately and adequately with IV fluids. The antibiotic coverage remains a combination of Zosyn and Levaquin. All of the cultures of been negative thus far. On 08/11/2017, the patient is being seen for a follow-up. The patient is being cheered for pneumonia. The chest x-ray is unchanged and there is a masslike consolidation within the left lung. She is on a combination of Zosyn and Levaquin. I think she deserves a CAT scan of the chest to make sure there is no underlying mass. Meanwhile, the patient is still on the same antibiotic coverage at 3 L of oxygen by nasal cannula. She is having episodic cough without any hemoptysis. Chest is still congested and the patient is still having some bronchospasm wheezing still on IV Solu-Medrol 40 mg every 6 hours. She is also Phenergan With Codeine regarding her cough. No nausea. No vomiting no altered mentation. No other significant events over the past 24 hours. Cultures of been all negative. On 08/13/2007 and I'm seeing this patient for a follow-up. Clinically the patient is improved. I repeated a chest x-ray today shows improvement in the left lung consolidation. This is of history and pneumonia and this finding was also confirmed by CAT scan of the chest. No fever. No chills. Cough has subsided. Less short of breath. No nausea or vomiting. Awake and alert and she has adequate mentation. He remains on examination of Zosyn and Levaquin. She is also on IV Solu-Medrol which are being gradually tapered off the prednisone burst taper. She is on Phenergan for codeine for cough and her IV fluids at [facility]. On 08/13/2017 the patient has no specific complaints. She is on the medical floor. She got moved out of the intensive care unit. Her pneumonia is improving and the patient's consolidation of the left upper lobe is improved compared to yesterday. Cultures of been all negative. She is afebrile. No hemoptysis. No pleurisy. She is on a prednisone burst taper. She remains on accommodation of Zosyn and Levaquin. She may need another 24-48 ordered hours treatments regarding her pneumonia. Her white cell count is not elevated for now. Her blood sugar is 77. On 08/14/2017, the patient is doing extremely well. She is off oxygen. No respiratory difficulties. No chest pain. No hemoptysis or pleurisy. White cell count at 12.6. Communicating. Still on a combination of Zosyn and Levaquin and prednisone burst taper. No other significant events over the past 24 hours. She is active. No altered mentation. We're probably looking for discharging this patient with the next 24 hours. On 08/15/2017 patient seen in follow-up on medical surgical floor. She is doing very well, denies any distress, denies any worsening dyspnea, currently on room air, with O2 sat at 94%. She is afebrile, vital signs are stable. Denies any chest pain, denies any fever or chills, or chest congestion. She has been ambulating, tolerating activity well, today's lab work shows WBC of 15.5, hemoglobin of 11.8, CO2 of 35, B1 of 29, creatinine of 1.09. Denies any acute complaints, no acute events overnight. Sputum and blood cultures are negative since admission. Patient has responded well to antibiotics in the form of Levaquin and Zosyn, continues on oral prednisone. Patient is stable for discharge home today, on oral Levaquin, prednisone taper. Follow-up with Dr. Nesbitt in the office Objective - Vital Signs Vital signs: Vital Signs Temp 97.6 F 08/15/17 07:13 Pulse 74 08/15/17 11:32 Resp 18 08/15/17 07:13 BP 172/73 08/15/17 07:13 Pulse Ox 94 L 08/15/17 07:13 Intake & Output 08/14/17 08/15/17 08/15/17 18:59 06:59 18:59 Intake Total 50 780 Output Total 1 1 Balance 49 779 Weight 82.3 kg Intake: IV 50 290 Piperacillin-Tazobactam 3 50 50 .375 gm In Dextrose/Water 1 50ml.bag @ 12.5 mls/hr IVPB Q8HR MICHELINE Rx#: [id number] Sodium Chloride 0.9% 1, 240 000 ml @ 20 mls/hr IV . Q24H MICHELINE Rx#:[id number] Oral 490 Output: Stool 1 1 Other: Voiding Method Bedside Commode Bedside Commode Bedside Commode Diaper # Voids 2 2 - Exam GENERAL EXAM: Alert, active, comfortable in no apparent distress. HEAD: Normocephalic/atraumatic. EYES: Normal reaction of pupils, equal size. Conjunctiva pink, sclera white. NOSE: Clear with pink turbinates. THROAT: No erythema or exudates. NECK: No masses, no JVD, no thyroid enlargement, no adenopathy. CHEST: No chest wall deformity. Symmetrical expansion. LUNGS: Equal air entry with no crackles, wheeze, rhonchi or dullness. CVS: Regular rate and rhythm, normal S1 and S2, no gallops, no murmurs, no rubs ABDOMEN: Soft, nontender. No hepatosplenomegaly, normal bowel sounds, no guarding or rigidity. EXTREMITIES: No clubbing, no edema, no cyanosis, 2+ pulses and upper and lower extremities. MUSCULOSKELETAL: Muscle strength and tone normal. SPINE: No scoliosis or deformity SKIN: No rashes CENTRAL NERVOUS SYSTEM: Alert and oriented -3. No focal deficits, tone is normal in all 4 extremities. PSYCHIATRIC: Alert and oriented -3. Appropriate affect. Intact judgment and insight. - Labs CBC & Chem 7: 08/15/17 07:17 08/15/17 07:17 Labs: Abnormal Lab Results - Last 24 Hours (Table) 08/13/17 08/14/17 08/14/17 Range/Units 20:21 17:25 20:30 WBC (3.8-10.6) k/uL Plt Count (150-450) k/uL Neutrophils # (1.3-7.7) k/uL Carbon Dioxide (22-30) mmol/L BUN (7-17) mg/dL Creatinine (0.52-1.04) mg/dL Glucose (74-99) mg/dL POC Glucose (mg/dL) 126 H 113 H 110 H (75-99) mg/dL 08/15/17 08/15/17 08/15/17 Range/Units 07:06 07:17 07:17 WBC 15.5 H (3.8-10.6) k/uL Plt Count 483 H (150-450) k/uL Neutrophils # 10.0 H (1.3-7.7) k/uL Carbon Dioxide 35 H (22-30) mmol/L BUN 29 H (7-17) mg/dL Creatinine 1.09 H (0.52-1.04) mg/dL Glucose 65 L (74-99) mg/dL POC Glucose (mg/dL) 74 L (75-99) mg/dL Microbiology - Last 24 Hours (Table) 08/08/17 18:42 Blood Culture - Final Blood No Growth after 144 hours Assessment and Plan Plan: Assessment: 1 acute COPD exacerbation secondary to a left lung pneumonia. Clinically improved. This was likely a bacterial pneumonia that responded nicely to a combination of Zosyn and Levaquin and the patient's left upper lobe consolidation is gradually improving. Meanwhile, DrLiliya patient is improved and patient is currently on room air. She is having some limited ongoing cough. No altered mentation. Hemodynamically stable. 2 acute hypoxic respiratory failure secondary to above, improving, currently on room air oxygen with a pulse ox of 94% 3 acute BiPAP dependent respiratory failure, recovered 4 hypertension 5 hyperlipidemia 6 osteoarthritis 7 acute kidney injury, recovered Plan Discontinue Zosyn, patient continues to improve, tolerating ambulation, vital signs are stable, patient is afebrile, microbiology has been negative since admission. Patient is stable for discharge home today on outpatient course of Levaquin, prednisone taper, promethazine, and maintenance nebulized treatments and inhalers. Follow up with the office I performed a history & physical examination of the patient and discussed their management with my nurse practitioner, Norma Tejada. I reviewed the nurse practitioner's note and agree with the documented findings and plan of care. Lung sounds are clear. The findings and the impression was discussed with the patient. I attest to the documentation by the nurse practitioner. Time with Patient: Less than 30
--- NOTE | 2017-08-15 20:05 | DS ---
DISCHARGE SUMMARY DATE OF SERVICE: 08/15/2017. FINAL DIAGNOSES: 1. Chronic obstructive pulmonary disease acute exacerbation acute hypoxic hypercarbic respiratory failure. 2. Hypertension. 3. Hyperlipidemia. 4. History of degenerative joint disease. 5. History of nicotine dependence. DISCHARGE DISPOSITION: The patient is being discharged in stable condition with guarded prognosis. HISTORY OF PRESENT ILLNESS: This 81-year-old with a past medical history of multiple medical problems including COPD and multiple other complex medical issues. The patient was monitored closely and Dr. Nesbitt and Dr. Farah saw the patient. Patient improved significantly. PHYSICAL EXAMINATION: On exam, vitals are stable. Cardiovascular: S1, S2. Respiratory: A few scattered rhonchi. Abdomen soft. Nervous system: No focal deficits. DISCHARGE ADVICE AND MEDICATIONS: 1. Diet is cardiac. 2. Follow up with Dr. Renzo Castro in 2-3 days. 3. Follow up with Dr. Nesbitt as advised. MEDICATIONS ARE: 1. Aspirin 81 mg. 2. Symbicort 160/4.5 two puffs b.i.d. 3. Vitamin B12 1 tablet p.o. daily. 4. Lasix 20 mg p.o. daily. 5. DuoNeb q.i.d. and p.r.n. 6. Levaquin 750 mg q.48h hours for 5 doses. 7. Zestril 20 mg p.o. daily. 8. Singular 10 mg q.h.s. 9. Protonix 40 mg daily. 10.Prednisone taper, that will be 40 mg daily for three days, 30 for 3 days, 20 for 3 days, 10 for three days and stop. 11.Promethazine codeine 5 mL q.6h p.r.n. 12.Zocor 40 mg q.h.s. 13.Vitamin A, C and D 1 p.o. daily. Once again the patient is being discharged in stable condition with guarded prognosis. MMODL / IJN: [id number] /
--- NOTE | 2017-08-17 08:21 | CDI ---
Last Revision, March 2017 Documentation Clarification Form Date: 08/17/2017 12:00:00 AM From: ABDULLAHI Hickman; Michelle Domínguez [employer] Phone: If you have a question about this query, please contact Michelle Domínguez [employer] at [phone] between 8am and 5pm. Admit Date: 08/08/2017 1:14:00 PM Patient Name: Naomi Long Visit Number: [id number] Discharge Date: 08/15/2017 ATTENTION: The Clinical Documentation Specialists (CDI) and [facility] Coding Staff appreciate your assistance in clarifying documentation. Please respond to the clarification below the line at the bottom and electronically sign. The CDI & [facility] Coding staff will review the response and follow-up if needed. Please note: Queries are made part of the Legal Health Record. If you have any questions, please contact the author of this message via ITS. Dr. Katja Ghosh History/Risk Factors: COPD, pneumonia, acute respiratory failure. Clinical Indicators: acute renal failure due to diuretic and lisinopril. Chronic renal failure documented on progress note 08/13. Current BUN/CR/GFR:29, 1.09, 40 Patients Baseline: BUN/CR/GFR: 1 Treatment: IV hydration In order to capture the severity of condition, please clarify if the condition signifies: CKD Stage 1 (GFR > 90) CKD Stage 2 (GFR 60-89) CKD Stage 3 (GFR 30-59) CKD Stage 4 (GFR 15-29) CKD Stage 5 (GFR <15) ESRD Other, please specify Unable to determine Unable to determine MTDD
== END 2017-08-15 14:15 | disposition home or self-care (01) | DRG 193 ==
LOC: EC 11:56 → 6SEL 13:14 → 6ICU 15:24 → 5MS5E 08-12 18:57
PROVIDERS: ADMIT Internal Medicine; ATTEND Internal Medicine
DX: J15.9 Unspecified bacterial pneumonia (principal); J96.01 Acute respiratory failure with hypoxia; J96.02 Acute respiratory failure with hypercapnia; N17.9 Acute kidney failure, unspecified; I13.0 Hypertensive heart and chronic kidney disease with heart failure and stage 1 through stage 4 chronic kidney disease, or unspecified chronic kidney disease; J44.0 Chronic obstructive pulmonary disease with (acute) lower respiratory infection; J44.1 Chronic obstructive pulmonary disease with (acute) exacerbation; I50.9 Heart failure, unspecified; E78.5 Hyperlipidemia, unspecified; J98.01 Acute bronchospasm; M19.90 Unspecified osteoarthritis, unspecified site; T50.2X5A Adverse effect of carbonic-anhydrase inhibitors, benzothiadiazides and other diuretics, initial encounter; Z79.51 Long term (current) use of inhaled steroids; Z79.82 Long term (current) use of aspirin; Z79.899 Other long term (current) drug therapy; Z87.891 Personal history of nicotine dependence; Z88.2 Allergy status to sulfonamides; Z87.820 Personal history of traumatic brain injury; N18.9 Chronic kidney disease, unspecified
CPT/HCPCS: 71045; 71260; 80048; 83036; 83605; 83735; 83880; 84100; 85025; 87040; 87070; 87205; 87502; 93005; 94640; 94660; 94760; 96365; 96375; 99285

== ENCOUNTER → 2019-12-19 | Outpatient (CLI) | payer MEDICARE ==
--- NOTE | 2019-12-19 13:14 | CT ---
EXAMINATION TYPE: CT angio chest DATE OF EXAM: 12/19/2019 COMPARISON: None HISTORY: Shortness of breath. CT DLP: 557 mGycm CONTRAST: CT chest with contrast and 3D reconstruction with MIP imaging is performed with IV Contrast, patient injected with 57ml mL of Isovue 370. Contrast-enhanced CT of the chest was performed through the course of the pulmonary arteries with loretta g and mediastinal window settings submitted. 3D reconstruction with MIP imaging was also performed. PULMONARY ARTERIES: The pulmonary arteries and their major tributaries are patent. I do not see roger dence for sizable filling defect to suggest pulmonary embolic process. LUNGS: The lungs are clear and free of infiltrate. Atelectasis right middle lobe. No pulmonary nodule or mass is detected. No pleural effusion. 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 No evidence for dissection. No evidence for mediastinal mass. No medi astinal lymph nodes greater than 1cm. HILAR STRUCTURES: No evidence for mass. No hilar lymph nodes greater than 1 cm. UPPER ABDOMEN: No significant abnormality is seen. IMPRESSION: 1. No evidence for Pulmonary embolism at this time.
== END | disposition home or self-care (01) ==
LOC: RADCTMAIN 12:00
PROVIDERS: ATTEND Internal Medicine
DX: R06.02 Shortness of breath (principal); Z88.2 Allergy status to sulfonamides
CPT/HCPCS: 82565; 84520; 71275; 36415; Q9967; 93005; 99214

== ENCOUNTER → 2021-05-04 | Outpatient (CLI) | payer MEDICARE ==
[2021-05-04 10:18] LABS: HCT 38.8 % (34.0-46.0); HGB 12.3 gm/dL (11.4-16.0); Hypochromasia Moderate; MCHC 31.6 g/dL (31.0-37.0); MCV 91.9 fL (80.0-100.0); Mean Platelet Volume 7.3; Platelet Count 317 k/uL (150-450); RBC 4.22 m/uL (3.80-5.40); RDW 13.7 % (11.5-15.5); WBC 9.4 k/uL (3.8-10.6)
[2021-05-04 10:22] LABS: Appearance,Urine Clear (Clear); Bacteria,Urine Rare /hpf; Bilirubin,Urine Negative (Negative); Blood,Urine Negative (Negative); Color,Urine Light Yellow; Glucose,Urine (UA) Negative (Negative); Ketones,Urine Negative (Negative); Leukocyte Esterase,Urine Moderate (Negative); Mucus,Urine Rare /hpf; Nitrite,Urine Negative (Negative); PH, Urine 5.5 (5.0-8.0); Protein,Urine Negative (Negative); Specific Gravity,Urine 1.012 (1.001-1.035); Squamous Epithelial Cell,Urine <1 /hpf (0-4); Urobilinogen,Urine <2.0 mg/dL (<2.0); WBC,Urine 15 /hpf (0-5)
[2021-05-04 10:50] LABS: Partial Thromboplastin Time 23.1 sec (22.0-30.0); Prothrombin Time 10.8 sec (9.0-12.0)
[2021-05-04 10:54] LABS: Albumin 3.9 g/dL (3.5-5.0); Potassium 5.9 mmol/L (3.5-5.1); Total Bilirubin 0.5 mg/dL (0.2-1.3); Total Protein 7.2 g/dL (6.3-8.2)
== END | disposition home or self-care (01) ==
LOC: LABPAT 08:38
PROVIDERS: ATTEND Orthopaedic Surgery Sports Medicine
DX: Z01.812 Encounter for preprocedural laboratory examination (principal); M19.011 Primary osteoarthritis, right shoulder
CPT/HCPCS: 80053; 81001; 85027; 85610; 85730; 87070; 93005

== ENCOUNTER 2021-05-21 08:26 | Day surgery (SDC) | payer MEDICARE ==
[2021-05-14 13:37] VITALS: BMI 35.9
[~2021-05-21 08:26] MED LIST: ACETAMINOPHEN TAB 500 MG TAB PO PRN; GABAPENTIN 300 MG CAP PO PRN; HYDROmorphone 0.5 MG/0.5 ML SYRINGE IVP PRN; MELOXICAM 7.5 MG TAB PO PRN; MIDAZOLAM 2 MG/2 ML VIAL IV PRN; ONDANSETRON 4 MG/2 ML VIAL IVP PRN; TRANEXAMIC ACID 1,000 MG in SODIUM CHLORIDE 0.9% 100 ML IVPB PRN
[2021-05-21] MEDS: LACTATED RINGERS 1,000 ML IV SCH ×3 (09:53→23:12)
[2021-05-21] MEDS ORDERED: DEXAMETHASONE SOD PHOSPHATE 4 MG/ML 1 ML VIAL IVP ONE (10:01)
[2021-05-21] MEDS ORDERED: PROCHLORPERAZINE SUPPOSITORY 25 MG SUPP RECTAL PRN (10:18)
[2021-05-21] MEDS ORDERED: MIDAZOLAM 2 MG/2 ML VIAL IVP ONE (10:18)
[2021-05-21] MEDS ORDERED: HYDROmorphone 0.5 MG/0.5 ML SYRINGE IVP PRN (10:18)
[2021-05-21] MEDS ORDERED: METOCLOPRAMIDE 5 MG/ML 2 ML VIAL IVP PRN (10:18)
[2021-05-21] MEDS ORDERED: HYDROcodone/APAP 5-325MG 1 EACH TAB PO PRN (10:18)
[2021-05-21] MEDS ORDERED: ONDANSETRON 4 MG/2 ML VIAL IVP PRN (10:18)
[2021-05-21] MEDS ORDERED: diphenhydrAMINE 25 MG CAP PO PRN (10:18)
[2021-05-21] MEDS ORDERED: SENNOSIDES-DOCUSATE SODIUM 1 EACH TAB PO PRN (10:18)
[2021-05-21] MEDS ORDERED: HYDROmorphone 0.2 MG/1 ML SYRINGE IVP PRN (10:18)
[2021-05-21] MEDS ORDERED: fentaNYL (PF) 50 MCG/ML 2 ML AMP IVP ONE ×2 (10:18)
[2021-05-21] MEDS ORDERED: SUCCINYLCHOLINE CHLORIDE 100 MG/5 ML SYR IV ONE (10:39)
[2021-05-21] MEDS ORDERED: SODIUM CHLORIDE 0.9% 100 ML BAG ONE (10:39)
[2021-05-21] MEDS ORDERED: LIDOCAINE 1% INJ 10MG/ML (20 ML MDV) ONE (10:39)
[2021-05-21] MEDS ORDERED: ROCURONIUM 10 MG/ML (5 ML VIAL) IV ONE (10:39)
[2021-05-21] MEDS ORDERED: PROPOFOL 10 MG/ML 20 ML VIAL IV ONE (10:39)
[2021-05-21] MEDS ORDERED: fentaNYL (PF) 50 MCG/ML 2 ML AMP ONE (10:39)
[2021-05-21] MEDS ORDERED: ePHEDrine 50 MG/ML 1 ML AMP ONE (10:39)
[2021-05-21] MEDS ORDERED: GLYCOPYRROLATE 0.2 MG/ML 2 ML VIAL ONE (10:39)
[2021-05-21] MEDS ORDERED: PHENYLEPHRINE-0.9% NACL SYG 1,000 MCG/10 ML SYRINGE ONE (10:39)
[2021-05-21] MEDS ORDERED: NEOSTIGMINE 1 MG/ML 10 ML VIAL ONE (10:39)
[2021-05-21] MEDS ORDERED: TRANEXAMIC ACID 1,000 MG/10 ML VIAL ONE (10:39)
[2021-05-21] MEDS ORDERED: ROPIVACAINE 5 MG/ML 30 ML VIAL ONE (10:39)
[2021-05-21] MEDS ORDERED: ceFAZolin 3,000 MG in SODIUM CHLORIDE 0.9% IRRIGATIO 3,000 ML IRRIGATION ONE (10:43)
[2021-05-21] MEDS ORDERED: VANCOMYCIN 1,000 MG VIAL MISCELLANE ONE (12:05)
--- NOTE | 2021-05-21 12:25 | P.ANPRN ---
Procedure Note - Anesthesia - Nerve Block Performed Right Interscalene Single Time Out Performed: Yes ([id number]) Date of Procedure: 05/21/21 Procedure Start Time: :18 Procedure Stop Time: Location of Patient: PreOp Indication: Acute Post-Operative Pain, Requested by Surgeon Specifically requested for management of pain by DrLiliya: Sandeep Goldberg Sedation Type: Sedate with meaningful contact maintained Preparation: Sterile Prep Position: Supine Catheter: None Needle Types: Pajunk Needle Gauge: 21 Ultrasound used to visualize needle placement: Yes Ultrasound used to observe medication spread: Yes Injectate: 0.5% Ropivacaine (see comment for volume) (30cc) Blood Aspirated: No Pain Paresthesia on Injection Noted: No Resistance on Injection: Normal Image Stored and Saved: Yes Events: Uneventful and Well Tolerated
--- NOTE | 2021-05-21 13:51 | XR ---
Right shoulder HISTORY: Postop Single frontal view of the right shoulder Patient is status post right shoulder arthroplasty. There is anatomic alignment in this single view. Lucency is present within the soft tissues. Bone mineralization is reduced. There is an indwelling dr esther. Right lung show some probable basilar atelectatic change. There are overlying artifacts. IMPRESSION: Orthopedic follow-up
--- NOTE | 2021-05-21 14:43 | OP ---
OPERATIVE REPORT DATE OF PROCEDURE: 05/21/2021. SURGEON: Sandeep Goldberg MD. RN VISITING: Randolph Galeana PA-C PREOPERATIVE DIAGNOSIS: Right shoulder advanced rotator cuff arthropathy. POSTOPERATIVE DIAGNOSIS: Right shoulder advanced rotator cuff arthropathy. OPERATION: Right reverse total shoulder arthroplasty. ANESTHESIA: General endotracheal. ESTIMATED BLOOD LOSS: 200 mL. DRAINS: One deep drain. COMPLICATIONS: None apparent. DISPOSITION: Post-Anesthesia Care Unit INDICATIONS: Mrs. Long is a pleasant 85-year-old female with longstanding history of right shoulder pain. Workup including x-rays and CT scan revealed advanced rotator cuff arthropathy of the right shoulder. At this point she feels that she has failed conservative management. She would like to proceed with operative intervention. Risks of the procedure were discussed with her in detail. These risks included but were not limited to risk of infection, nerve damage, bleeding, pain, instability in the shoulder, loosening of the implants and deep infection. There is also a small risk of deep vein thrombosis which could lead to fatal pulmonary embolism. The patient understood the risks. All of her questions with regard to the risks of procedure were answered to her satisfaction. Appropriate informed consent was obtained. DESCRIPTION OF PROCEDURE: The patient was identified in the preoperative holding area. Surgical site was marked by both the patient and myself. She was given 2 grams of Ancef IV for prophylactic purposes. She was then transported to the operative suite. She was placed supine on the operating room table. General anesthetic was then administered and dosed per the anesthesia department without apparent complication. Examination under anesthesia was then performed of the right shoulder. She had elevation to 120 degrees. External rotation at the side was to 20 degrees. She was then placed into the beach chair position, well padded in preparation for surgery. Great care was taken to ensure that her cervical spine was in neutral alignment, well padded and maintained that way throughout the operative procedure. Great care was also taken to ensure to that her legs were appropriately padded as well. The patient's right upper extremity was then prepped and draped in the usual sterile fashion. Standard surgical pause was undertaken to ensure that we were operating on the correct site and that appropriate preoperative antibiotics had been given. All staff in the room were in agreement and we proceeded. The acromion, AC joint, clavicle and coracoid were marked with a surgical pen. A planned incision starting at the level of the clavicle and extending distally over the deltopectoral interval approximately 1 cm lateral to the coracoid was marked with the surgical pen. The incision was then made with a 10 blade scalpel. Dissection was carried down sharply to the deltoid fascia. The deltopectoral interval was then identified to the level of the clavicle. A small band retractor was placed under the proximal deltoid. We then released the deltoid fascia on the lateral aspect of the cephalic vein. The vein was preserved and left in its bed medially. The cephalic vein was also protected throughout the entire case. I then identified the clavipectoral fascia. It was incised proximally at the level of the coracoacromial ligament. The coracoacromial ligament was then left intact. I then used my finger to spread the interval between the conjoint tendon and the subscapularis. I felt for the axillary nerve, which was readily palpable. I then cleared the subacromial and subdeltoid spaces of bursal and scar tissue. I then utilized a Seals retractor to hold the deltoid and expose the humeral head. I then proceeded to release the subscapularis and the anterior inferior shoulder capsule. The rotator cuff was inspected. She had a complete devoid supraspinatus, infraspinatus. The subscapularis was intact, however. The course of the biceps tendon was also identified. I then released the rotator interval. It was released at the base of the coracoid and then laterally. The subscapularis and the capsule were then released intratendinously. The subscapularis and capsule release extended distally in a lazy-S fashion approximately 1 cm medial to the biceps tendon. I then continued to release the capsule along the inferior neck of the humerus in a vertical fashion to approximately the 6 o'clock position. Great care was taken to ensure the capsule was always visualized as it was released, as to avoid injuring the axillary nerve. I then brought the Argueta washer engineer helper, and with the arm externally rotated and ducted, I continued to release the capsule inferomedially to the 4 o'clock position. The inferior osteophytes were now removed as well. This was done with a rongeur. I then proceeded with preparation of the humerus. I removed all of the goat's el osteophytes. I then removed the subchondral plate from the superior aspect of the humeral head utilizing a large rongeur. I then utilized a starting reamer to gain access to the humeral canal. This was approximately 1 cm medial to the rotator cuff insertion and 1 cm posterior to the bicipital groove. I then prepared the humeral canal with hand reaming. I started with a 6 mm reamer and progressed incrementally until firm resistance was encountered at 12 mm. The reamer handle was then left in place. I then utilized a humeral resection guide. This was set at 30 degrees of retrotorsion. The cutting block was then set approximately at the level of the rotator cuff insertion. I then proceeded to osteotomize the humeral head with an oscillating saw. I removed the resection guide and then completed the osteotomy. I then proceeded to broach the humeral canal. I started with a size 6 broach and incrementally increased up to a size 10 broach. The broaching was done in approximately 30 degrees of retrotorsion. As mentioned, she did have a complete devoid supraspinatus or infraspinatus attachment. I then inspected the glenoid for any loose bodies. The broach was left in place and I then proceeded with exposure of the glenoid. At this point I did release the biceps tendon. This was tenotomized at the level of the superior labrum. A bone hook was then used to pull the humerus out laterally. I inspected the joint for any loose bodies. The condition of the cuff was again inspected. Again it was it was completely devoid of supraspinatus or infraspinatus. The Bhattman retractor was then placed on the posterior glenoid rim. The arm was placed in approximately 70 to 80 degrees of abduction and in slight flexion on the Argueta stand. I then proceeded to remove the hypertrophic labrum to definitively identify the actual glenoid. I then placed the central pin. This was done utilizing the guide. The pin was then inserted in approximately 10 degrees of inferior tilt. I then proceeded to ream the glenoid fossa with the mini base plate reamer. I then placed the mini base plate into the actual glenoid. It was impacted into place. The pin was removed and I placed a 25 mm central screw. The central screw had an excellent purchase in bone. I was able to rotate the scapula through the screwdriver when the screw was fully seated. I then placed the peripheral locking screws around the base plate. The inferior screw was 20 mm. The anterior, posterior and superior screws were 15 x 5 mm locking screws. I then had the equal opportunity representative open a size 36 mm glenosphere. The offset was set slightly to inferiorly translate the humeral head. The Braxton taper was dried and then the glenosphere was impacted onto a dried Braxton taper of the glenoid base plate. I then placed a standard tray, a standard poly trial. The shoulder was reduced. It was a fairly difficult reduction. The shoulder was very stable. It was taken through a full range of motion. No impingement was noted. The shoulder was then carefully redislocated. The wound was then thoroughly irrigated with sterile saline solution with antibiotic added. I had the equal opportunity representative open a size 10 mini stem, a standard tray and a standard polyethylene. The stem was then impacted into the proximal humerus, again in approximately 30 degrees of retrotorsion. The Braxton taper was dried and then the standard poly standard tray was then impacted onto the real stem. The shoulder was again reduced. Again it was a fairly difficult reduction. It was very stable. There was not any undue tension on the conjoint tendon. It was taken through a full range of motion. There was no impingement noted. I then felt for the axillary nerve, which was again readily palpable. The wound was again thoroughly irrigated with sterile saline solution with antibiotic added via pulse lavage. A deep drain was then placed and brought out superiorly away from the incision. Approximately 500 mg of vancomycin powder was then placed deep in the wound. The deltopectoral interval was then reapproximated with 0 Vicryl interrupted suture. The subcutaneous tissue was again further irrigated with sterile saline solution with antibiotic added. The remaining 500 mg of vancomycin powder was then placed subcutaneously. The subcutaneous tissue was then closed with 2-0 Vicryl interrupted suture. The skin was closed with running 3-0 Quill suture. Dermabond was then applied to the incision. A sterile compressive dressing was then applied. The patient's right upper extremity was placed into a standard sling. All sponge and needle counts were deemed correct prior to closure. The patient tolerated procedure without apparent complication. She was transferred to the recovery room in stable condition. MMODL / IJN: [id number] /
[2021-05-21] MEDS: HYDROcodone/APAP 5-325MG 1 EACH TAB PO PRN (23:03)
[2021-05-22] MEDS: HYDROcodone/APAP 5-325MG 1 EACH TAB PO PRN (05:23)
[2021-05-22 05:30] LABS: Basophils % (A) 0 %; Eosinophils % (A) 0 %; HCT 29.4 % (34.0-46.0); Hypochromasia Moderate; Lymphocytes # (A) 1.2 k/uL (1.0-4.8); Lymphocytes % (A) 13 %; MCH 28.5 pg (25.0-35.0); MCHC 31.1 g/dL (31.0-37.0); MCV 91.8 fL (80.0-100.0); Mean Platelet Volume 7.6; Monocytes # (A) 0.6 k/uL (0-1.0); Monocytes % (A) 6 %; Neutrophils # (A) 7.2 k/uL (1.3-7.7); Neutrophils % (A) 79 %; Platelet Count 220 k/uL (150-450); RDW 13.8 % (11.5-15.5); WBC 9.1 k/uL (3.8-10.6)
[2021-05-22 05:44] LABS: HGB 9.1 gm/dL (11.4-16.0)
[2021-05-22] MEDS: LACTATED RINGERS 1,000 ML IV SCH ×3 (09:01→18:29)
[2021-05-22] MEDS ORDERED: HYDROcodone/APAP 7.5-325MG 1 EACH TAB PO PRN (10:28)
--- NOTE | 2021-05-22 10:52 | P.PN ---
Subjective Progress Note Date: 05/22/21 Principal diagnosis: Right TSA Patient is seen at bedside this morning. She is postop day #1 from right reverse total shoulder arthroplasty. She has pain at the surgical site as expected but denies any new complaints. She denies numbness, tingling or calf pain. Review of systems is negative for fever, chills, chest pain, shortness of breath or other Objective - Vital Signs Vital signs: Vital Signs Temp 98.3 F 05/22/21 08:00 Pulse 63 05/22/21 08:00 Resp 18 05/22/21 08:00 BP 92/47 05/22/21 08:00 Pulse Ox 95 05/22/21 08:00 Intake & Output 05/21/21 05/22/21 05/22/21 18:59 06:59 18:59 Intake Total 631 Output Total 230 58 Balance 401 -58 Weight 81.3 kg Intake: IV 451 Oral 180 Output: Drainage 30 58 Right Shoulder 30 58 Estimated Blood Loss 200 Other: Voiding Method Toilet # Voids 1 1 - Exam Inspection reveals a benign surgical wound. There is no active bleeding or d rainage. Neurovascular status is intact throughout the upper extremity with motor and sensation fully intact. Calves are soft and nontender. 2+ radial pulse and less than 2 second cap refill is present. - Constitutional General appearance: Present: no acute distress - Labs CBC & Chem 7: 05/22/21 04:03 05/21/21 09:48 Labs: Abnormal Lab Results - Last 24 Hours (Table) 05/22/21 Range/Units 04:03 RBC 3.20 L (3.80-5.40) m/uL Hgb 9.1 L D (11.4-16.0) gm/dL Hct 29.4 L (34.0-46.0) % Assessment and Plan (1) Osteoarthritis of right shoulder Narrative/Plan: She will continue with routine postop orthopedic protocol including pain management, wound care, DVT prophylaxis and medical management. We will adjust pain meds today. Expect that she will transfer to home tomorrow Current Visit: Yes Status: Acute Priority: Medium Code(s): M19.011 - PRIMARY OSTEOARTHRITIS, RIGHT SHOULDER SNOMED Code(s): [id number] Time with Patient: Less than 30
[2021-05-22] MEDS: HYDROcodone/APAP 7.5-325MG 1 EACH TAB PO PRN ×2 (12:49→18:50)
[2021-05-22] MEDS: IPRATROPIUM-ALBUTEROL 3 ML NEB INHALATION SCH ×2 (15:55→19:55)
[2021-05-22] MEDS: SYMBICORT 160-4.5 MCG INHALER INHALATION SCH (19:55)
[2021-05-22] MEDS ORDERED: ATORVASTATIN 20 MG TAB PO SCH (21:00)
[2021-05-22] MEDS ORDERED: MONTELUKAST 10 MG TAB PO SCH (21:00)
--- NOTE | 2021-05-22 21:07 | P.CONS ---
History of Present Illness - Reason for Consult Consult date: 05/22/21 Medical management - Chief Complaint Right shoulder arthroplasty. - History of Present Illness Patient is a 85-year-old female with known history of COPD with FEV1 of 82%, hypertension, hyperlipidemia, osteoarthritis, closed head injury during childhood, previous history of smoking was admitted to hospital for right shoulder arthroplasty. Patient is status post right reverse total shoulder arthroplasty postoperative day 1. Currently patient is complaining of pain at the surgical site. Denies any headache or dizziness. No cough or sputum production. No nausea vomiting abdominal pain or diarrhea. Denies any leg swelling. Postoperatively patient is hypotensive with blood pressure went down to 95/53. Laboratory data showed WBC 9.1 hemoglobin 9.1 MCV 91.8 platelets 229 potassium is 4.7 coronavirus PCR not detected. Review of Systems Constitutional: Patient denies any fever or chills . No generalized weakness or weight loss. Abdomen: Patient denied nausea vomiting and diarrhea and abdominal pain. Cardiovascular: Patient denies any chest pain or short of breath no palpitations. Respiratory: patient denied any cough or sputum production. No shortness of breath Neurologic: Patient denied any numbness or tingling headache. Musculoskeletal: Patient denies any complaints of joint swelling or deformity.Right shoulder pain. Skin: Negative Psychiatric: Negative Endocrine: No heat or cold intolerance. No recent weight gain. Genitourinary: No dysuria or hematuria. All other 14 point ROS negative except the above Past Medical History Past Medical History: Heart Failure, COPD, Hyperlipidemia, Hypertension, Os teoarthritis (OA), Pneumonia Additional Past Medical History / Comment(s): COPD there has been mild in severity with an FEV1 of 82%, closed head injury during childhood, osteo arthritis, hypertension, hyperlipidemia, rectus diathesis of the abdominal wall History of Any Multi-Drug Resistant Organisms: None Reported Past Surgical History: Back Surgery Additional Past Surgical History / Comment(s): neck sx-, LEFT TOE SURGERY, RIGHT CARPAL TUNNEL Past Anesthesia/Blood Transfusion Reactions: No Reported Reaction Past Psychological History: No Psychological Hx Reported Additional Psychological History / Comment(s): pt lives alone uss walker when outside home. no home care services recieved. has nebulizer,walker. Smoking Status: Former smoker Past Alcohol Use History: Occasional Additional Past Alcohol Use History / Comment(s): started smoking at age 38(1973) and quit 1989,less oscar a packper day. Past Drug Use History: None Reported - Past Family History Mother Additional Family Medical History / Comment(s): MOM PASSED FROM BLOOD CLOT Father Family Medical History: Dementia Medications and Allergies Home Medications Medication Instructions Recorded Confirmed Type Aspirin [Adult Low Dose Aspirin EC] 81 mg PO DAILY 05/01/16 05/21/21 History Furosemide [Lasix] 20 mg PO DAILY 05/01/16 05/21/21 History Simvastatin [Zocor] 40 mg PO HS 05/01/16 05/21/21 History lisinopriL [Zestril] 20 mg PO DAILY 05/01/16 05/21/21 History Montelukast [Singulair] 10 mg PO HS 08/08/17 05/21/21 History Ipratropium-Albuterol Nebulize 3 ml INHALATION RT-QID #120 08/15/17 05/21/21 Rx [Duoneb 0.5 mg-3 mg/3 ml Soln] ampul.neb Ascorbic Acid [Vitamin C] 1,000 mg PO DAILY 05/14/21 05/21/21 History Cholecalciferol (Vitamin D3) 125 mcg PO DAILY 05/14/21 05/21/21 History [Vitamin D3 (125 MCG = 5,000 IU)] Ferrous Sulfate [Feosol] 325 mg PO DAILY 05/14/21 05/21/21 History Fluticasone/Vilanterol [Breo 1 inhalation INHALATION DAILY 05/14/21 05/21/21 History Ellipta 200-25 Mcg Inhaler] Hydrocodone/Acetaminophen 1 each PO TID PRN 05/14/21 05/21/21 History [Hydrocodone/Acetaminophen 7.5-325] Multivit with Calcium,Iron,Min 1 each PO DAILY 05/14/21 05/21/21 History [Women's Multivitamin] Vit C/E/Zn/Coppr/Lutein/Zeaxan 1 each PO DAILY 05/14/21 05/21/21 History [Preservision Areds 2 Softgel] Zinc 50 mg PO DAILY 05/14/21 05/21/21 History Cephalexin [Keflex] 500 mg PO Q6HR 1 Days #20 cap 05/22/21 Rx Docusate [Colace] 100 mg PO BID #60 capsule 05/22/21 Rx HYDROcodone/APAP 7.5-325MG [[place] 1 - 2 each PO Q6HR PRN #42 tab 05/22/21 Rx 7.5-325] Ondansetron [Zofran] 4 mg PO Q8HR PRN #21 tab 05/22/21 Rx Allergies Allergy/AdvReac Type Severity Reaction Status Date / Time doxycycline Allergy Nausea & Verified 05/21/21 09:30 Vomiting & Diarrhea Sulfa (Sulfonamide Allergy Anaphylaxis Verified 05/21/21 09:30 Antibiotics) Physical Exam Vitals: Vital Signs Temp Pulse Pulse Resp BP Pulse Ox 05/22/21 08:00 98.3 F 63 18 92/47 95 05/22/21 07:25 18 05/22/21 00:21 97.7 F 79 16 97/59 95 05/21/21 20:06 16 05/21/21 19:10 97.0 F L 82 16 95/53 97 05/21/21 16:11 72 105/65 95 05/21/21 15:41 75 97/61 97 05/21/21 15:11 71 101/63 96 05/21/21 14:56 80 100/64 95 05/21/21 14:41 71 102/61 96 05/21/21 14:27 97.4 F L 78 16 92/52 95 05/21/21 13:45 77 16 109/58 94 L 05/21/21 13:30 78 20 114/56 96 05/21/21 13:15 84 18 118/56 97 05/21/21 13:00 94 19 125/59 97 05/21/21 12:45 97.4 F L 111 H 22 130/58 97 Intake and Output 05/21/21 05/22/21 05/22/21 22:59 06:59 14:59 Intake Total 180 Output Total 30 58 Balance 150 -58 Intake: Oral 180 Output: Drainage 30 58 Right Shoulder 30 58 Other: Voiding Method Toilet # Voids 1 Weight 81.3 kg PHYSICAL EXAMINATION: Patient is lying in the bed comfortably, no acute distress, awake alert and oriented.. HEENT: Normocephalic. Neck is supple. Pupils reactive. Nostrils clear. Oral cavity is moist. Neck reveals no JVD, carotid bruits, or thyromegaly. CHEST EXAMINATION: Trachea is central. Symmetrical expansion. Lung snyder clear to auscultation and percussion. CARDIAC: Normal S1, S2 with no gallops. No murmurs ABDOMEN: Soft. Bowel sounds normal. No organomegaly. No abdominal bruits. Extremities: reveal no edema. No clubbing or cyanosis Neurologically awake, alert, oriented x3 with well-coordinated movements. No focal deficits noted Skin: No rash or skin lesions. Psychiatric: Cooperative. Nonsuicidal Musculoskeletal: No joint swelling or deformity. Right shoulder sling in place and surgical site is packed.. Results CBC & Chem 7: 05/22/21 04:03 05/21/21 09:48 Labs: Abnormal Lab Results - Last 24 Hours (Table) 05/22/21 Range/Units 04:03 RBC 3.20 L (3.80-5.40) m/uL Hgb 9.1 L D (11.4-16.0) gm/dL Hct 29.4 L (34.0-46.0) % Assessment and Plan Assessment: Status post right reverse total arthroplasty postoperative day 1 Mild acute blood blood loss anemia expected from surgery. Hemoglobin 9.1. Hypertension. Currently patient is hypotensive. Hyperlipidemia COPD not in exacerbation. FEV1 of 82% of the predicted History of smoking. Closed head injury during childhood. DVT prophylaxis. Plan: Patient will be continued aspirin and statins and duo nebs as needed. Continue pain management and DVT prophylaxis as per primary team. Patient is on IV hydration with Ringer's lactate. Encourage incentive spirometry and ambulation. Blood pressure medications on hold today. Will reinitiate once blood pressure starts going up. We will continue to follow and further recommendations tomorrow based on clinical course. Thank you for your consult.
[2021-05-22] MEDS: HYDROmorphone 0.5 MG/0.5 ML SYRINGE IVP PRN (22:06)
[2021-05-23] MEDS: HYDROcodone/APAP 7.5-325MG 1 EACH TAB PO PRN ×3 (01:29→12:34)
[2021-05-23] MEDS: LACTATED RINGERS 1,000 ML IV SCH ×2 (05:39)
[2021-05-23] MEDS: IPRATROPIUM-ALBUTEROL 3 ML NEB INHALATION SCH ×2 (08:06→12:46)
[2021-05-23] MEDS: SYMBICORT 160-4.5 MCG INHALER INHALATION SCH (08:06)
[2021-05-23] MEDS ORDERED: lisinopriL 20 MG TAB PO SCH (09:00)
[2021-05-23] MEDS ORDERED: ASPIRIN 81 MG PO SCH (09:00)
[2021-05-23 09:18] VITALS: BP 112/59; PULSE 94; RESP 17; TEMP 98.2
[2021-05-23] MEDS: HYDROmorphone 0.5 MG/0.5 ML SYRINGE IVP PRN (09:25)
--- NOTE | 2021-05-23 10:54 | P.DS ---
Providers Date of admission: 05/21/2021 Expected date of discharge: 05/23/21 Attending physician: Sandeep Goldberg Consults: 05/21/21 10:18 Consult Physician Routine Consulting Provider: Ivanna Sommers Consult Reason/Comments: post op medical management Do you want consulting provider notified?: Yes Primary care physician: Yfn Figueredo - Discharge Diagnosis(es) (1) Status post reverse total arthroplasty of right shoulder Current Visit: Yes Status: Acute (2) Hypertension Current Visit: Yes Status: Acute (3) Hyperlipidemia Current Visit: Yes Status: Acute (4) Unsteady gait Current Visit: Yes Status: Acute (5) History of shortness of breath Current Visit: Yes Status: Acute (6) Osteoarthritis of right shoulder Current Visit: Yes Status: Acute Priority: Medium (7) COPD (chronic obstructive pulmonary disease) Current Visit: No Status: Acute Hospital Course: This is a pleasant 85-year-old female who presented with right shoulder advanced rotator cuff arthropathy who failed outpatient conservative therapy. She was admitted for a right reverse total shoulder arthroplasty. The patient tolerated the procedure well and did well postoperatively. She has had some difficulty with pain control but her pain has been improving. She's been voiding excessive activities with the right upper extremity. She has continued to utilize a sling. Her incision is clean, dry, and intact. She is eating and voiding without difficulty. She has no other complaints at the bedside. She feel she is ready for discharge today. Condition on day of discharge stable. Patient will be discharged home. Patient was cleared preoperatively for surgery by Dr. Figueredo. Patient currently denies any nausea, vomiting, fever, or chills. Patient will remain nonweightbearing on the right upper extremity. She should continue to maintain sling for comfort support of her right upper extremity. If her incision remains clean, dry, and intact she may shower in 3 days without a dressing at that time. Patient should keep the surgical site clean and dry. MAPS was previously reviewed. An "Opiod Start Talking" Form has been signed and placed in the patient's chart. A prescription has been written for [place]bee 7.5 mg/325 mg, take 1-2 tabs every 6 hours as needed for pain, dispense #42. Patient is also given prescription for Keflex 500 mg, Zofran 4 mg, and Colace 100 mg at discharge. Prescriptions were sent to the [facility] pharmacy located within [facility]. She should take Keflex 500 mg until completion of the prescription. She should take Zofran 4 mg and Colace 100 mg as prescribed as needed. Patient's other medical diagnoses include COPD, hypertension, hyperlipidemia, history of shortness of breath, and unsteady gait Patient will be cleared for discharge from orthopedic standpoint pending clearance by medicine. Physical Exam on day of discharge: Patient is awake, alert, and oriented 3 Vital signs stable Good chest excursion with deep inspiration and expiration Dressing is intact over the right shoulder Surgical site is clean, dry, and intact with no active drainage Some mild bruising at the right shoulder near the armpit Neurovascularly intact right upper extremity Sling intact right upper extremity Patient is able to wiggle all fingers of the right hand without any significant difficulty No significant swelling at the right hand or fingers Procedures: Right reverse total shoulder arthroplasty Patient Condition at Discharge: Stable Plan - Discharge Summary Discharge Rx Participant: Yes New Discharge Prescriptions: New Docusate [Colace] 100 mg PO BID #60 capsule HYDROcodone/APAP 7.5-325MG [Witherbee 7.5-325] 1 - 2 each PO Q6HR PRN #42 tab PRN Reason: Pain Cephalexin [Keflex] 500 mg PO Q6HR 1 Days #20 cap Ondansetron [Zofran] 4 mg PO Q8HR PRN #21 tab PRN Reason: Nausea No Action Furosemide [Lasix] 20 mg PO DAILY Simvastatin [Zocor] 40 mg PO HS Aspirin [Adult Low Dose Aspirin EC] 81 mg PO DAILY lisinopriL [Zestril] 20 mg PO DAILY Montelukast [Singulair] 10 mg PO HS Ipratropium-Albuterol Nebulize [Duoneb 0.5 mg-3 mg/3 ml Soln] 3 ml INHALATION RT-QID #120 ampul.neb Ascorbic Acid [Vitamin C] 1,000 mg PO DAILY Cholecalciferol (Vitamin D3) [Vitamin D3 (125 MCG = 5,000 IU)] 125 mcg PO DAILY Ferrous Sulfate [Feosol] 325 mg PO DAILY Multivit with Calcium,Iron,Min [Women's Multivitamin] 1 each PO DAILY Vit C/E/Zn/Coppr/Lutein/Zeaxan [Preservision Areds 2 Softgel] 1 each PO DAILY Fluticasone/Vilanterol [Breo Ellipta 200-25 Mcg Inhaler] 1 inhalation INHALATION DAILY Hydrocodone/Acetaminophen [Hydrocodone/Acetaminophen 7.5-325] 1 each PO TID PRN PRN Reason: Pain Zinc 50 mg PO DAILY Discharge Medication List Aspirin [Adult Low Dose Aspirin EC] 81 mg PO DAILY 05/01/16 [History] Furosemide [Lasix] 20 mg PO DAILY 05/01/16 [History] Simvastatin [Zocor] 40 mg PO HS 05/01/16 [History] lisinopriL [Zestril] 20 mg PO DAILY 05/01/16 [History] Montelukast [Singulair] 10 mg PO HS 08/08/17 [History] Ipratropium-Albuterol Nebulize [Duoneb 0.5 mg-3 mg/3 ml Soln] 3 ml INHALATION RT-QID #120 ampul.neb 08/15/17 [Rx] Ascorbic Acid [Vitamin C] 1,000 mg PO DAILY 05/14/21 [History] Cholecalciferol (Vitamin D3) [Vitamin D3 (125 MCG = 5,000 IU)] 125 mcg PO DAILY 05/14/21 [History] Ferrous Sulfate [Feosol] 325 mg PO DAILY 05/14/21 [History] Fluticasone/Vilanterol [Breo Ellipta 200-25 Mcg Inhaler] 1 inhalation INHALATION DAILY 05/14/21 [History] Hydrocodone/Acetaminophen [Hydrocodone/Acetaminophen 7.5-325] 1 each PO TID PRN 05/14/21 [History] Multivit with Calcium,Iron,Min [Women's Multivitamin] 1 each PO DAILY 05/14/21 [History] Vit C/E/Zn/Coppr/Lutein/Zeaxan [Preservision Areds 2 Softgel] 1 each PO DAILY 05/14/21 [History] Zinc 50 mg PO DAILY 05/14/21 [History] Cephalexin [Keflex] 500 mg PO Q6HR 1 Days #20 cap 05/22/21 [Rx] Docusate [Colace] 100 mg PO BID #60 capsule 05/22/21 [Rx] HYDROcodone/APAP 7.5-325MG [[place]itherbee 7.5-325] 1 - 2 each PO Q6HR PRN #42 tab 05/22/21 [Rx] Ondansetron [Zofran] 4 mg PO Q8HR PRN #21 tab 05/22/21 [Rx] Follow up Appointment(s)/Referral(s): Sandeep Goldberg MD [STAFF PHYSICIAN] - 10 Days Activity/Diet/Wound Care/Special Instructions: 1. Non Weight Bearing with the right upper extremity 2. Maintain sling 3. If surgical site remains clean, dry, and intact, patient may shower 3 days without a dressing over the incision site 4. Keep wound clean and dry 5. Take meds as directed 6. F/U with Dr. Goldberg in office; patient may call [facility] at [phone] with any questions or concerns Discharge Disposition: HOME SELF-CARE
== END 2021-05-23 13:43 | disposition home or self-care (01) ==
LOC: OR 08:26 → 4SSUR 12:33 → OR 05-23 13:43
PROVIDERS: ATTEND Orthopaedic Surgery Sports Medicine
DX: M12.811 Other specific arthropathies, not elsewhere classified, right shoulder (principal); Z20.822 Contact with and (suspected) exposure to COVID-19; J44.9 Chronic obstructive pulmonary disease, unspecified; E78.5 Hyperlipidemia, unspecified; Z87.891 Personal history of nicotine dependence
CPT/HCPCS: 23474; 94640 ×4; 64415; 76942; 84132; 85025; 88300; 87635; 73020; C1776; J2250; J3370; J1100; J2710; J0690 ×3; J2405; J2001; J3010; J2795; J2370; J0330; J2704; J1170 ×2

== ENCOUNTER → 2022-01-11 | Outpatient (CLI) | payer MEDICARE ==
--- NOTE | 2022-01-11 12:53 | US ---
EXAMINATION TYPE: US venous doppler duplex LE LT DATE OF EXAM: 01/11/2022 12:26 PM COMPARISON: NONE CLINICAL HISTORY: M79.662 Pain in left lower leg, R22.42. SIDE PERFORMED: Left TECHNIQUE: The lower extremity deep venous system is examined utilizing real time linear array sonog ari with graded compression, doppler sonography and color-flow sonography. VESSELS IMAGED: Common Femoral Vein Deep Femoral Vein Greater Saphenous Vein * Femoral Vein Popliteal Vein Small Saphenous Vein * Proximal Calf Veins (* superficial vessels) Left Leg: Negative for DVT IMPRESSION: 1. Left lower extremity ultrasound negative for deep venous thrombosis.
== END | disposition home or self-care (01) ==
LOC: RADUSWWP 11:59
PROVIDERS: ATTEND Internal Medicine
DX: M79.662 Pain in left lower leg (principal); R22.42 Localized swelling, mass and lump, left lower limb